=== PATIENT | female | born 1945 | race Caucasian/White ===

== ENCOUNTER 2018-01-26 15:27 | Inpatient (IN) ==
--- NOTE | 2018-01-26 15:36 | Emergency Department Report ---
General Adult HPI - General Chief complaint: Medical Clearance Stated complaint: [facility] clearance Time Seen by Provider: 01/26/18 15:32 Source: patient Mode of arrival: ambulatory Limitations: no limitations - History of Present Illness HPI narrative: 72-year-old female presents to the emergency department with a chief complaint of depression and wanting to get off of her Ativan. She denies homicidal/ suicidal ideation or plan. She denies any pain or discomfort currently. She has no other complaints or associated symptoms. She denies any self injury or self-harm. She was at home when her symptoms began which of been gradually progressive in nature over the past several days. She does not note any exacerbating or remitting factors. - Related Data Home Medications Medication Instructions Recorded Confirmed Acetaminophen [Pain Relief] 500 mg PO Q6H PRN 01/26/18 01/26/18 Albuterol HFA Inhaler [Ventolin 1 puff ORAL INH Q6H PRN 01/26/18 01/26/18 Hfa 90 mcg/actuation] Albuterol HFA Inhaler [Ventolin 2 puff ORAL INH BID 01/26/18 01/26/18 Hfa 90 mcg/actuation] Albuterol Sulfate 2.5 mg AEROSOL Q4H PRN 01/26/18 01/26/18 Albuterol Sulfate [Proair Hfa] 1 puff INH Q4H PRN 01/26/18 01/26/18 Aspirin 81 mg PO DAILY 01/26/18 01/26/18 Benzocaine [Anbesol] 1 applicatio MM PRN PRN 01/26/18 01/26/18 Betamethasone/Propylene Glyc 1 applicatio TP BID 01/26/18 01/26/18 [Betamethasone Dp Aug 0.05% Crm] Biotin 10 mg PO DAILY 01/26/18 01/26/18 Capsaicin/Menthol [Capzasin Quick 1 applicatio TP Q6H PRN 01/26/18 01/26/18 Relief Gel] Cholecalciferol (Vitamin D3) 4,000 unit PO DAILY 01/26/18 01/26/18 [Vitamin D3] Clotrimazole/Betamethasone 1 applicatio TOP BID 01/26/18 01/26/18 [Lotrisone Cream] Cyanocobalamin (Vitamin B-12) 1,000 mcg PO DAILY 01/26/18 01/26/18 [Vitamin B-12] Dapsone [Dapsone] 25 mg PO DAILY 01/26/18 01/26/18 FentaNYL PATCH [Duragesic Patch] 75 mcg TD Q72H 01/26/18 01/26/18 Fluticasone/Vilanterol Inhaler 1 puff INH DAILY 01/26/18 01/26/18 [Breo Ellipta 100-25 mcg Inhaler] Furosemide [Lasix 40 mg Tab] 40 mg PO DAILY 01/26/18 01/26/18 Halobetasol Propionate [Ultravate] 1 applicatio TOP BID 01/26/18 01/26/18 Hydrocortisone 1% Cream 1 applicatio TOP BID 01/26/18 01/26/18 [Cortizone-10 Cream] Ibuprofen 400 mg PO Q8H PRN 01/26/18 01/26/18 LORazepam [Lorazepam] 1 mg PO BID 01/26/18 01/26/18 Levothyroxine Sodium 100 mcg PO DAILY 01/26/18 01/26/18 Lisinopril [Prinivil] 10 mg PO DAILY 01/26/18 01/26/18 Lubiprostone [Amitiza] 24 mcg PO BID 01/26/18 01/26/18 Magnesium Hydroxide [Milk of 30 ml PO DAILY PRN 01/26/18 01/26/18 Magnesia] Meloxicam [Meloxicam] 7.5 mg PO DAILY 01/26/18 01/26/18 Menthol [Biofreeze] 1 applicatio TP Q12H PRN 01/26/18 01/26/18 Metoclopramide [Reglan] 5 mg PO DAILY 01/26/18 01/26/18 Mirtazapine [Remeron] 45 mg PO HS 01/26/18 01/26/18 Multivit-Min/FA/Lycopen/Lutein 1 tab PO DAILY 01/26/18 01/26/18 [Centrum Silver Tablet] Naloxegol Oxalate [Movantik] 25 mg PO DAILY 01/26/18 01/26/18 Neomycn/Bacitrc/Polymyx/Pramox 1 applicatio TP BID PRN 01/26/18 01/26/18 [Neosporin + Pain Relief Oint] Nortriptyline [Pamelor] 25 mg PO HS 01/26/18 01/26/18 Nystatin [Nystop] 1 applicatio TOP PRN PRN 01/26/18 01/26/18 [place]-3/Dha/Epa/Fish Oil [Fish Oil 1,000 mg PO DAILY 01/26/18 01/26/18 1,000 mg Softgel] Ondansetron Odt [Zofran Odt Tablet] 4 mg PO BID 01/26/18 01/26/18 Oxycodone HCl/Acetaminophen 1 tab PO QID 01/26/18 01/26/18 [Endocet 7.5-325 mg Tablet] Peg 3350 238 G Bottle [Miralax] 17 gm PO DAILY 01/26/18 01/26/18 Petrolatum,White [Vaseline] 1 applicatio TP BID 01/26/18 01/26/18 Polyvinyl Alcohol [Artificial 1 drop EACH EYE TID 01/26/18 01/26/18 Tears] Promethazine Plain Liq [Phenergan 6.25 - 12.5 mg PO Q4H PRN 01/26/18 01/26/18 Elixir] Propylene Glycol [Lubricant Eye 1 applicatio EACH EYE HS 01/26/18 01/26/18 Drops] Saline 0.65% Nasal [place] [Deep Sea 2 spray EA NOSTRIL PRN PRN 01/26/18 01/26/18 Nasal Moisturizing [place]] Sennosides [Senna] 8.6 mg PO BID 01/26/18 01/26/18 Trolamine Salicylate/Aloe Vera 1 applicatio TP Q4H PRN 01/26/18 01/26/18 [Aspercreme 10% Cream] Umeclidinium [place] [Incruse 1 puff IH DAILY 01/26/18 01/26/18 Ellipta] Vit C/E/Zn/Coppr/Lutein/Zeaxan 1 cap PO BID 01/26/18 01/26/18 [Preservision Areds 2 Softgel] Vortioxetine [Trintellix] 10 mg PO PM 01/26/18 01/26/18 Allergies Allergy/AdvReac Type Severity Reaction Status Date / Time aspirin Allergy Verified 01/26/18 15:55 azithromycin Allergy Verified 01/26/18 15:55 erythromycin base Allergy Verified 01/26/18 15:55 iron Allergy Verified 01/26/18 15:55 Review of Systems Constitutional: Denies: fever, chills Eyes: Denies: eye pain, vision change ENT: Denies: ear pain, throat pain Cardiovascular: Denies: chest pain, palpitations Respiratory: Denies: cough, dyspnea Gastrointestinal: Denies: abdominal pain, nausea, vomiting, diarrhea Genitourinary: Denies: urgency, dysuria Musculoskeletal: Denies: back pain, arthralgia Integumentary: Denies: erythema, rash Neurological: Denies: headache, numbness, paresthesias Psychiatric: Reports: depression. Denies: anxiety, suicidal thoughts, homicidal thoughts Endocrine: Denies: polydipsia, polyuria Hematological/Lymphatic: Denies: easy bruising, lymphadenopathy Allergic/Immunologic: Denies: facial swelling, urticaria PFSH Patient Stated Medical History Cerebrovascular Accident Yes Other HEENT Yes: DRY EYE, NOSE/NASAL ISSUES Hypertension Yes Other Cardiology Yes: HEART FAILURE, ATHEROSCLEROTIC HEART DISEAS Chronic Obstructive Pulmonary Yes Disease (COPD) Other Respiratory Yes: PNEUMONITIS Other GI Yes: CONSTIPATION Anemia Yes Depression Yes Other Behavioral Health Yes: INSOMNIA Surgical History: Multiple orthopedic surgeries. Family History: Reviewed and noncontributory. - Social History Smoking status: Never smoker Substance use type: does not use Alcohol intake frequency: does not drink Physical Exam - Limitations Limitations: no limitations - General General appearance: alert, in no apparent distress - Normal Exams: Head:: Normocephalic without trauma Eyes:: Pupils are PERRLA w/ EOMI, No scleral icterus, irritation, or foreign bodies noted ENMT:: No facial trauma, nasal exudates, pharyngeal erythema, or exudates are noted Dental: No fractured, loose, or missing teeth noted Neck:: Full range of motion, without adenopathy, JVD, bruits or thyromegaly Chest/Respirations:: Clear all cloud, with good airflow, and symmetry bilaterally Cardiovascular:: Regular rate and rhythm, without murmur or gallop, Pulses 2+ all extremities, capillary refill, <2 seconds all extremities Abdomen:: Bowel sounds positive, soft, non-tender, non-distended, no hepatosplenomegaly, masses or bruits noted Lymphatic:: No lymphadenopathy, or lymphedema noted Musculoskeletal:: No tenderness, or deformity noted, good range of motion, all extremities Integumentary:: No rashes, hives, or bruising noted, hair and nails, without abnormality Neurological:: Patient is alert, and oriented, cranial nerves, motor/sensory/ cerebellar, exams w/o gross deficits, to observation Psychiatric:: Patient exhibits, appropriate attention, emotion and affect Course Vital Signs Temperature 98.5 F 01/26/18 15:30 Pulse Rate 93 01/26/18 15:30 Respiratory Rate 20 01/26/18 15:30 Blood Pressure 173/75 H 01/26/18 15:30 Pulse Oximetry 20 L 01/26/18 15:30 Temperature 98.5 F 01/26/18 15:30 Pulse Rate 76 01/26/18 18:38 Respiratory Rate 20 01/26/18 15:36 Blood Pressure 137/79 01/26/18 18:38 Pulse Oximetry 99 01/26/18 18:38 Medical Decision Making - MDM Narrative Medical decision making narrative: Labs / imaging were discussed in detail with the patient and family and questions are answered. Patient is medically clear for further evaluation and treatment at a psychiatric facility. Patient's urinalysis is most likely contaminated we will obtain urine culture and if positive we'll initiate antibiotic therapy. Patient is accepted by Dr. Horton for further evaluation and treatment to [facility]. No further orders from excepting physician who is in agreement with the current plan of management. Inital pulse ox was not 20% and this was documented incorrectly by RN. - Differential Diagnosis depression, anxiety, metabolic disorder, UTI - Lab Data Result diagrams: 01/26/18 15:49 01/26/18 15:49 Lab Results 01/26/18 01/26/18 01/26/18 Range/Units 15:34 15:49 15:49 WBC 9.6 (4.5-11.0) T/MM3 RBC 3.86 L (4.00-5.20) M/MM3 Hgb 11.7 L (12-16) GM/DL Hct 37.0 (36-46) % MCV 95.9 (80-100) UM3 MCH 30.3 (26-34) UUG MCHC 31.6 (31-37) GM/DL RDW Std Deviation 41.4 (36.9-50.2) FL Plt Count 334 (130-400) T/MM3 MPV 9.2 L (9.4-12.4) UM3 Immature Gran % (Auto) 0.2 (0.0-0.5) % Neut % (Auto) 64.2 (33-66) % Lymph % (Auto) 26.8 (23-45) % Benzie % (Auto) 6.1 (0-9.0) % Eos % (Auto) 2.1 (0-4) % Baso % (Auto) 0.6 (0-2) % Neut # (Auto) 6.2 (1.8-7.7) T/MM3 Lymph # (Auto) 2.6 (1-4.8) T/MM3 Benzie # (Auto) 0.6 (0-0.8) T/MM3 Eos # (Auto) 0.2 (0-0.5) T/MM3 Baso # (Auto) 0.1 (0-0.2) T/MM3 Abs Immat Gran (auto) 0.02 (0.00-0.03) T/MM3 Turbidity < 20 (0-20) Sodium 146 H (134-144) MEQ/L Potassium 3.7 (3.6-5) MEQ/L Chloride 107 (98-107) MEQ/L Carbon Dioxide 26 (22-30) MEQ/L Anion Gap 13 (5-15) meq/L BUN 17.0 (7-17) MG/DL Creatinine 1.1 (0.7-1.2) mg/dL GFR Calculation 49 BUN/Creatinine Ratio 16 (6-26) RATIO Glucose 89 (65-110) MG/DL Calculated Osmolality 282 H (261-280) MOSM/KG Calcium 9.0 (8.4-10.2) MG/DL Total Bilirubin 0.20 (0.20-1.30) MG/DL Icterus Index < 2 (0-7) AST 23 (14-36) U/L ALT 12 (1-35) U/L Alkaline Phosphatase 121 (38-126) U/L Troponin I < 0.012 (0-0.12) ng/ml Total Protein 7.0 (6.3-8.2) g/dL Albumin 3.9 (3.5-5.0) g/dL Globulin 3.1 (2.4-3.6) G/DL Albumin/Globulin Ratio 1.3 (1.1-2.2) RATIO Specimen Hemolysis < 15 (0-25) Ur Collection Type Urine, void-cc/notcc Urine Color Yellow (YELLOW) Urine Clarity Clear Urine pH 6.5 (5.0-8.0) Ur Specific [place] 1.010 L (1.015-1.025) Urine Protein Negative (NEGATIVE) Urine Glucose (UA) Negative (NEGATIVE) Urine Ketones Negative (NEGATIVE) Urine Occult Blood Negative (NEGATIVE) Urine Nitrate Negative (NEGATIVE) Urine Bilirubin Negative (NEGATIVE) Urine Urobilinogen 0.2 (NORMAL) EU/DL Ur Leukocyte Esterase 1+ A (NEGATIVE) Urine RBC 0-1 (0-3) /HPF Urine WBC 3-5 (0-5) /HPF Ur Squamous Epith Cells 5-10 Urine Bacteria 1+ H (NEGATIVE) Ur Culture Indicated? Cult not indicated - Radiology Data CXR - No acute processes. - EKG Data EKG #1 EKG results narrative: Sinus rhythm. 75 bpm. No STEMI. Disposition Clinical Impression: Depression Qualifiers: Depression Type: unspecified Qualified Code(s): F32.9 - Major depressive disorder, single episode, unspecified Disposition: 65 To [facility] Condition: Stable Time of Disposition: 18:00 - Seen By: physician
--- OUTSIDE RECORDS SUMMARY | 2018-01-26 15:41 | External Medical Summary | Summary of Care ---
:1945 Author Name Gino Saunders M.D. Address [address] [place], [place] [id number] Care Team Providers Name Role Phone Gino Saunders M.D. Unavailable Unavailable Prabhu Bill M.D. Unavailable Unavailable Gino Saunders Primary Care Provider Unavailable Unavailable Unavailable Unavailable Functional Status Functional Status Health Issues Name Dates Details Functional status health issues are not documented Status: Cognitive Status Health Issues Name Dates Details Cognitive status health issues are not documented Status: Problems Name Dates Details New Cough Status: Active Deep Pain In The Left Hip Status: Active Continuous Drug Dependence (304.91) Status: Active Diarrhea (787.91, R19.7) Status: Active Dysuria (788.1, R30.0) Status: Active Dizziness (780.4, R42) Status: Active Feeling weak (780.79, R53.1) Status: Active Anemia (285.9, D64.9) Status: Active Amblyopia (368.00, H53.009) Status: Active 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, 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 Tinea pedis (110.4, B35.3) Status: Active Combined senile cataract (366.19, H25.819) Status: Active Fatigue (780.79, R53.83) Status: Active Nonexudative macular degeneration (362.51, H35.31) Status: Active Anemia in chronic kidney disease (CKD) (285.21, N18.9) Status: Active Hypothyroidism (244.9, E03.9) Status: Active Asthma (493.90, J45.909) Status: Active Obesity (278.00, E66.9) Status: Active Hypocalcemia (275.41, E83.51) Status: Active Posterior capsular opacification, obscuring vision (366.53, H26.499) Status : Active Pseudophakia of both eyes (V43.1, Z96.1) Status: Active Pneumonia (486, J18.9) Status: Active Radiculopathy (729.2, M54.10) Status: Active Myelopathy (336.9, G95.9) Status: Active Incipient senile cataract (366.12, H25.099) Status: Active Mental status change (780.97, R41.82) Status: Active Chronic renal insufficiency (585.9, N18.9) Status: Active Hypercholesterolemia (272.0, E78.0) Status: Active Macular hole (362.54, H35.349) Status: Active Nonexudative macular degeneration (362.51, H35.31) Status: Active Pseudophakia (V43.1, Z96.1) Status: Active Myopia (367.1, H52.10) Status: Active Aftercare following explantation of hip joint prosthesis (V54.82, Z47.32) Status: Active Constipation (564.00, K59.00) Status: Active Depression (311, F32.9) Status: Active Neck pain (723.1, M54.2) Status: Active Osteoporosis (733.00, M81.0) Status: Active Osteoarthritis (715.90, M19.90) Status: Active Anxiety (300.00, F41.9) Status: Active GERD (gastroesophageal reflux disease) (530.81, K21.9) Status: Active Vitamin d deficiency (268.9, E55.9) Status: Active CHF (congestive heart failure) (428.0, I50.9) Status: Active Chronic kidney disease, stage III (moderate) (585.3, N18.3) Status: Active Chronic obstructive pulmonary disease (496, J44.9) Status: Active Hip pain (719.45, M25.559) Status: Active Pain in thoracic spine (724.1, M54.6) Status: Active Lower back pain (724.2, M54.5) Status: Active Hypertension (401.9, I10) Status: Active Bursitis, hip (726.5, M70.70) Status: Active Medications Name Dates Details Multiple Vitamins Oral Tablet TAKE 1 TABLET DAILY. Refills: 0 Prabhu Bill M.D. Started 01-Jan-2013 ActiveFentaNYL 75 MCG/HR Transdermal Patch 72 Hour APPLY 1 PATCH EVERY 3 DAYS Refills: 0 Prabhu Bill M.D. Started 01-Jan-2013 ActivePercocet 10-325 MG Oral Tablet TAKE 1 TABLET Every 6 hours PRN pain Refills: 0 Prabhu Blil M.D. Started 01-Jan-2013 ActiveAtivan 0.5 MG Oral Tablet TAKE 1/2 TAB Q 6 HRS PRN Refills: 0 Gino Saunders M.D. Started 01-Jan-2013 ActiveMirtazapine 30 MG Oral Tablet TAKE 1 TABLET AT BEDTIME. Refills: 0 Gino Saunders M.D. Started 03-Jan-2012 ActiveReglan 10 MG Oral Tablet TAKE 1 TABLET TWICE DAILY. Refills: 0 Gino Saunders M.D. Started 01-Jan-2013 ActiveAmitriptyline HCl - 10 MG Oral Tablet TAKE 1 TABLET AT BEDTIME. Refills: 0 Gino Saunders M.D. Started 15-Jan-2016 ActiveCeleXA 40 MG Oral Tablet TAKE 1 TABLET DAILY. Refills: 0 Gino Saunders M.D. Started 15-Jan-2016 ActiveFish Oil 1000 MG Oral Capsule TAKE 1 CAPSULE DAILY. Refills: 0 Gino Saunders M.D. Started 15-Jan-2016 ActiveFurosemide 40 MG Oral Tablet Take 1 1/2 tabs daily Refills: 0 Gino Saunders M.D. Started 15-Jan-2016 ActiveLisinopril 10 MG Oral Tablet TAKE 1 TABLET DAILY. Refills: 0 Gino Saunders M.D. Started 15-Jan-2016 ActiveMeloxicam 7.5 MG Oral Tablet TAKE 1 TABLET DAILY. Refills: 0 Gino Saunders M.D. Started 15-Jan-2016 ActiveSynthroid 100 MCG Oral Tablet TAKE 1 TABLET DAILY. Refills: 0 Gino Saunders M.D. Started 15-Jan-2016 ActiveVitamin D-3 1000 UNIT Oral Capsule take 2 po daily Refills: 0 Gino Saunders M.D. Started 15-Jan-2016 ActiveZofran 4 MG Oral Tablet take 1 po Q am Refills: 0 Gino Saunders M.D. Started 15-Jan-2016 ActiveSenokot 8.6 MG Oral Tablet take 1 po bid Refills: 0 Gino Saunders M.D. Started 15-Jan-2016 Active Allergies and Adverse Reactions Name Dates Details azithromycin Status: Active Erythromycin TABS Status: Active Iron TABS Status: Active Past Medical History Name Dates Details History of Chronic obstructive pulmonary disease (496, J44.9) Status: Resolved History of dizziness (V13.89, Z87.898) Status: Resolved History of hypertension (V12.59, Z86.79) Status: Resolved History of pulmonary embolism (V12.55, Z86.711) Status: Resolved History of Stroke syndrome (434.91, I63.9) Status: Resolved History of Tonic pupillary reaction, left (379.46, H57.052) Status: Resolved History of transient cerebral ischemia (V12.54, Z86.73) Status: Resolved Procedures Procedure Dates Details History of Oophorectomy History of Anterior Gastropexy For Hiatal Hernia History of Partial Gastrectomy History of Gallbladder Surgery History of Appendectomy History of Hysterectomy History of Back Surgery History of Wrist Surgery History of Diagnostic Esophagogastroduodenoscopy Completed:15-Nov-2010 History of Hip Replacement History of Extracaps Cataract Extract With Prosthesis Insert Right Eye History of Extracaps Cataract Extract With Prosthesis Insert Left Eye History of Nerve Block Transforaminal Epidural Lumbar Completed:26-Jul-2012 History of Nerve Block Transforaminal Epidural Lumbar Completed:27-Sep-2012 History of Nerve Block Transforaminal Epidural Lumbar Completed:27-Dec-2012 History of Inj Of Subst Other Than Anes/Contrast/Neurol Completed:2012 Solns Cervical History of Inj Of Subst Other Than Completed:11-Jul-2013 Anesth/Antispasm/Contrast/Neurolytic Lumbar History of Open Fracture Reduction History of Cholecystectomy Procedures not documented Immunization Name Dates Details Pneumo (Pneumovax) Administered on:22-May-2006 Influenza Administered on:15-Jun-2007 Fluzone Intramuscular Injectable Administered on:19-May-2009 Influenza A (H1N1) Monoval Vac Intramuscular Suspension Administered on: Influenza Administered on:26-May-2010 Pneumovax 23 25 MCG/0.5ML Injection Injectable Administered on: Lot #: [id number] Influenza Comments: 06/25/08 @ [place] Family History Mother Name Dates Details Family history of Alcoholism Status: Active Father Name Dates Details Family history of Heart Disease (V17.49) Status: Active Brother Name Dates Details Family history of Heart Disease (V17.49) Status: Active Family history of Heart Disease (V17.49) Status: Active Social History Name Dates Details Smoking StatusFormer smoker Vital Signs Date Test Result Details 18-Jan-2016 14:08 BP Systolic 120 mm[Hg] Status: BP Diastolic 70 mm[Hg] Status: Temperature 97.6 f Status: Heart Rate 84 /min Status: Height 63 in Status: Weight 151 lb Status: O2 SAT 95 % Status: Body Mass Index Calculated 26.75 kg/m2 Status: Body Surface Area Calculated 1.72 m2 Status: Results Date Description Value Details 14-Jan-2016 11:45 BASIC METABOLIC PROFILE 1210 SODIUM 139 (Better) POTASSIUM 4.3 (Better) BUN 13 (Better) CREATININE, SERUM 1.15 (Better) GLUCOSE 124 (Better) Plan of Care Planned Observations Name Dates Details Planned Goals not documented Goal Planned Encounters Appointment; Provider: Sean Ballesteros On 10:15 Appointment; Provider: Gino Saundres On 13:00 Appointment; Provider: Cathleen Acevedo On 20-Jul-2011 09:30 Appointment; Provider: Cathleen Acevedo On 15-Jul-2011 13:00 Appointment; Provider: Mariana River On 17:30 Appointment; Provider: Rimma Miller On 11:00 Appointment; Provider: Mariana River On 08:15 Appointment; Provider: Mariana River On 03-Feb-2011 08:15 Appointment; Provider: Mariana River On 20-Jan-2011 09:45 Appointment; Provider: Nereida Barillas On 08-Feb-2009 09:00 Appointment; Provider: Nereida Barillas On 07-Feb-2009 12:45 Appointment; Provider: Reyes English On 02-Dec-2008 12:15 Appointment; Provider: Nereida Barillas On 24-Oct-2008 18:30 Appointment; Provider: Cathleen Acevedo On 20-Jun-2008 11:45 Instructions Instructions not documented Encounters Appointment; Gino Saunders On 18-Jan-2016 Encounter Diagnosis: Problem not documented 14:00 Appointment; Reyes English On 12-Jan-2015 Encounter Diagnosis: Problem not documented 10:45 Appointment; Reyes English On 13-Oct-2014 Encounter Diagnosis: Problem not documented 10:45 Appointment; Reyes English On 01-Sep-2014 Encounter Diagnosis: Problem not documented 11:15 Appointment; Reyes English On 13-Aug-2014 Encounter Diagnosis: Problem not documented 11:15 Appointment; Petr Car On 15-Apr-2014 Encounter Diagnosis: Problem not documented 15:00
--- OUTSIDE RECORDS SUMMARY | 2018-01-26 15:41 | External Medical Summary | Summary of Care ---
:1945 Author Name Gino Saunders M.D. Address Unavailable Unavailable , Care Team Providers Name Role Phone Nicky Whitman, Gino Unavailable Unavailable Favian Whitman, Sean Parekh Unavailable Unavailable Landy Whitman, Prabhu Stewart Unavailable Unavailable Gino Saunders Unavailable Unavailable Unavailable Unavailable Unavailable Functional Status Functional Status Health Issues Name Dates Details Functional status health issues are not documented Status: Cognitive Status Health Issues Name Dates Details Cognitive status health issues are not documented Status: Problems Name Dates Details Asthma (493.90, J45.909) Status: Active Hypercholesterolemia (272.0, E78.0) Status: Active Macular hole (362.54, H35.349) Status: Active Nonexudative macular degeneration (362.51, H35.31) Status: Active GERD (gastroesophageal reflux disease) (530.81, K21.9) Status: Active Vitamin D deficiency (268.9, E55.9) Status: Active Bursitis, hip (726.5, M70.70) Status: Active Hip pain (719.45, M25.559) Status: Active Osteoporosis (733.00, M81.0) Status: Active Pain in thoracic spine (724.1, M54.6) Status: Active Stomatitis (528.00, K12.1) Status: Active Anxiety (300.00, F41.9) Status: Active Neck pain (723.1, M54.2) Status: Active Osteoarthritis (715.90, M19.90) Status: Active Hypothyroidism (244.9, E03.9) Status: Active Constipation (564.00, K59.00) Status: Active Chronic obstructive pulmonary disease (496, J44.9) Status: Active Depression (311, F32.9) Status: Active Hypertension (401.9, I10) Status: Active Lower back pain (724.2, M54.5) Status: Active Medications Name Dates Details Mirtazapine 30 MG Oral Tablet TAKE 1 TABLET AT BEDTIME. Refills: 0 Ingham M.D., Gino Start 03-Jan-2012 Active LORazepam 0.5 MG Oral Tablet TAKE 1/2 TAB Q 6 HRS PRN Quantity: 90 Refills: 3 Gino Saunders M.D. Start 01-Jan-2013 Active Multiple Vitamins Oral Tablet TAKE 1 TABLET DAILY. Refills: 0 Landy Whitman Prabhu Terry Start 01-Jan-2013 Active Reglan 10 MG Oral Tablet TAKE 1 TABLET TWICE DAILY. Refills: 0 Gino Saunders M.D. Start 01-Jan-2013 Active CeleXA 40 MG Oral Tablet TAKE 1 TABLET DAILY. Refills: 0 Gino Saunders M.D. Start 15-Jan-2016 Active Fish Oil 1000 MG Oral Capsule TAKE 1 CAPSULE DAILY. Refills: 0 Gino Saunders M.D. Start 15-Jan-2016 Active Furosemide 40 MG Oral Tablet Take 1 1/2 tabs daily Refills: 0 Gino Saunders M.D. Start 15-Jan-2016 Active Lisinopril 10 MG Oral Tablet TAKE 1 TABLET DAILY. Refills: 0 Gino Saunders M.D. Start 15-Jan-2016 Active Meloxicam 7.5 MG Oral Tablet TAKE 1 TABLET DAILY. Refills: 0 Gino Saunders M.D. Start 15-Jan-2016 Active Synthroid 100 MCG Oral Tablet TAKE 1 TABLET DAILY. Refills: 0 Gino Saunders M.D. Start 15-Jan-2016 Active Vitamin D-3 1000 UNIT Oral Capsule take 2 po daily Refills: 0 Gino Saunders M.D. Start 15-Jan-2016 Active Senokot 8.6 MG Oral Tablet take 1 po bid Refills: 0 Gino Saunders M.D. Start 15-Jan-2016 Active Joshua's Mouth Rinse 2 tsp swish and spit TID Refills: 0 Sean Ballesteros M.D. Start Active Terbinafine HCl - 250 MG Oral Tablet 1 po for 14 days Quantity: 14 Refills: 0 Sean Balletseros M.D. Start Active Spiriva HandiHaler 18 MCG Inhalation Capsule INHALE CONTENTS OF 1 CAPSULE ONCE DAILY. Quantity: 1 Refills: 6 Gino Saunders M.D. Start 11-Apr-2016 Active 30 Capsule Box Albuterol Sulfate (2.5 MG/3ML) 0.083% Inhalation Nebulization Solution USE 1 UNIT DOSE EVERY 4-6 HOURS NEEDED FOR WHEEZING . Quantity: 1 Refills: 5 Gino Saunders M.D. Start 11-Apr-2016 Active 3 ML Plas Cont (60 Plas Conts) Breo Ellipta 100-25 MCG/INH Inhalation Aerosol Powder Breath Activated USE 1 INHALATION ONCE DAILY. Quantity: 1 Refills: 6 Gino Saunders M.D. Start 11-Apr-2016 Active 60 Aerosol Powder Breath Activated Disp Pack Fluticasone Propionate 50 MCG/ACT Nasal Suspension USE 1 SPRAY IN EACH NOSTRIL TWICE DAILY. Quantity: 1 Refills: 6 Gino Saunders M.D. Start 11-Apr-2016 Active 15.8 ML Bottle Amitriptyline HCl - 10 MG Oral Tablet TAKE 3 TABLET AT BEDTIME. Refills: 0 Gino Saunders M.D. Start 15-Jan-2016 Active FentaNYL 75 MCG/HR Transdermal Patch 72 Hour APPLY 1 PATCH EVERY 3 DAYS Quantity: 10 Refills: 0 Gino Saunders M.D. Start 01-Jan-2013 Active Nystatin Powder USE DIRECTED. Quantity: 3 Refills: 3 Gino Saunders M.D. Start 20-Apr-2016 Active Ondansetron HCl - 4 MG Oral Tablet take 1 po Q am PRN Quantity: 30 Refills: 2 Gino Saunders M.D. Start 15-Jan-2016 Active Polyethylene Glycol 3350 Oral Powder MIX 1 CAPFUL (17GM) IN 8 OUNCES OF WATER, JUICE, OR TEA AND DRINK DAILY. Quantity: 1 Refills: 3 Gino Saunders M.D. Start 26-Apr-2016 Active 238 GM Bottle Allergies and Adverse Reactions Name Dates Details azithromycin (Allergy) Status: Active Erythromycin TABS (Allergy) Status: Active Iron TABS (Allergy) Status: Active Past Medical History Name Dates Details History of Acute heart failure, unspecified heart failure type (428.9, I50.9) Status: Resolved History of Anemia in chronic kidney disease (CKD) (285.21, N18.9) Status: Resolved History of Chronic obstructive pulmonary disease (496, J44.9) Status: Resolved History of Chronic renal insufficiency (585.9, N18.9) Status: Resolved History of dizziness (V13.89, Z87.898) [...] History of Wrist Surgery History of Diagnostic Completed: 15-Nov-2010 Esophagogastroduodenoscopy History of Hip Replacement History of Extracaps Cataract Extract With Prosthesis Insert Right Eye History of Extracaps Cataract Extract With Prosthesis Insert Left Eye History of Nerve Block Transforaminal Completed: 26-Jul-2012 Epidural Lumbar History of Nerve Block Transforaminal Completed: 27-Sep-2012 Epidural Lumbar History of Nerve Block Transforaminal Completed: 27-Dec-2012 Epidural Lumbar History of Inj Of Subst Other Than Completed: 11-Jul-2013 Anes/Contrast/Neurol Solns Cervical History of Inj Of Subst Other Than Completed: 11-Jul-2013 Anesth/Antispasm/Contrast/Neurolytic Lumbar History of Open Fracture Reduction History of Cholecystectomy Drug Screen Pain Management 8400 Ordered: 20-May-2016 Immunization Name Dates Details Pneumo (Pneumovax) on: 22-May-2006 Influenza on: 15-Jun-2007 Fluzone INJ on: 19-May-2009 Influenza A (H1N1) Monoval Vac SUSP on: 31-Jul-2009 Influenza on: 26-May-2010 Pneumovax 23 25 MCG/0.5ML Injection Injectable on: Lot #: [id number] Influenza Comments: 06/25/08 @ [place] Family History Mother Name Dates Details Family history of Alcoholism Status: Active Father Name Dates Details Family history of Heart Disease (V17.49) Status: Active Brother Name Dates Details Family history of Heart Disease (V17.49) Status: Active Family history of Heart Disease (V17.49) Status: Active Social History Name Dates Details - Status: Smoking Status Name Dates Details Former smoker Vital Signs Date Test Result Details 23-May-2016 10:49 BP Systolic 138 mm[Hg] Status: Comments: Location: ; Position: BP Diastolic 76 mm[Hg] Status: Comments: Location: ; Position: Temperature 97.9 f Status: Comments: Method: Heart Rate 80 /min Status: Comments: Location: ; Weight 146 lb Status: Physical Findings 98 Status: Comments: O2 Saturation Body Mass Index Calculated 25.86 kg/m2 Status: Body Surface Area Calculated 1.69 m2 Status: Results Date Description Value Details Results not documented Plan of Care Name Dates Details Planned Observations Planned Goals not documented Planned Encounters Appointment; Provider: Dario Grewal M.D. On 05-Jul-2016 14:00 Appointment; Provider: Hyun Lockhart On 05-Jul-2016 13:00 Appointment; Provider: Gino Saunders M.D. On 22-Jun-2016 11:00 Interventions Provided Medication ChangesFentaNYL 75 MCG/HR Transdermal Patch 72 Hour - RenewLORazepam 0.5 MG Oral Tablet - RenewNystatin Powder - StartOxycodone-Acetaminophen 10-325 MG Oral Tablet - Renew Instructions Name Dates Details Instructions not documented Encounters Appointment; Gino Saunders M.D. On 13-Apr-2016 Encounter Diagnosis: Problem not documented 14:00 Appointment; Sean Ballesteros M.D. On 11-Apr-2016 Encounter Diagnosis: Problem not documented 09:30 Appointment; Gino Saunders M.D. On Encounter Diagnosis: Problem not documented 13:30 Appointment; Sean Ballesteros M.D. On Encounter Diagnosis: Problem not documented 08:30 Appointment; Sean Ballesteros M.D. On Encounter Diagnosis: Problem not documented 10:15 Appointment; Gino Saunders M.D. On Encounter Diagnosis: Problem not documented 15:30 Appointment; Gino Saunders M.D. On 18-Jan-2016 Encounter Diagnosis: Problem not documented 14:00 Appointment; Reyes English M.D. On 12-Jan-2015 Encounter Diagnosis: Problem not documented 10:45 Appointment; Ryees English M.D. On 13-Oct-2014 Encounter Diagnosis: Problem not documented 10:45 Appointment; Reyes English M.D. On 01-Sep-2014 Encounter Diagnosis: Problem not documented 11:15 Appointment; Reyes English M.D. On 13-Aug-2014 Encounter Diagnosis: Problem not documented 11:15
--- OUTSIDE RECORDS SUMMARY | 2018-01-26 15:41 | External Medical Summary | Summary of Care ---
:1945 Author Name Nicky Whitman, Gino Address Unavailable Unavailable , Care Team Providers Name Role Phone Nicky Whitman, Gino Unavailable Unavailable Favian Whitman, Sean Parekh Unavailable Unavailable Landy Whitman, Prabhu Stewart Unavailable Unavailable Carmina Whitman, Dario Unavailable Unavailable Gino Saunders Unavailable Unavailable Unavailable Unavailable Unavailable Functional Status Functional Status Health Issues Name Dates Details Functional status health issues are not documented Status: Cognitive Status Health Issues Name Dates Details Cognitive status health issues are not documented Status: Problems Name Dates Details Nonexudative macular degeneration (362.51, H35.3190) Status: Active GERD (gastroesophageal reflux disease) (530.81, K21.9) Status: Active Vitamin D deficiency (268.9, E55.9) Status: Active Osteoporosis (733.00, M81.0) Status: Active Pain in thoracic spine (724.1, M54.6) Status: Active Stomatitis (528.00, K12.1) Status: Active Osteoarthritis (715.90, M19.90) Status: Active Chronic obstructive pulmonary disease (496, J44.9) Status: Active TIA (transient ischemic attack) (435.9, G45.9) Status: Active Macular hole (362.54, H35.349) Status: Active Neck pain (723.1, M54.2) Status: Active Mouth sores (528.9, K13.79) Status: Active Lichen planus (697.0, L43.9) Status: Active Hypothyroidism (244.9, E03.9) Status: Active Hypercholesterolemia (272.0, E78.00) Status: Active High risk medication use (V58.69, Z79.899) Status: Active 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 Refills: 0 Prabhu Bill M.D. Start 01-Jan-2013 Active Mirtazapine 30 MG Oral Tablet TAKE 1 TABLET AT BEDTIME. Refills: 0 Gino Saunders M.D. Start 03-Jan-2012 Active Reglan 10 MG Oral Tablet TAKE 1 TABLET TWICE DAILY. Refills: 0 Gino Saunders M.D. Start 01-Jan-2013 Active Furosemide 40 MG Oral Tablet Take [...] 0 Gino Saunders M.D. Start 15-Jan-2016 Active [place]'s Mouth Rinse 2 tsp swish and spit TID Refills: 0 Sean Ballesteros M.D. Start Active Terbinafine HCl - 250 MG Oral Tablet 1 po for 14 days Quantity: 14 Refills: 0 Sean Ballesteros M.D. Start Active Spiriva HandiHaler 18 MCG [...] 0 Gino Saunders M.D. Start 15-Jan-2016 Active Nystatin Powder USE DIRECTED. Quantity: 3 Refills: 3 Gino Saunders M.D. Start 20-Apr-2016 Active Ondansetron HCl - 4 MG Oral Tablet take 1 po Q am PRN Quantity: 30 Refills: 2 Gino Saunders M.D. Start 15-Jan-2016 Active Fish Oil 1000 MG Oral Capsule TAKE 1 CAPSULE DAILY. Refills: 0 Gino Saunders M.D. Start 15-Jan-2016 Active Polyethylene Glycol 3350 Oral Powder MIX 1 CAPFUL (17GM) IN 8 OUNCES OF WATER, JUICE, OR TEA AND DRINK DAILY. Quantity: 1 Refills: 11 Gino Saunders M.D. Start 26-Apr-2016 Active 238 GM Bottle Nystatin 808639 UNIT/ML Mouth/Throat Suspension Swish and swallow 10 ml TID X 14 days. Quantity: 1 Refills: 1 Dario Grewal M.D. Start 05-Jul-2016 Active 473 ML Bottle CeleXA 20 MG Oral Tablet TAKE 1 TABLET DAILY. Refills: 0 Gino Saunders M.D. 15-Jan-2016 Active Dapsone 25 MG Oral Tablet TAKE 1 TABLET DAILY. Quantity: 30 Refills: 1 Dario Grewal M.D. Start 05-Jul-2016 Active Oxycodone-Acetaminophen 10-325 MG Oral Tablet Take 2 po every six hrs. Quantity: 240 Refills: 0 Gino Saunders M.D. Start 15-Apr-2016 Active FentaNYL 75 MCG/HR Transdermal Patch 72 Hour APPLY 1 PATCH EVERY 3 DAYS Quantity: 10 Refills: 0 [place] M.Gino Kraft Start 01-Jan-2013 Active LORazepam 0.5 MG Oral Tablet TAKE 1 TABLET EVERY 6 HOURS NEEDED. Quantity: 90 Refills: 2 Nicky M.D.Gino Start 01-Jan-2013 Active Allergies and Adverse Reactions Name Dates Details Aspirin Adult Low Strength CHEW (Allergy) Status: Active azithromycin (Allergy) Status: Active Erythromycin TABS (Allergy) [...] Cholecystectomy Drug Screen Pain Management 8400 Ordered: 21-Jun-2016 Immunization Name Dates Details Pneumo (Pneumovax) on: 22-May-2006 Influenza on: 15-Jun-2007 Fluzone INJ on: 19-May-2009 Influenza A (H1N1) Monoval Vac SUSP on: 31-Jul-2009 Influenza on: 26-May-2010 Pneumovax 23 25 MCG/0.5ML Injection Injectable on: Lot #: [id number] Influenza Comments: 06/25/08 @ [place] Family History Unknown Family Member Name Dates Details Family history of rheumatoid arthritis (V17.7, Z82.61) Comments: Family History Status: Active Family history of thyroid disease (V18.19, Z83.49) Comments: Family History Status: Active Family history of Chronic low back pain (724.2, M54.5) Comments: Family History Status: Active Mother Name Dates Details Family history of Alcoholism Status: Active Father Name Dates Details Family history of Heart Disease (V17.49) Status: Active Brother Name Dates Details Family history of Heart Disease (V17.49) Status: Active Family history of Heart Disease (V17.49) Status: Active Social History Name Dates Details - Status: Smoking Status Name Dates Details Former smoker Vital Signs Date Test Result Details 17-Aug-2016 15:14 BP Systolic 120 mm[Hg] Status: Comments: Location: ; Position: BP Diastolic 66 mm[Hg] Status: Comments: Location: ; Position: Temperature 97.9 f Status: Comments: Method: Heart Rate 94 /min Status: Comments: Location: ; Weight 146 lb Status: Physical Findings 98 Status: Comments: O2 Saturation Body Mass Index Calculated 25.86 kg/m2 Status: Body Surface Area Calculated 1.69 m2 Status: Results Date Description Value Details 27-Jul-2016 14:35 ALT 1185 ALT 17 U/L Range: 14-59 14:35 AST 1180 AST 21 U/L Range: 8-35 15:54 ERYTHROCYTE SED RATE 7800 Comments: Items were attached to this order: ESR ERYTHROCYTE SED RATE 12 mm/60 min. Range: 0-20 11-Aug-2016 15:40 MAMMOGRAM-SCREENING XM SCREENING Range: 0 Plan of Care Name Dates Details Planned Observations Planned Goals not documented Planned Encounters Appointment; Provider: Sean Ballesteros M.D. On 23-Nov-2016 11:00 Appointment; Provider: Dario Grewal M.D. On 24-Aug-2016 15:30 Appointment; Provider: Gino Saunders M.D. On 24-Aug-2016 10:30 Interventions Provided Medication ChangesFentaNYL 75 MCG/HR Transdermal Patch 72 Hour - RenewLORazepam 0.5 MG Oral Tablet - RenewOxycodone-Acetaminophen 10-325 MG Oral Tablet - Renew Instructions Name Dates Details Instructions not documented Encounters Appointment; Dario Grewal M.D. On 01-Aug-2016 Encounter Diagnosis: Problem not documented 13:15 Appointment; Dario Grewal M.D. On 05-Jul-2016 Encounter Diagnosis: Problem not documented 14:00 Appointment; Cindy Chavira P.A. On 05-Jul-2016 Encounter Diagnosis: Problem not documented 13:00 Appointment; Gino Saunders M.D. On 04-Jul-2016 Encounter Diagnosis: Problem not documented 11:30 Appointment; Gino Saunders M.D. On 22-Jun-2016 Encounter Diagnosis: Problem not documented 11:00 Appointment; Gino Saunders M.D. On 23-May-2016 Encounter Diagnosis: Problem not documented 10:30 Appointment; Sean Ballesteros M.D. On 18-May-2016 Encounter Diagnosis: Problem not documented 09:45 Appointment; Gino Saunders M.D. On 20-Apr-2016 Encounter Diagnosis: Problem not documented 10:45 Appointment; Gino Saunders M.D. On 13-Apr-2016 Encounter [...] documented 10:45 Appointment; Reyes English M.D. On 13-Oct-2014 Encounter Diagnosis: Problem not documented 10:45 Appointment; Reyes English M.D. On 01-Sep-2014 Encounter Diagnosis: Problem not documented 11:15
--- OUTSIDE RECORDS SUMMARY | 2018-01-26 15:41 | External Medical Summary | Summary of Care ---
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 Start 15-Jan-2016 Active [place]'s Mouth Rinse 2 tsp swish and spit [...] Start 26-Apr-2016 Active 238 GM Bottle Nystatin 095019 UNIT/ML Mouth/Throat Suspension Swish and swallow 10 ml TID X 14 days. Quantity: 1 Refills: 1 Dario Grewal M.D. Start 05-Jul-2016 Active 473 ML Bottle CeleXA 20 MG Oral Tablet TAKE 1 TABLET DAILY. Refills: 0 Gino Saunders M.D. Start 15-Jan-2016 Active Dapsone 25 MG Oral Tablet TAKE 1 TABLET DAILY. Quantity: 30 Refills: 1 Dario Grewal M.D. Start 05-Jul-2016 Active FentaNYL 75 MCG/HR Transdermal Patch 72 Hour APPLY 1 PATCH EVERY 3 DAYS Quantity: 10 Refills: 0 [place] ijmenez M.D. Start 01-Jan-2013 Active LORazepam 0.5 MG Oral Tablet TAKE 1 TABLET BID Quantity: 62 Refills: 2 [place] jimenez M.D. Start 01-Jan-2013 Active Oxycodone-Acetaminophen 10-325 MG Oral Tablet Take 1 po QID. Quantity: 124 Refills: 0 Gino Saunders M.D. Start 15-Apr-2016 Active Allergies and Adverse Reactions Name Dates [...] Lot #: [id number] Influenza Comments: 06/25/08 @ [place] Family History Unknown Family Member Name Dates [...] Ballesteros M.D. On 23-Nov-2016 11:00 Appointment; Provider: Gino Saunders M.D. On 20-Sep-2016 11:00 Appointment; Provider: Dario Grewal M.D. On 24-Aug-2016 15:30 Appointment; Provider: Gino Saunders M.D. On 24-Aug-2016 10:30 Interventions Provided Medication ChangesOxycodone-Acetaminophen 10-325 MG Oral Tablet - Renew Instructions Name Dates Details Instructions not documented Encounters Appointment; Gino Saunders M.D. On 17-Aug-2016 Encounter Diagnosis: Problem not documented 15:00 Appointment; Dario Grewal M.D. On 01-Aug-2016 Encounter [...]
--- OUTSIDE RECORDS SUMMARY | 2018-01-26 15:42 | External Medical Summary | Summary of Care ---
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, L60.3) Status: Active Bursitis, hip (726.5, M70.70) Status: Active Encounter for nursing home current use of dapsone (V58.69, Z79.899) Status: Active Chronic obstructive pulmonary disease (496, J44.9) Status: Active Hypothyroidism (244.9, E03.9) Status: Active Lichen planus (697.0, L43.9) Status: Active Anemia (285.9, D64.9) Status: Active Depression (311, F32.9) Status: Active Hypercholesterolemia (272.0, E78.00) Status: Active Lower back pain (724.2, M54.5) Status: Active Neck pain (723.1, M54.2) Status: Active Pain, hip (719.45, M25.559) Status: Active Anxiety (300.00, F41.9) Status: Active Asthma (493.90, J45.909) Status: Active Ataxic gait (781.2, R26.0) Status: Active Chronic GERD (530.81, K21.9) Status: Active Constipation (564.00, K59.00) Status: Active Hypertension (401.9, I10) Status: Active Medications Name Dates Details Multiple Vitamins Oral Tablet TAKE 1 TABLET DAILY. Refills: 0 Prabhu Bill M.D. Start 01-Jan-2013 Active Mirtazapine 30 MG Oral Tablet TAKE 1 TABLET AT BEDTIME. Refills: 0 Gino Saunders M.D. Start 03-Jan-2012 Active Furosemide 40 MG Oral Tablet Take 1 1/2 tabs daily Refills: 0 Gino Saunders M.D. 15-Jan-2016 Active Lisinopril 10 MG Oral Tablet TAKE 1 TABLET DAILY. Refills: 0 Gino Saunders M.D. Start 15-Jan-2016 Active Meloxicam 7.5 MG Oral Tablet TAKE 1 TABLET DAILY. Refills: 0 Gino Saunders M.D. 15-Jan-2016 Active Synthroid 100 MCG Oral Tablet [...] Refills: 0 Sean Ballesteros M.D. Start Active Albuterol Sulfate (2.5 MG/3ML) 0.083% Inhalation Nebulization Solution USE 1 UNIT DOSE EVERY 4-6 HOURS NEEDED FOR WHEEZING . Quantity: 1 Refills: 5 Gino Saunders M.D. Start 11-Apr-2016 Active 3 ML Plas Cont (60 Plas Conts) Nystatin Powder USE DIRECTED. Quantity: 3 Refills: 3 Gino Saunders M.D. Start 20-Apr-2016 Active Fish Oil 1000 MG Oral Capsule TAKE 1 CAPSULE DAILY. Refills: 0 Gino Saunders M.D. Start 15-Jan-2016 Active Polyethylene Glycol 3350 Oral Powder MIX 1 CAPFUL (17GM) IN 8 OUNCES OF WATER, JUICE, OR TEA AND DRINK DAILY. Quantity: 1 Refills: 11 Gino Saunders M.D. Start 26-Apr-2016 Active 238 GM Bottle Nystatin 115528 UNIT/ML Mouth/Throat Suspension Swish and swallow 10 ml TID X 14 days. Quantity: 1 Refills: 1 Dario Grewal M.D. Start 05-Jul-2016 Active 473 ML Bottle CeleXA 20 MG Oral Tablet TAKE 1 TABLET DAILY. Refills: 0 Gino Saunders M.D. Start 15-Jan-2016 Active Ondansetron HCl - 4 MG Oral Tablet take 1 po Q am PRN Quantity: 30 Refills: 2 Gino Saunders M.D. Start 15-Jan-2016 Active Aspir-Low 81 MG Oral Tablet Delayed Release TAKE 1 TABLET DAILY. Quantity: 31 Refills: 11 Gino Saunders M.D. Start 26-Aug-2016 Active LORazepam 0.5 MG Oral Tablet What tablet at 8 a.m. and at 2 PM and 7 PM. Quantity: 90 Refills: 2 Gino Saunders M.D. Start 01-Jan-2013 Active Breo Ellipta 100-25 MCG/INH Inhalation Aerosol Powder Breath Activated USE 1 INHALATION ONCE DAILY. Quantity: 1 Refills: 6 Gino Saunders M.D. Start 11-Apr-2016 Active 60 Aerosol Powder Breath Activated Disp Pack Dapsone 25 MG Oral Tablet TAKE 2 TABLETS BY MOUTH EVERY DAY Quantity: 60 Refills: 0 Dario Grewal M.D. Start 21-Oct-2016 Active Spiriva HandiHaler 18 MCG Inhalation Capsule INHALE CONTENTS OF 1 CAPSULE ONCE DAILY. Quantity: 1 Refills: 6 Gino Saunders M.D. Start 11-Apr-2016 Active 30 Capsule Box Reglan 5 MG Oral Tablet TAKE 1 TABLET TWICE DAILY. Refills: 0 Gino Saunders M.D. Start 01-Jan-2013 Active Nortriptyline HCl - 25 MG Oral Capsule TAKE 1 CAPSULE AT BEDTIME. Refills: 0 [place] M.DYolanda Gino Start 26-Oct-2016 Active Vitamin D-3 1000 UNIT Oral Capsule TAKE 4 CAPSULES DAILY. Quantity: 360 Refills: 2 [place] M.D., Gino Start 15-Jan-2016 Active FentaNYL 75 MCG/HR Transdermal Patch 72 Hour APPLY 1 PATCH EVERY 3 DAYS Quantity: 10 Refills: 0 [place] M.D. Gino Start 01-Jan-2013 Active Endocet 7.5-325 MG Oral Tablet 1 tablet every 6 hours Quantity: 120 Refills: 0 [place] M.D., Gion Start 15-Apr-2016 Active Allergies and Adverse Reactions [...] of Wrist Surgery History of Diagnostic Esophagogastroduodenoscopy Completed: 15-Nov-2010 History of Hip Replacement History of Extracaps Cataract Extract With Prosthesis Insert Right Eye History of Extracaps Cataract Extract With Prosthesis Insert Left Eye History of Nerve Block Transforaminal Epidural Lumbar Completed: 26-Jul-2012 History of Nerve Block Transforaminal Epidural Lumbar Completed: 27-Sep-2012 History of Nerve Block Transforaminal Epidural Lumbar Completed: 27-Dec-2012 History of Inj Of Subst Other Than Anes/Contrast/Neurol Completed: 2012 Solns Cervical History of Inj Of Subst Other Than Completed: 11-Jul-2013 Anesth/Antispasm/Contrast/Neurolytic Lumbar History of Open Fracture Reduction History of Cholecystectomy Procedures not documented Immunization Name Dates Details Pneumo (Pneumovax) on: 22-May-2006 Influenza on: 15-Jun-2007 Fluzone INJ on: 19-May-2009 Influenza A (H1N1) Monoval Vac SUSP on: 31-Jul-2009 Influenza on: 26-May-2010 Pneumovax 23 25 MCG/0.5ML Injection Injectable on: Lot #: [id number] Influenza Comments: 06/25/08 @ [place] Family History Unknown Family Member Name Dates [...] smoker Vital Signs Date Test Result Details 15-Nov-2016 11:00 BP Systolic 118 mm[Hg] Status: Comments: Location: ; Position: BP Diastolic 64 mm[Hg] Status: Comments: Location: ; Position: Temperature 98.6 f Status: Heart Rate 97 /min Status: Weight 143 lb Status: Physical Findings 98 Status: Comments: O2 Saturation Body Mass Index Calculated 25.33 kg/m2 Status: Body Surface Area Calculated 1.68 m2 Status: 19-Oct-2016 09:59 BP Systolic 130 mm[Hg] Status: Comments: Location: ; Position: BP Diastolic 78 mm[Hg] Status: Comments: Location: ; Position: Temperature 98.6 f Status: Comments: Method: Heart Rate 80 /min Status: Comments: Location: ; Weight 148 lb Status: Physical Findings 97 Status: Comments: O2 Saturation Body Mass Index Calculated 26.22 kg/m2 Status: Body Surface Area Calculated 1.7 m2 Status: 17-Oct-2016 16:19 BP Systolic 144 mm[Hg] Status: Comments: Location: ; Position: BP Diastolic 72 mm[Hg] Status: Comments: Location: ; Position: Results Date Description Value Details 17-Oct-2016 16:03 CBC w/ Auto Diff 7150 WBC 8.3 K/uL Range: 4.5-11.0 RBC 3.73 mil/uL Range: 3.60-5.00 HGB 12.0 g/dL Range: 12.0-16.0 Comments: Variance from previous testing noted.----- HCT 37.2 % Range: 36.0-48.0 MCV 99.9 fL (Above high threshold) Range: 80.0-99.0 MCH 32.1 pg Range: 27.3-32.5 MCHC 32.2 % Range: 32.0-36.0 RDW 13.6 % Range: 11.6-14.8 PLATELETS 394 K/uL Range: 150-400 MPV 6.7 fL Range: 6.0-11.0 %NEUTRO 53.7 % Range: 37.0-80.0 %LYMPHS 35.7 % Range: 13.0-50.0 %MONO 3.9 % Range: 0.0-12.0 %EOS 4.4 % Range: 0.0-7.0 %BASO 0.4 % Range: 0.0-2.5 %ALE 1.9 % Range: 0.0-5.0 NEUTRO 4.4 K/uL Range: 2.0-6.9 LYMPHS 3.0 K/uL Range: 0.6-3.4 MONOS 0.3 K/uL Range: 0.0-0.9 EOS 0.4 K/uL Range: 0.0-0.7 BASO 0.0 K/uL Range: 0.0-0.2 16:32 Comprehensive Metabolic Panel 1212 SODIUM 137 mmol/L Range: 133-144 POTASSIUM 4.5 mmol/L Range: 3.5-5.1 CHLORIDE 102 mmol/L Range: 98-110 CARBON DIOXIDE 25.3 mmol/L Range: 23.0-33.0 ANION GAP 10 mmol/L Range: 6-16 BUN 15 mg/dL Range: 7-18 CREATININE, SERUM 1.16 mg/dL (Above high Range: 0.55-1.02 threshold) BUN:CREATININE RATIO 13 EST GFR, 56 ml/min (Below low Range: >60 threshold) EST GFR, NON-AFR [place] 46 ml/min (Below low Range: >60 threshold) Comments: EST GFR is reported in ml/min per 1.73 m2 of body surface area. ----- GLUCOSE 90 mg/dL Range: 70-100 ALK PHOSPHATASE 146 U/L (Above high Range: 46-116 threshold) TOTAL BILIRUBIN 0.20 mg/dL Range: 0.20-1.00 AST 18 U/L Range: 8-35 ALT 11 U/L (Below low Range: 14-59 threshold) ALBUMIN 3.4 g/dL Range: 3.4-5.0 TOTAL PROTEIN 7.4 g/dL Range: 6.4-8.2 A/G RATIO 0.9 units (Below low Range: 1.0-1.8 threshold) CALCIUM 8.1 mg/dL (Below low Range: 8.5-10.1 threshold) 16:38 ERYTHROCYTE SED RATE 7800 ERYTHROCYTE SED RATE 13 mm/60 min. Range: 0-20 -Oct-2016 14:46 BASIC METABOLIC PROFILE 1210 SODIUM 136 mmol/L Range: 133-144 POTASSIUM 4.5 mmol/L Range: 3.5-5.1 CHLORIDE 102 mmol/L Range: 98-110 CARBON DIOXIDE 25.6 mmol/L Range: 23.0-33.0 ANION GAP 8 mmol/L Range: 6-16 BUN 14 mg/dL Range: 7-18 CREATININE, SERUM 1.06 mg/dL (Above high Range: 0.55-1.02 threshold) EST GFR, >60 ml/min Range: >60 EST GFR, NON-AFR [place] 51 ml/min (Below low Range: >60 threshold) Comments: EST GFR is reported in ml/min per 1.73 m2 of body surface area. ----- BUN:CREATININE RATIO 13 GLUCOSE 86 mg/dL Range: 70-100 CALCIUM 8.0 mg/dL (Below low Range: 8.5-10.1 threshold) 15:01 THYROID STIM. HORMONE 3602 THYROID STIM. HORMONE 1.308 uIU/mL Range: 0.550-4.780 Comments: No established reference ranges for infants and children &lt ;2 years of age----- 15:19 CBC w/ Auto Diff 7150 WBC 7.0 K/uL Range: 4.5-11.0 RBC 3.69 mil/uL Range: 3.60-5.00 HGB 11.7 g/dL (Below low threshold) Range: 12.0-16.0 HCT 36.7 % Range: 36.0-48.0 MCV 99.3 fL (Above high threshold) Range: 80.0-99.0 MCH 31.6 pg Range: 27.3-32.5 MCHC 31.8 % (Below low threshold) Range: 32.0-36.0 RDW 12.8 % Range: 11.6-14.8 PLATELETS 364 K/uL Range: 150-400 MPV 7.5 fL Range: 6.0-11.0 %NEUTRO 62.0 % Range: 37.0-80.0 %LYMPHS 28.5 % Range: 13.0-50.0 %MONO 4.4 % Range: 0.0-12.0 %EOS 3.1 % Range: 0.0-7.0 %BASO 0.5 % Range: 0.0-2.5 %ALE 1.5 % Range: 0.0-5.0 NEUTRO 4.3 K/uL Range: 2.0-6.9 LYMPHS 2.0 K/uL Range: 0.6-3.4 MONOS 0.3 K/uL Range: 0.0-0.9 EOS 0.2 K/uL Range: 0.0-0.7 BASO 0.0 K/uL Range: 0.0-0.2 Plan of Care Name Dates Details Planned Observations Planned Goals not documented Planned Encounters Appointment; Provider: Dario Grewal M.D. On 10-Jan-2017 14:00 Appointment; Provider: Gino Saunders M.D. On 14-Dec-2016 11:00 Interventions Provided Medication ChangesEndocet 7.5-325 MG Oral Tablet - RenewFentaNYL 75 MCG/HR Transdermal Patch 72 Hour - Renew Instructions Name Dates Details Instructions not documented Encounters Appointment; Gino Saunders M.D. On 19-Oct-2016 Encounter Diagnosis: Problem not documented 10:30 Appointment; Dario Grewal M.D. On 17-Oct-2016 Encounter Diagnosis: Problem not documented 16:30 Appointment; Gino Saunders M.D. On 20-Sep-2016 Encounter Diagnosis: Problem not documented 11:00 Appointment; Dario Grewal M.D. On 24-Aug-2016 Encounter Diagnosis: Problem not documented 15:30 Appointment; Gino Saunders M.D. On 17-Aug-2016 Encounter [...]
--- OUTSIDE RECORDS SUMMARY | 2018-01-26 15:42 | External Medical Summary | Summary of Care ---
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, L60.3) Status: Active Asthma (493.90, J45.909) Status: Active Ataxic gait (781.2, R26.0) Status: Active Bursitis, hip (726.5, M70.70) Status: Active Constipation (564.00, K59.00) Status: Active Pain, hip (719.45, M25.559) Status: Active Lichen planus (697.0, L43.9) Status: Active 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 Start 15-Jan-2016 Active [place]'s Mouth Rinse 2 tsp swish and spit TID Refills: 0 Saen Ballesteros M.D. Start Active Terbinafine HCl - [...] 3 ML Plas Cont (60 Plas Conts) Fluticasone Propionate 50 MCG/ACT Nasal Suspension USE [...] Start 26-Apr-2016 Active 238 GM Bottle Nystatin 112338 UNIT/ML Mouth/Throat Suspension Swish and swallow 10 [...] 11 Gino Saunders M.D. Start 26-Aug-2016 Active Endocet 7.5-325 MG Oral Tablet TAKE 1 TABLET EVERY 6 HOURS NEEDED FOR PAIN. Quantity: 120 Refills: 0 Gino Saunders M.D. Start 15-Apr-2016 Active FentaNYL 75 MCG/HR Transdermal Patch 72 Hour APPLY 1 PATCH EVERY 3 DAYS Quantity: 10 Refills: 0 Gino Saunders M.D. Start 01-Jan-2013 Active LORazepam 0.5 MG Oral Tablet What tablet at 8 a.m. and at 2 PM and 7 PM. Quantity: 90 Refills: 2 Gino Saunders M.D. Start 01-Jan-2013 Active Dapsone 25 MG Oral Tablet TAKE 2 TABLETS BY MOUTH EVERY DAY CALL TO RE-ORDER Quantity: 60 Refills: 0 Carmina Whitman Dario Start 27-Sep-2016 Active Breo Ellipta 100-25 MCG/INH Inhalation Aerosol Powder Breath Activated USE 1 INHALATION ONCE DAILY. Quantity: 1 Refills: 6 Gino Saunders M.D. Start 11-Apr-2016 Active 60 Aerosol Powder Breath Activated Disp Pack Allergies and Adverse Reactions Name Dates Details [...] Lot #: [id number] Influenza Comments: 06/25/08 @ [place] Family History Unknown Family Member Name Dates [...] smoker Vital Signs Date Test Result Details 17-Oct-2016 16:19 BP Systolic 144 mm[Hg] Status: Comments: Location: ; Position: BP Diastolic 72 mm[Hg] Status: Comments: Location: ; Position: 20-Sep-2016 10:23 BP Systolic 118 mm[Hg] Status: Comments: Location: ; Position: BP Diastolic 66 mm[Hg] Status: Comments: Location: ; Position: Temperature 99.3 f Status: Heart Rate 82 /min Status: Physical Findings 16 Status: Comments: Respiration Physical Findings 98 Status: Comments: O2 Saturation 20-Sep-2016 10:15 Weight 148 lb Status: Body Mass Index Calculated 26.22 kg/m2 Status: Body Surface Area Calculated 1.7 m2 Status: Results Date Description Value Details 20-Sep-2016 14:38 Comprehensive Metabolic Panel 1212 SODIUM 140 mmol/L Range: 133-144 POTASSIUM 4.9 mmol/L Range: 3.5-5.1 CHLORIDE 105 mmol/L Range: 98-110 CARBON DIOXIDE 24.2 mmol/L Range: 23.0-33.0 ANION GAP 11 mmol/L Range: 6-16 BUN 13 mg/dL Range: 7-18 CREATININE, SERUM 1.19 mg/dL (Above high Range: 0.55-1.02 threshold) BUN:CREATININE RATIO 11 EST GFR, 54 ml/min (Below low Range: >60 threshold) EST GFR, NON-AFR MACANESE 45 ml/min (Below low Range: >60 threshold) Comments: EST GFR is reported in ml/min per 1.73 m2 of body surface area. ----- GLUCOSE 79 mg/dL Range: 70-100 ALK PHOSPHATASE 141 U/L (Above high Range: 46-116 threshold) TOTAL BILIRUBIN 0.30 mg/dL Range: 0.20-1.00 AST 18 U/L Range: 8-35 ALT 13 U/L (Below low Range: 14-59 threshold) ALBUMIN 3.1 g/dL (Below low Range: 3.4-5.0 threshold) TOTAL PROTEIN 7.2 g/dL Range: 6.4-8.2 A/G RATIO 0.8 units (Below low Range: 1.0-1.8 threshold) CALCIUM 8.1 mg/dL (Below low Range: 8.5-10.1 threshold) 15:06 CBC w/ Auto Diff 7150 WBC 6.6 K/uL Range: 4.5-11.0 RBC 3.22 mil/uL (Below low threshold) Range: 3.60-5.00 HGB 10.2 g/dL (Below low threshold) Range: 12.0-16.0 HCT 31.4 % (Below low threshold) Range: 36.0-48.0 MCV 97.6 fL Range: 80.0-99.0 MCH 31.8 pg Range: 27.3-32.5 MCHC 32.6 % Range: 32.0-36.0 RDW 14.7 % Range: 11.6-14.8 PLATELETS 475 K/uL (Above high threshold) Range: 150-400 MPV 8.4 fL Range: 6.0-11.0 %NEUTRO 54.0 % Range: 37.0-80.0 %LYMPHS 34.7 % Range: 13.0-50.0 %MONO 5.2 % Range: 0.0-12.0 %EOS 4.2 % Range: 0.0-7.0 %BASO 0.6 % Range: 0.0-2.5 %ALE 1.4 % Range: 0.0-5.0 NEUTRO 3.5 K/uL Range: 2.0-6.9 LYMPHS 2.3 K/uL Range: 0.6-3.4 MONOS 0.3 K/uL Range: 0.0-0.9 EOS 0.3 K/uL Range: 0.0-0.7 BASO 0.0 K/uL Range: 0.0-0.2 15:40 ERYTHROCYTE SED RATE 7800 ERYTHROCYTE SED RATE 34 mm/60 min. (Above high threshold) Range: 0-20 17-Oct-2016 16:03 CBC w/ Auto Diff 7150 [...] low Range: >60 threshold) EST GFR, NON-AFR MACANESE 46 ml/min (Below low Range: >60 threshold) [...] SED RATE 13 mm/60 min. Range: 0-20 Plan of Care Name Dates Details Planned Observations Planned Goals not documented Planned Encounters Appointment; Provider: Dario Grewal M.D. On 10-Jan-2017 14:00 Appointment; Provider: Sean Ballesteros M.D. On 23-Nov-2016 11:00 Appointment; Provider: Gino Saunders M.D. On 19-Oct-2016 10:30 Instructions Name Dates Details Instructions not documented Encounters Appointment; Gino Saunders M.D. On 20-Sep-2016 Encounter [...]
--- OUTSIDE RECORDS SUMMARY | 2018-01-26 15:42 | External Medical Summary | Summary of Care ---
[...] Status: Active Osteoarthritis (715.90, M19.90) Status: Active Constipation (564.00, K59.00) Status: Active Chronic obstructive pulmonary disease (496, J44.9) Status: Active Anxiety (300.00, F41.9) Status: Active Ataxic gait (781.2, R26.0) Status: Active Depression (311, F32.9) Status: Active TIA (transient ischemic attack) (435.9, G45.9) Status: Active Hypertension (401.9, I10) Status: Active Lower back pain (724.2, M54.5) Status: Active Macular hole (362.54, H35.349) Status: Active Neck pain (723.1, M54.2) Status: Active Mouth sores (528.9, K13.79) Status: Active Lichen planus (697.0, L43.9) Status: Active Hypothyroidism (244.9, E03.9) Status: Active Hypercholesterolemia (272.0, E78.00) Status: Active Asthma (493.90, J45.909) Status: Active High risk medication use (V58.69, Z79.899) Status: Active 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 Start 15-Jan-2016 Active [place]'s Mouth Rinse 2 tsp swish and spit [...] 0 Gino Saunders M.D. Start 01-Jan-2013 Active Oxycodone-Acetaminophen 10-325 MG Oral Tablet Take 2 po every six hrs. Quantity: 240 Refills: 0 Gino Saunders M.D. Start 15-Apr-2016 Active LORazepam 0.5 MG Oral Tablet TAKE 1 TABLET EVERY 6 HOURS NEEDED. Quantity: 90 Refills: 2 Gino Saunders M.D. Start 01-Jan-2013 Active Polyethylene Glycol 3350 Oral Powder MIX 1 CAPFUL (17GM) IN 8 OUNCES OF WATER, JUICE, OR TEA AND DRINK DAILY. Quantity: 1 Refills: 11 Gino Saunders M.D. Start 26-Apr-2016 Active 238 GM Bottle Nystatin 498416 UNIT/ML Mouth/Throat Suspension Swish and swallow 10 ml TID X 14 days. Quantity: 1 Refills: 1 Carmina Whitman, Dario Start 05-Jul-2016 Active 473 ML Bottle Dapsone 25 MG Oral Tablet TAKE 1 TABLET DAILY. Quantity: 30 Refills: 1 Carmina Whitman, Dario Start 05-Jul-2016 Active CeleXA 20 MG Oral Tablet TAKE 1 TABLET DAILY. Refills: 0 Gino Saunders M.D. Start 15-Jan-2016 Active Allergies and Adverse Reactions Name [...] Drug Screen Pain Management 8400 Ordered: 21-Jun-2016 CBC w/ Auto Diff 7150 Ordered: 22-Jun-2016 BASIC METABOLIC PROFILE 1210 Ordered: 22-Jun-2016 ALT 1185 Ordered: 27-Jul-2016 AST 1180 Ordered: 27-Jul-2016 Immunization Name Dates Details Pneumo (Pneumovax) on: 22-May-2006 Influenza on: 15-Jun-2007 Fluzone INJ on: 19-May-2009 Influenza A (H1N1) Monoval Vac SUSP on: 31-Jul-2009 Influenza on: 26-May-2010 Pneumovax 23 25 MCG/0.5ML Injection Injectable on: Lot #: [id number] Influenza Comments: 06/25/08 @ [place] Family History Unknown Family Member Name Dates [...] smoker Vital Signs Date Test Result Details 05-Jul-2016 14:07 BP Systolic 108 mm[Hg] Status: Comments: Location: ; Position: BP Diastolic 60 mm[Hg] Status: Comments: Location: ; Position: Weight 149 lb Status: Body Mass Index Calculated 26.39 kg/m2 Status: Body Surface Area Calculated 1.71 m2 Status: 04-Jul-2016 11:51 BP Systolic 118 mm[Hg] Status: Comments: Location: ; Position: BP Diastolic 68 mm[Hg] Status: Comments: Location: ; Position: Temperature 98.8 f Status: Heart Rate 81 /min Status: Weight 149 lb Status: Physical Findings 96 Status: Comments: O2 Saturation Body Mass Index Calculated 26.39 kg/m2 Status: Body Surface Area Calculated 1.71 m2 Status: Results Date Description Value Details 05-Jul-2016 15:23 CBC w/ Auto Diff 7150 WBC 7.6 K/uL Range: 4.5-11.0 RBC 4.18 mil/uL Range: 3.60-5.00 HGB 13.0 g/dL Range: 12.0-16.0 HCT 39.2 % Range: 36.0-48.0 MCV 93.8 fL Range: 80.0-99.0 MCH 31.2 pg Range: 27.3-32.5 MCHC 33.3 % Range: 32.0-36.0 RDW 13.5 % Range: 11.6-14.8 PLATELETS 312 K/uL Range: 150-400 MPV 6.5 fL Range: 6.0-11.0 %NEUTRO 55.4 % Range: 37.0-80.0 %LYMPHS 35.6 % Range: 13.0-50.0 %MONO 4.2 % Range: 0.0-12.0 %EOS 2.4 % Range: 0.0-7.0 %BASO 0.5 % Range: 0.0-2.5 %ALE 2.0 % Range: 0.0-5.0 NEUTRO 4.2 K/uL Range: 2.0-6.9 LYMPHS 2.7 K/uL Range: 0.6-3.4 MONOS 0.3 K/uL Range: 0.0-0.9 EOS 0.2 K/uL Range: 0.0-0.7 BASO 0.0 K/uL Range: 0.0-0.2 15:52 ERYTHROCYTE SED RATE 7800 ERYTHROCYTE SED RATE 16 mm/60 min. Range: 0-20 15:54 Comprehensive Metabolic Panel 1212 SODIUM 140 mmol/L Range: 133-144 POTASSIUM 4.5 mmol/L Range: 3.5-5.1 CHLORIDE 109 mmol/L Range: 98-110 CARBON DIOXIDE 26.2 mmol/L Range: 23.0-33.0 ANION GAP 5 mmol/L (Below low Range: 6-16 threshold) BUN 14 mg/dL Range: 7-18 CREATININE, SERUM 1.17 mg/dL (Above high Range: 0.55-1.02 threshold) BUN:CREATININE RATIO 12 EST GFR, 55 ml/min (Below low Range: >60 threshold) EST GFR, NON-AFR [place] 46 ml/min (Below low Range: >60 threshold) Comments: EST GFR is reported in ml/min per 1.73 m2 of body surface area. ----- GLUCOSE 85 mg/dL Range: 70-100 ALK PHOSPHATASE 140 U/L (Above high Range: 46-116 threshold) TOTAL BILIRUBIN 0.20 mg/dL Range: 0.20-1.00 AST 17 U/L Range: 8-35 ALT 14 U/L Range: 14-59 ALBUMIN 3.3 g/dL (Below low Range: 3.4-5.0 threshold) TOTAL PROTEIN 7.0 g/dL Range: 6.4-8.2 A/G RATIO 0.9 units (Below low Range: 1.0-1.8 threshold) CALCIUM 8.5 mg/dL Range: 8.5-10.1 07-Jul-2016 09:06 G-6-PD, Quant, Blood and RBC Comments: Testing performed at : [DA] [facility], [address] [place] [address], [phone], , Business Dean: YING Maldonado MDTesting performed at: [ BN] [facility], [facility] [id number] [place] [address], [phone], , Business Dean: Nito Hsieh MD RBC 4.13 x10E6/uL Range: 3.77-5.28 G-6-PD, QUANT 300 U/10E12 RBC Range: 146-376 Comments: When decreased, G-6-PD, Quant. values are associated withacute hemolytic anemia when deficient individuals areexposed to oxidative stress, such as with certainmedications (e.g., primaquine), infection, or ingestion offava beans. Caution: In patients with acute hemolysis(e.g. , abnormally low RBC values), testing for G-6-PD maybe falsely normal because older erythrocytes with a higherenzyme deficiency h ave been hemolyzed. Young erythrocytesand reticulocytes have normal or near-normal enzymeactivity. Normal values of G-6-PD may be measured forseveral weeks following a hemolytic event.----- Plan of Care Name Dates Details Planned Observations Planned Goals not documented Planned Encounters Appointment; Provider: Sean Ballesteros M.D. On 23-Nov-2016 11:00 Appointment; Provider: Gino Saunders M.D. On 24-Aug-2016 10:30 Appointment; Provider: Dario Grewal M.D. On 01-Aug-2016 13:15 Interventions Provided Labs/Procedures/ImagingBASIC METABOLIC PROFILE 1210; To be Done: 27Jul2016 11: 23AMCBC w/ Auto Diff 7150; To be Done: 27Jul2016 11:23AM Instructions Name Dates Details Instructions not documented Encounters Appointment; Dario Grewal M.D. On 05-Jul-2016 Encounter [...]
--- OUTSIDE RECORDS SUMMARY | 2018-01-26 15:42 | External Medical Summary | Summary of Care ---
[...] Dates Details Asthma (493.90, J45.909) Status: Active Nonexudative macular degeneration (362.51, H35.3190) Status: Active [...] Status: Active Anxiety (300.00, F41.9) Status: Active Hypercholesterolemia (272.0, E78.00) Status: Active Ataxic gait (781.2, R26.0) Status: Active Depression (311, F32.9) Status: Active TIA (transient ischemic attack) (435.9, G45.9) Status: Active Hypertension (401.9, I10) Status: Active Hypothyroidism (244.9, E03.9) Status: Active Lower back pain (724.2, M54.5) Status: Active Macular hole (362.54, H35.349) Status: Active Neck pain (723.1, M54.2) Status: Active Lichen planus (697.0, L43.9) Status: Active Mouth sores (528.9, K13.79) Status: Active Medications Name Dates Details Multiple [...] 0 Gino Saunders M.D. Start 15-Jan-2016 Active [place] Mouth Rinse 2 tsp swish and spit [...] 2 Gino Saunders M.D. Start 15-Jan-2016 Active Citalopram Hydrobromide 40 MG Oral Tablet TAKE 1 TABLET DAILY. Quantity: 90 Refills: 3 Gino Saunders M.D. Start 15-Jan-2016 Active Fish [...] Start 26-Apr-2016 Active 238 GM Bottle Nystatin 291455 UNIT/ML Mouth/Throat Suspension Swish and swallow 10 ml TID X 14 days. Quantity: 1 Refills: 1 Carmina Whitman, Dario Start 05-Jul-2016 Active 473 ML Bottle Dapsone 25 MG Oral Tablet TAKE 1 TABLET DAILY. Quantity: 30 Refills: 1 Carmina Whitman, Dario Start 05-Jul-2016 Active Allergies and Adverse Reactions Name Dates [...] Drug Screen Pain Management 8400 Ordered: 20-May-2016 Drug Screen Pain Management 8400 Ordered: 21-Jun-2016 BASIC METABOLIC PROFILE 1210 Ordered: 22-Jun-2016 CBC w/ Auto Diff 7150 Ordered: 22-Jun-2016 Comprehensive Metabolic Panel 1212 Ordered: 05-Jul-2016 ERYTHROCYTE SED RATE 7800 Ordered: 05-Jul-2016 G-6-PD, Quant, Blood and RBC [id number] Ordered: 05-Jul-2016 Immunization Name Dates Details Pneumo (Pneumovax) on: 22-May-2006 Influenza on: 15-Jun-2007 Fluzone INJ on: 19-May-2009 Influenza A (H1N1) Monoval Vac SUSP on: 31-Jul-2009 Influenza on: 26-May-2010 Pneumovax 23 25 MCG/0.5ML Injection Injectable on: Lot #: [id number] Influenza Comments: 06/25/08 @ [place] Family History Unknown Family Member Name Dates [...] Location: ; Position: Temperature 98.8 f Status: Comments: Method: Heart Rate 81 /min Status: Comments: Location: ; Weight 149 lb Status: Physical Findings 96 Status: Comments: O2 Saturation Body Mass Index Calculated 26.39 kg/m2 Status: Body Surface Area Calculated 1.71 m2 Status: 22-Jun-2016 11:03 BP Systolic 106 mm[Hg] Status: Comments: Location: ; Position: BP Diastolic 58 mm[Hg] Status: Comments: Location: ; Position: Temperature 98.8 f Status: Heart Rate 63 /min Status: Weight 149 lb Status: Physical Findings 98 Status: Comments: [...] Grewal M.D. On 01-Aug-2016 13:15 Interventions Provided Medication ChangesDapsone 25 MG Oral Tablet - StartNystatin 358499 UNIT/ML Mouth /Throat Suspension - StartLabs/Procedures/ImagingComprehensive Metabolic Panel 1212; To be Done: 05 Jul 2016ERYTHROCYTE SED RATE 7800; To be Done: 05 Jul 2016G -6-PD, Quant, Blood and RBC [id number]; To be Done: 05 Jul 2016CBC w/ Auto Diff 7150 ; Done: Jul 05 2016 3:14PM Instructions Name Dates Details Instructions not documented Encounters Appointment; Cindy Chavira P.A. On 05-Jul-2016 Encounter [...]
--- OUTSIDE RECORDS SUMMARY | 2018-01-26 15:43 | External Medical Summary | Summary of Care ---
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 Start 15-Jan-2016 Active [place] Mouth Rinse 2 tsp swish and spit [...] Start 26-Apr-2016 Active 238 GM Bottle Nystatin 051194 UNIT/ML Mouth/Throat Suspension Swish and swallow 10 [...] of Open Fracture Reduction History of Cholecystectomy Comprehensive Metabolic Panel 1212 Ordered: 03-Oct-2016 ERYTHROCYTE SED RATE 7800 Ordered: 03-Oct-2016 Immunization Name Dates Details Pneumo (Pneumovax) on: 22-May-2006 Influenza on: 15-Jun-2007 Fluzone INJ on: 19-May-2009 Influenza A (H1N1) Monoval Vac SUSP on: 31-Jul-2009 Influenza on: 26-May-2010 Pneumovax 23 25 MCG/0.5ML Injection Injectable on: Lot #: [id number] Influenza Comments: 06/25/08 @ [place] Family History Unknown Family Member Name Dates [...] smoker Vital Signs Date Test Result Details 20-Sep-2016 10:23 BP Systolic 118 mm[Hg] Status: Comments: Location: ; Position: BP Diastolic 66 mm[Hg] Status: Comments: Location: ; Position: Temperature 99.3 f Status: Comments: Method: Heart Rate 82 /min Status: Comments: Location: ; Physical Findings 16 Status: Comments: Respiration Physical [...] low Range: >60 threshold) EST GFR, NON-AFR SAMOAN 45 ml/min (Below low Range: >60 threshold) [...] of Care Name Dates Details Planned Observations Comprehensive Metabolic Panel 1212 On 06-Oct-2016 Intent ERYTHROCYTE SED RATE 7800 On 06-Oct-2016 Intent Planned Goals not documented Planned Encounters Appointment; Provider: Sean Ballesteros M.D. On 23-Nov-2016 11:00 Appointment; Provider: Gino Saunders M.D. On 19-Oct-2016 10:30 Interventions Provided Labs/Procedures/ImagingCBC w/ Auto Diff 7150; Done: Oct 17 2016 3:59PM Instructions Name Dates Details Instructions not documented [...]
--- OUTSIDE RECORDS SUMMARY | 2018-01-26 15:43 | External Medical Summary | Summary of Care ---
[...] Status: Active Osteoporosis (733.00, M81.0) Status: Active Stomatitis (528.00, K12.1) Status: Active Osteoarthritis (715.90, M19.90) Status: Active TIA (transient ischemic attack) (435.9, G45.9) Status: Active Macular hole (362.54, H35.349) Status: Active Mouth sores (528.9, K13.79) Status: Active High risk medication use (V58.69, Z79.899) Status: Active Onychoschizia (703.8, L60.3) Status: Active Encounter for [facility] current use of dapsone (V58.69, Z79.899) Status: Active Hypothyroidism (244.9, E03.9) Status: Active Lichen planus (697.0, L43.9) Status: Active Anemia (285.9, D64.9) Status: Active Hypercholesterolemia (272.0, E78.00) Status: Active Anxiety (300.00, F41.9) Status: Active Constipation (564.00, K59.00) Status: Active Ataxic gait (781.2, R26.0) Status: Active Bursitis, hip (726.5, M70.70) Status: Active Chronic GERD (530.81, K21.9) Status: Active Chronic obstructive pulmonary disease (496, J44.9) Status: Active Lower back pain (724.2, M54.5) Status: Active Neck pain (723.1, M54.2) Status: Active Asthma (493.90, J45.909) Status: Active Depression (311, F32.9) Status: Active Hypertension (401.9, I10) Status: Active Pain in thoracic spine (724.1, M54.6) Status: Active Pain, hip (719.45, M25.559) Status: Active Medications Name Dates Details Mirtazapine 30 MG Oral Tablet TAKE 1 TABLET AT BEDTIME. Refills: 0 Gino Saunders M.D. Start 03-Jan-2012 Active LORazepam 0.5 MG Oral Tablet What tablet at 8 a.m. and at 2 PM and 7 PM. Quantity: 90 Refills: 2 Gino Saunders M.D. Start 01-Jan-2013 Active Multiple Vitamins Oral Tablet TAKE 1 TABLET DAILY. Refills: 0 Prabhu Bill M.D. Start 01-Jan-2013 Active Furosemide 40 MG [...] Start 26-Apr-2016 Active 238 GM Bottle Nystatin 709854 UNIT/ML Mouth/Throat Suspension Swish and swallow 10 ml TID X 14 days. Quantity: 1 Refills: 1 Draio Grewal M.D. Start 05-Jul-2016 Active 473 ML Bottle CeleXA 20 MG Oral Tablet TAKE 1 TABLET DAILY. Refills: 0 Gino Saunders M.D. Start 15-Jan-2016 Active Aspir-Low 81 MG Oral Tablet Delayed Release TAKE 1 TABLET DAILY. Quantity: 31 Refills: 11 Gino Saunders M.D. Start 26-Aug-2016 Active Breo Ellipta 100-25 MCG/INH Inhalation Aerosol [...] TAKE 1 CAPSULE AT BEDTIME. Refills: 0 Gino Saunders M.D. Start 26-Oct-2016 Active Vitamin D-3 1000 UNIT Oral Capsule TAKE 4 CAPSULES DAILY. Quantity: 360 Refills: 2 Stokes M.Gino Kraft Start 15-Jan-2016 Active Escitalopram Oxalate 20 MG Oral Tablet TAKE 1 AND 1/2 TABLETS DAILY. Quantity: 4 Refills: 0 Stokes M.Gino Kraft Start 14-Dec-2016 Active Ondansetron HCl - 4 MG Oral Tablet take 1 po Q am PRN Quantity: 30 Refills: 2 Stokes M.DGino Guerrero Start 15-Jan-2016 Active FentaNYL 75 MCG/HR Transdermal Patch 72 Hour APPLY 1 PATCH EVERY 3 DAYS Quantity: 10 Refills: 0 Stokes M.Gino Kraft Start 01-Jan-2013 Active Endocet 7.5-325 MG Oral Tablet 1 tablet every 6 hours Quantity: 120 Refills: 0 Nicky MParviz, Gino Start 15-Apr-2016 Active Allergies and Adverse Reactions [...] Lot #: [id number] Influenza Comments: 06/25/08 @ [place] Family History Unknown Family Member Name Dates [...] smoker Vital Signs Date Test Result Details 11:11 BP Systolic 128 mm[Hg] Status: Comments: Location: ; Position: BP Diastolic 78 mm[Hg] Status: Comments: Location: ; Position: Temperature 97.5 f Status: Comments: Method: Heart Rate 84 /min Status: Comments: Location: ; Weight 146 lb Status: Physical Findings 94 Status: Comments: O2 Saturation Body Mass Index Calculated 25.86 kg/m2 Status: Body Surface Area Calculated 1.69 m2 Status: Results Date Description Value Details Results not documented Plan of Care Name Dates Details Planned Observations Planned Goals not documented Planned Encounters Appointment; Provider: Gino Saunders M.D. On 11:00 Interventions Provided Medication ChangesEndocet 7.5-325 MG Oral Tablet - RenewFentaNYL 75 MCG/HR Transdermal Patch 72 Hour - Renew Instructions Name Dates Details Instructions not documented Encounters Appointment; Gino Saunders M.D. On 13-Jan-2017 Encounter Diagnosis: Problem not documented 11:00 Appointment; Dario Grewal M.D. On 10-Jan-2017 Encounter Diagnosis: Problem not documented 14:00 Appointment; Gino Saunders M.D. On 14-Dec-2016 Encounter Diagnosis: Problem not documented 11:00 Appointment; Gino Saunders M.D. On 15-Nov-2016 Encounter Diagnosis: Problem not documented 11:00 Appointment; Gino Saunders M.D. On 19-Oct-2016 Encounter [...] Encounter Diagnosis: Problem not documented 11:00 Appointment; iGno Saunders M.D. On 23-May-2016 Encounter Diagnosis: Problem [...]
--- OUTSIDE RECORDS SUMMARY | 2018-01-26 15:43 | External Medical Summary | Summary of Care ---
:1945 Author Name Gino Saunders M.D. Address [address], [place] [id number] Care Team Providers Name Role Phone Gino Saunders M.D. Unavailable Unavailable Prabhu Bill M.D. Unavailable Unavailable Gino Saunders Primary Care Provider Unavailable Unavailable Unavailable Unavailable Functional Status Functional Status Health Issues Name Dates Details Functional status health issues are not documented Status: Cognitive Status Health Issues Name Dates Details Cognitive status health issues are not documented Status: Problems Name Dates Details Anemia in chronic kidney disease (CKD) (285.21, N18.9) Status: Active Hypothyroidism (244.9, E03.9) Status: Active Asthma (493.90, J45.909) Status: Active Chronic renal insufficiency (585.9, N18.9) Status: Active Hypercholesterolemia (272.0, E78.0) Status: Active Macular hole (362.54, H35.349) Status: Active Nonexudative macular degeneration (362.51, H35.31) Status: Active Depression (311, F32.9) Status: Active Neck pain (723.1, M54.2) Status: Active Osteoporosis (733.00, M81.0) Status: Active Osteoarthritis (715.90, M19.90) Status: Active Anxiety (300.00, F41.9) Status: Active GERD (gastroesophageal reflux disease) (530.81, K21.9) Status: Active Vitamin d deficiency (268.9, E55.9) Status: Active CHF (congestive heart failure) (428.0, I50.9) Status: Active Chronic obstructive pulmonary disease (496, [...] 6 hours PRN pain Refills: 0 Prabhu Bill M.D. Started 01-Jan-2013 ActiveAtivan 0.5 MG Oral [...] Lot #: [id number] Influenza Comments: 06/25/08 @ [place] Family History Mother Name Dates Details Family history of Alcoholism Status: Active Father Name Dates Details Family history of Heart Disease (V17.49) Status: Active Brother Name Dates Details Family history of Heart Disease (V17.49) Status: Active Family history of Heart Disease (V17.49) Status: Active Social History Name Dates Details Smoking StatusFormer smoker Vital Signs Date Test Result Details 15:27 BP Systolic 112 mm[Hg] Status: BP Diastolic 68 mm[Hg] Status: Temperature 97.8 f Status: Heart Rate 83 /min Status: Weight 149 lb Status: O2 SAT 94 % Status: Body Mass Index Calculated 26.39 kg/m2 Status: Body Surface Area Calculated 1.71 m2 Status: Results Date Description Value Details 25-Jan-2016 13:22 BASIC METABOLIC PROFILE 1210 BUN 16 (Better) CREATININE, SERUM 0.99 (Better) Plan of Care Planned Observations Name Dates Details Planned Goals not documented Goal Planned Encounters Appointment; Provider: Sean Ballesteros On 10:15 Appointment; Provider: Cathleen Acevedo On 20-Jul-2011 09:30 [...] not documented Encounters Appointment; Gino Saunders On Encounter Diagnosis: Problem not documented 15:30 Appointment; Gino Saunders On 18-Jan-2016 Encounter Diagnosis: [...]
--- OUTSIDE RECORDS SUMMARY | 2018-01-26 15:43 | External Medical Summary | Summary of Care ---
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 (V58.69, Z79.899) Status: Active Chronic obstructive pulmonary disease (496, J44.9) Status: Active Hypothyroidism (244.9, E03.9) Status: Active Lichen planus (697.0, L43.9) Status: Active Anemia (285.9, D64.9) Status: Active Hypercholesterolemia (272.0, E78.00) Status: Active Lower back pain (724.2, M54.5) Status: Active Pain, hip (719.45, M25.559) Status: Active Anxiety (300.00, F41.9) Status: Active Asthma (493.90, J45.909) Status: Active Ataxic gait (781.2, R26.0) Status: Active Chronic GERD (530.81, K21.9) Status: Active Constipation (564.00, K59.00) Status: Active Hypertension (401.9, I10) Status: Active Neck pain (723.1, M54.2) Status: Active Pain in thoracic spine (724.1, M54.6) Status: Active Depression (311, F32.9) Status: Active Medications Name Dates Details Multiple [...] Refills: 0 Gino Saunders M.D. 15-Jan-2016 Active Senokot 8.6 MG Oral Tablet [...] Start 26-Apr-2016 Active 238 GM Bottle Nystatin 752902 UNIT/ML Mouth/Throat Suspension Swish and swallow 10 [...] TAKE 1 CAPSULE AT BEDTIME. Refills: 0 Widen M.D., Gino Start 26-Oct-2016 Active Vitamin D-3 1000 UNIT Oral Capsule TAKE 4 CAPSULES DAILY. Quantity: 360 Refills: 2 Widen M.D., Gino Start 15-Jan-2016 Active Escitalopram Oxalate 20 MG Oral Tablet TAKE 1 AND 1/2 TABLETS DAILY. Quantity: 4 Refills: 0 Widen M.D., Gino Start 14-Dec-2016 Active FentaNYL 75 MCG/HR Transdermal Patch 72 Hour APPLY 1 PATCH EVERY 3 DAYS Quantity: 10 Refills: 0 Nicky M.D., Gnio Start 01-Jan-2013 Active Endocet 7.5-325 MG Oral Tablet 1 tablet every 6 hours Quantity: 120 Refills: 0 Widen M.D., Gino Start 15-Apr-2016 Active Allergies and Adverse [...] Lot #: [id number] Influenza Comments: 06/25/08 @ [place] Family History Unknown Family Member Name Dates [...] smoker Vital Signs Date Test Result Details 14-Dec-2016 11:18 BP Systolic 130 mm[Hg] Status: Comments: Location: ; Position: BP Diastolic 70 mm[Hg] Status: Comments: Location: ; Position: Temperature 97.7 f Status: Comments: Method: Heart Rate 81 /min Status: Comments: Location: ; Weight 143 lb Status: Physical Findings 97 Status: Comments: O2 Saturation Body Mass Index Calculated 25.33 kg/m2 Status: Body Surface Area Calculated 1.68 m2 Status: 15-Nov-2016 11:00 BP Systolic 118 mm[Hg] Status: Comments: Location: RUE; Position: Sitting BP Diastolic 64 mm[Hg] Status: Comments: Location: RUE; Position: Sitting Temperature 98.6 f Status: Comments: Method: Tympanic Heart Rate 97 /min Status: Comments: Location: ; Weight 143 lb Status: Physical Findings 98 Status: Comments: O2 Saturation Body Mass Index Calculated 25.33 kg/m2 Status: Body Surface Area Calculated 1.68 m2 Status: Results Date Description Value Details Results not documented Plan of Care Name Dates Details Planned Observations Planned Goals not documented Planned Encounters Appointment; Provider: Gino Saunders M.D. On 13-Jan-2017 11:00 Appointment; Provider: Dario Grewal M.D. On 10-Jan-2017 14:00 Interventions Provided Medication ChangesEndocet 7.5-325 MG Oral Tablet - RenewEscitalopram Oxalate 20 MG Oral Tablet - StartFentaNYL 75 MCG/HR Transdermal Patch 72 Hour - Renew Instructions Name Dates Details Instructions not documented Encounters Appointment; Gino Saunders M.D. On 15-Nov-2016 Encounter [...]
--- OUTSIDE RECORDS SUMMARY | 2018-01-26 15:43 | External Medical Summary | Summary of Care ---
:1945 Author Name Nicky Whitman, Gino Address Unavailable Unavailable , Care Team Providers Name Role Phone Nicky Whitman, Darvin Unavailable Unavailable Nicky Whitman, Gino Unavailable Unavailable Favian Whitman, Sean Parekh Unavailable Unavailable Landy Whitman, Prabhu Stewart Unavailable Unavailable Gino Saunders Primary Care Provider [...] Nonexudative macular degeneration (362.51, H35.31) Status: Active Osteoarthritis (715.90, M19.90) Status: Active Anxiety (300.00, F41.9) Status: Active GERD (gastroesophageal reflux disease) (530.81, K21.9) Status: Active Vitamin d deficiency (268.9, E55.9) Status: Active CHF (congestive heart failure) (428.0, I50.9) Status: Active Bursitis, hip (726.5, M70.70) Status: Active Chronic obstructive pulmonary disease (496, J44.9) Status: Active Hip pain (719.45, M25.559) Status: Active Stomatitis (528.00, K12.1) Status: Active Depression (311, F32.9) Status: Active Hypertension (401.9, I10) Status: Active Lower back pain (724.2, M54.5) Status: Active Neck pain (723.1, M54.2) Status: Active Osteoporosis (733.00, M81.0) Status: Active Pain in thoracic spine (724.1, M54.6) Status: Active Medications Name Dates Details Multiple [...] Refills: 0 Gino Saunders M.D. Started 15-Jan-2016 ActiveOxycodone-Acetaminophen 10-325 MG Oral Tablet TAKE 1 TABLET Every 6 hours PRN pain Quantity: 120 Refills: 0 Darvin Saunders M.D. Started 01-Jan-2013 Active[place]'s Mouth Rinse 2 tsp swish and spit TID Refills: 0 Sean Ballesteros M.D. Started ActiveTerbinafine HCl - 250 MG Oral Tablet 1 po for 14 days Quantity: 14 Refills: 0 Sean Ballesteros M.D. Started ActiveFentaNYL 75 MCG/HR Transdermal Patch 72 Hour APPLY 1 PATCH EVERY 3 DAYS Quantity: 10 Refills: 0 Gino Saunders M.D. Started 01-Jan-2013 Active Allergies and Adverse Reactions Name [...] Influenza Comments: 06/25/08 @ [place] Family History Mother Name Dates Details Family history of Alcoholism Status: Active Father Name Dates Details Family history of Heart Disease (V17.49) Status: Active Brother Name Dates Details Family history of Heart Disease (V17.49) Status: Active Family history of Heart Disease (V17.49) Status: Active Social History Name Dates Details Smoking StatusFormer smoker Vital Signs Date Test Result Details 13:33 BP Systolic 112 mm[Hg] Status: BP Diastolic 60 mm[Hg] Status: Temperature 97.6 f Status: Heart Rate 84 /min Status: Weight 142 lb Status: O2 SAT 96 % Status: Body Mass Index Calculated 25.15 kg/m2 Status: Body Surface Area Calculated 1.67 m2 Status: 10:42 Heart Rate 80 /min Status: Weight 141 lb Status: Body Mass Index Calculated 24.98 kg/m2 Status: Body Surface Area Calculated 1.67 m2 Status: 10:38 Heart Rate 80 /min Status: Weight 141 lb Status: Body Mass Index Calculated 24.98 kg/m2 Status: Body Surface Area Calculated 1.67 m2 Status: Results Date Description Value Details 13:27 BASIC METABOLIC PROFILE 1210 SODIUM 142 (Better) POTASSIUM 4.5 (Better) BUN 15 (Better) CREATININE, SERUM 1.05 (Better) GLUCOSE 38 (Better) 13:29 THYROID STIM. HORMONE 3602 THYROID STIM. HORMONE 2.32 (Better) Plan of Care Planned Observations Name Dates Details Planned Goals not documented Goal Planned Encounters Appointment; Provider: Darvin Saunders On 20-Apr-2016 10:45 Appointment; Provider: Sean Ballesteros On 11-Apr-2016 09:30 Appointment; Provider: Cathleen Acevedo On 20-Jul-2011 09:30 [...] Saunders On Encounter Diagnosis: Problem not documented 13:30 Appointment; Sean Ballesteros On Encounter Diagnosis: Problem not documented 08:30 Appointment; Sean Ballesteros On Encounter Diagnosis: Problem not documented 10:15 Appointment; Gino Saunders On Encounter Diagnosis: Problem [...]
--- OUTSIDE RECORDS SUMMARY | 2018-01-26 15:44 | External Medical Summary | Summary of Care ---
[...] planus (697.0, L43.9) Status: Active Encounter for residential current use of dapsone (V58.69, Z79.899) Status: [...] Start 26-Apr-2016 Active 238 GM Bottle Nystatin 127978 UNIT/ML Mouth/Throat Suspension Swish and swallow 10 [...] 2 Gino Saunders M.D. Start 15-Jan-2016 Active Dapsone 25 MG Oral Tablet Take 2 tablets daily Quantity: 60 Refills: 0 Alejandro Grewal M.D.eed Start 26-Aug-2016 Active Aspir-Low 81 MG Oral Tablet Delayed Release TAKE 1 TABLET DAILY. Quantity: 31 Refills: 11 Nicky Whitman Gino Start 26-Aug-2016 Active Endocet 7.5-325 MG Oral Tablet TAKE 1 TABLET EVERY 6 HOURS NEEDED FOR PAIN. Quantity: 120 Refills: 0 Nicky Whitman Gino Start 15-Apr-2016 Active FentaNYL 75 MCG/HR Transdermal Patch 72 Hour APPLY 1 PATCH EVERY 3 DAYS Quantity: 10 Refills: 0 Nicky Whitman Gino Start 01-Jan-2013 Active LORazepam 0.5 MG Oral Tablet What tablet at 8 a.m. and at 2 PM and 7 PM. Quantity: 90 Refills: 2 Nicky Whitman, Gino Start 01-Jan-2013 Active Allergies and Adverse Reactions [...] of Cholecystectomy Comprehensive Metabolic Panel 1212 Ordered: 20-Sep-2016 ERYTHROCYTE SED RATE 7800 Ordered: 20-Sep-2016 CBC w/ Auto Diff 7150 Ordered: 20-Sep-2016 Immunization Name Dates Details Pneumo (Pneumovax) on: 22-May-2006 Influenza on: 15-Jun-2007 Fluzone INJ on: 19-May-2009 Influenza A (H1N1) Monoval Vac SUSP on: 31-Jul-2009 Influenza on: 26-May-2010 Pneumovax 23 25 MCG/0.5ML Injection Injectable on: Lot #: [id number] Influenza Comments: 06/25/08 @ [place] Family History Unknown Family Member Name Dates [...] Body Surface Area Calculated 1.7 m2 Status: 24-Aug-2016 14:54 BP Systolic 108 mm[Hg] Status: BP Diastolic 60 mm[Hg] Status: Weight 148 lb Status: Body Mass Index Calculated 26.22 kg/m2 Status: Body Surface Area Calculated 1.7 m2 Status: Results Date Description Value Details Results not documented Plan of Care Name Dates Details Planned Observations Planned Goals not documented Planned Encounters Appointment; Provider: Sean Ballesteros M.D. On 23-Nov-2016 11:00 Appointment; Provider: Gino Saunders M.D. On 20-Oct-2016 14:00 Appointment; Provider: Dario Grewal M.D. On 17-Oct-2016 16:30 Interventions Provided Medication ChangesEndocet 7.5-325 MG Oral Tablet - Renew with ChangesFentaNYL 75 MCG/HR Transdermal Patch 72 Hour - RenewLORazepam 0.5 MG Oral Tablet - Renew with Changes Instructions Name Dates Details Instructions not documented Encounters Appointment; Dario Grewal M.D. On 24-Aug-2016 Encounter [...]
--- OUTSIDE RECORDS SUMMARY | 2018-01-26 15:44 | External Medical Summary | Summary of Care ---
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, L60.3) Status: Active Encounter for custodial current use of dapsone (V58.69, Z79.899) Status: Active Hypothyroidism (244.9, E03.9) Status: Active Lichen planus (697.0, L43.9) Status: Active Anemia (285.9, D64.9) Status: Active Hypercholesterolemia (272.0, E78.00) Status: Active Pain, hip (719.45, M25.559) Status: Active Anxiety (300.00, F41.9) Status: Active Asthma (493.90, J45.909) Status: Active Constipation (564.00, K59.00) Status: Active Hypertension (401.9, I10) Status: Active Ataxic gait (781.2, R26.0) Status: [...] Start 26-Apr-2016 Active 238 GM Bottle Nystatin 309595 UNIT/ML Mouth/Throat Suspension Swish and swallow 10 [...] 4 CAPSULES DAILY. Quantity: 360 Refills: 2 Superior M.Gino Kraft Start 15-Jan-2016 Active Escitalopram Oxalate 20 MG Oral Tablet TAKE 1 AND 1/2 TABLETS DAILY. Quantity: 4 Refills: 0 Gino Saunders M.D. Start 14-Dec-2016 Active Ondansetron HCl - 4 MG Oral Tablet take 1 po Q am PRN Quantity: 30 Refills: 2 Superior MGino Jj Start 15-Jan-2016 Active Endocet 7.5-325 MG Oral Tablet 1 tablet every 6 hours Quantity: 120 Refills: 0 Nicky MParviz, Gino Start 15-Apr-2016 Active FentaNYL 75 MCG/HR Transdermal Patch 72 Hour APPLY 1 PATCH EVERY 3 DAYS Quantity: 10 Refills: 0 Nicky Whitman, Gino Start 01-Jan-2013 Active Allergies [...] smoker Vital Signs Date Test Result Details 13-Jan-2017 11:08 BP Systolic 126 mm[Hg] Status: Comments: Location: RUE; Position: Sitting BP Diastolic 76 mm[Hg] Status: Comments: Location: RUE; Position: Sitting Temperature 97.7 f Status: Comments: Method: Tympanic Heart Rate 92 /min Status: Comments: Location: ; Weight 145 lb Status: Physical Findings 95 Status: Comments: O2 Saturation Body Mass Index Calculated 25.69 kg/m2 Status: Body Surface Area Calculated 1.69 [...] documented Encounters Appointment; Dario Grewal M.D. On 10-Jan-2017 Encounter [...]
--- OUTSIDE RECORDS SUMMARY | 2018-01-26 15:44 | External Medical Summary | Summary of Care ---
:1945 Author Name Favian Whitman, Sean Parekh Address Unavailable Unavailable , Care Team Providers Name Role Phone Nicky Whitman, Gino Sorenson M.D. Unavailable Unavailable Favian Whitman, Sean Parekh Unavailable [...] Active Hip pain (719.45, M25.559) Status: Active Depression (311, F32.9) Status: Active Hypertension (401.9, I10) Status: Active Lower back pain (724.2, M54.5) Status: Active Neck pain (723.1, M54.2) Status: Active Osteoporosis (733.00, M81.0) Status: Active Pain in thoracic spine (724.1, M54.6) Status: Active Stomatitis (528.00, K12.1) Status: Active Medications Name Dates Details Multiple [...] Refills: 0 Darvin Saunders M.D. Started 01-Jan-2013 Active[place]ongford's Mouth Rinse 2 tsp swish and spit [...] Lot #: [id number] Influenza Comments: 06/25/08 @ [place] Family History Mother Name Dates Details Family [...] not documented Goal Planned Encounters Appointment; Provider: Gino Saunders On 20-Apr-2016 10:45 Appointment; Provider: Sean [...] Barillas On 24-Oct-2008 18:30 Appointment; Provider: Cathleen Aceevdo On 20-Jun-2008 11:45 Instructions Instructions not documented [...]
--- OUTSIDE RECORDS SUMMARY | 2018-01-26 15:44 | External Medical Summary | Summary of Care ---
:1945 Author Name Sean Ballesteros M.D. Address [address] [place], [place] [id number] Care Team Providers Name Role Phone Nicky Whitman, Gino Sorenson M.D. Unavailable Unavailable Sean Ballesteros M.D. Unavailable Unavailable Landy hWitman, Prabhu Stewart Unavailable Unavailable Gino Saunders Primary [...] (congestive heart failure) (428.0, I50.9) Status: Active Pain in thoracic spine (724.1, M54.6) Status: Active Bursitis, hip (726.5, M70.70) Status: Active Chronic obstructive pulmonary disease (496, J44.9) Status: Active Hip pain (719.45, M25.559) Status: Active Hypertension (401.9, I10) Status: Active Lower back pain (724.2, M54.5) Status: Active Stomatitis (528.00, K12.1) Status: Active [...] Refills: 0 Gino Saunders M.D. Started 15-Jan-2016 ActiveFentaNYL 75 MCG/HR Transdermal Patch 72 Hour APPLY 1 PATCH EVERY 3 DAYS Refills: 0 Prabhu Bill M.D. Started 01-Jan-2013 ActiveOxycodone-Acetaminophen 10-325 MG Oral Tablet TAKE 1 TABLET Every 6 hours PRN pain Quantity: 120 Refills: 0 Darvin Saunders M.D. Started 01-Jan-2013 ActiveTerbinafine HCl - 250 MG Oral Tablet 1 po for 14 days Quantity: 14 Refills: 0 Sean Ballesteros M.D. Started ActiveStanford's Mouth Rinse 2 tsp swish and spit TID Refills: 0 Sean Ballesteros M.D. Started Active Allergies and Adverse Reactions Name Dates [...] Lot #: [id number] Influenza Comments: 06/25/08 @ [place] Family History Mother Name Dates Details Family history of Alcoholism Status: Active Father Name Dates Details Family history of Heart Disease (V17.49) Status: Active Brother Name Dates Details Family history of Heart Disease (V17.49) Status: Active Family history of Heart Disease (V17.49) Status: Active Social History Name Dates Details Smoking StatusFormer smoker Vital Signs Date Test Result Details 10:42 Heart Rate 80 /min Status: Weight 141 lb Status: Body Mass Index Calculated 24.98 kg/m2 Status: Body Surface Area Calculated 1.67 m2 Status: 10:38 Heart Rate 80 /min Status: Weight 141 lb Status: Body Mass Index Calculated 24.98 kg/m2 Status: Body Surface Area Calculated 1.67 m2 Status: 15:27 BP Systolic 112 mm[Hg] Status: BP [...] Planned Encounters Appointment; Provider: Gino Saunders On 13:30 Appointment; Provider: Sean Ballesteros On 08:30 Appointment; Provider: Cathleen Acevedo On 20-Jul-2011 09:30 [...] 11:45 Instructions Instructions not documented Encounters Appointment; Sean Ballesteros On Encounter Diagnosis: Problem [...]
--- OUTSIDE RECORDS SUMMARY | 2018-01-26 15:44 | External Medical Summary | Summary of Care ---
[...] hip (726.5, M70.70) Status: Active Encounter for manager terminal current use of dapsone (V58.69, Z79.899) Status: [...] Start 26-Apr-2016 Active 238 GM Bottle Nystatin 970163 UNIT/ML Mouth/Throat Suspension Swish and swallow 10 [...] 4 CAPSULES DAILY. Quantity: 360 Refills: 2 Lincoln M.Swapnil Gino Start 15-Jan-2016 Active Escitalopram Oxalate 20 MG Oral Tablet TAKE 1 AND 1/2 TABLETS DAILY. Quantity: 4 Refills: 0 Gino Saunders M.D. Start 14-Dec-2016 Active FentaNYL 75 MCG/HR Transdermal Patch 72 Hour APPLY 1 PATCH EVERY 3 DAYS Quantity: 10 Refills: 0 Gino Saunders M.D. Start 01-Jan-2013 Active Endocet 7.5-325 MG Oral Tablet 1 tablet every 6 hours Quantity: 120 Refills: 0 Gino Saunders M.D. Start 15-Apr-2016 Active Ondansetron HCl - 4 MG Oral Tablet take 1 po Q am PRN Quantity: 30 Refills: 2 Nicky Whitman, Gino Start 15-Jan-2016 Active Allergies and Adverse Reactions [...] Lot #: [id number] Influenza Comments: 06/25/08 @ [place] Family History Unknown Family Member Name Dates [...] BP Systolic 130 mm[Hg] Status: Comments: Location: RUE; Position: Sitting BP Diastolic 70 mm[Hg] Status: Comments: Location: RUE; Position: Sitting Temperature 97.7 f Status: Comments: Method: Tympanic Heart Rate 81 /min Status: Comments: Location: [...] M.D. On 10-Jan-2017 14:00 Interventions Provided Medication ChangesOndansetron HCl - 4 MG Oral Tablet - Renew Instructions Name Dates Details Instructions not documented Encounters Appointment; Gino Saunders M.D. On 14-Dec-2016 Encounter [...] Encounter Diagnosis: Problem not documented 15:30 Appointment; iGno Saunders M.D. On 17-Aug-2016 Encounter Diagnosis: Problem [...]
--- OUTSIDE RECORDS SUMMARY | 2018-01-26 15:44 | External Medical Summary ---
:1945 Author Name GENERATED, SYSTEM Care Team Providers Name Role Phone MD GRIFFITH BRIAN Primary Care Provider [phone] Reason For Visit Chief Complaint 08/07/17 DYSPHAGIA Social History Functional Status Vital Signs Results DX Radiology from 08/18/2017 11:30 AMSwallowing Function w/VideoHistory: Dysphagia. Nausea Technique: 2.2 minutes of fluoroscopy time and a single spot film were obtained Priors: None. Findings: The patient was able to form and transfer a bolus without difficulty. There is normal laryngeal elevation, pharyngeal peristalsis and epiglottic tilt. No significant residuals identified in the vallecular or piriform sinuses.No aspiration or penetration is identified. Impression: Unremarkable swallow motion Electronically signed by: Michael Emerson MD Dictated: 08/18/2017 11:50 (Reference Range: not available) Problems Encounter Diagnosis No relevant problems exist. Additional Problems Acute Exacerbation of Chronic Obstructive Airways Disease Comment:Problem resolved by [facility] Work[facility] upon Discharge, Status:Resolved.Altered Mental Status Comment:Problem resolved by [facility] Work[facility] upon Discharge, Status: Resolved.Closed Fracture of Neck of Femur Comment:Problem resolved by [facility] Work[facility] upon Discharge, Status:Resolved.Hypokalemia Comment:Problem resolved by [facility] Work[facility] upon Discharge, Status:Resolved.Muscle Weakness Comment: Problem resolved by [facility] Work[facility] upon Discharge, Status:Resolved. Encounters Encounter Diagnosis No relevant problems exist. Plan of Care Procedures Completed right hip hemiarthroplasty, Right, by MD LINDA DON, on 07/27/2014 3: 52 PMCompleted Procedure Code: 81.52 Procedure Name: not valued, on 07/27/2014 12:00 AMCompleted Procedure Code: 79.35 Procedure Name: not valued, on 2013 12:00 AMCompleted , on 05/26/2012 12:00 AMCompleted , on 05/26/2012 12:00 AMCompleted , on 05/25/2012 12:00 AMCompleted , on 12/22/2011 12:00 AMCompleted , on 04/11/2010 12:00 AMCompleted , on 12/02/2008 12:00 AMCompleted , on 12/02/2008 12 :00 AM Immunizations No immunizations administered or ordered. Hospital Course Hospital Discharge Instructions Allergies, Adverse Reactions, Alerts This section is sales account representative of the current allergy information, at the time of the CCD generation. In the case of regeneration of the CCD, the allergy information may not reflect the state of known allergies at the time of the CCD' s subject visit. Iron causes Mild Nausea.Erythrocin causes Nausea/Vomiting.No Latex Allergy.No IV Contrast Allergy.No Known Food Allergies. Medication Medication reconciliation has not been performed.
--- OUTSIDE RECORDS SUMMARY | 2018-01-26 15:45 | External Medical Summary | Summary of Care ---
[...] CAPSULE ONCE DAILY. Quantity: 1 Refills: 6 Furnas MBlanca., Gino Start 11-Apr-2016 Active 30 Capsule Box Albuterol [...] Start 26-Apr-2016 Active 238 GM Bottle Nystatin 088416 UNIT/ML Mouth/Throat Suspension Swish and swallow 10 [...] EVERY 3 DAYS Quantity: 10 Refills: 0 Furnas Nayan.Gino Kraft Start 01-Jan-2013 Active LORazepam 0.5 MG Oral Tablet TAKE 1 TABLET BID Quantity: 62 Refills: 2 Nicky MGino Jj Start 01-Jan-2013 Active Oxycodone-Acetaminophen 10-325 MG Oral Tablet Take 1 po QID. Quantity: 124 Refills: 0 Furnas MGino Jj Start 15-Apr-2016 Active Allergies and Adverse Reactions [...] Lot #: [id number] Influenza Comments: 06/25/08 @ [place] Family History Unknown Family Member Name Dates [...] smoker Vital Signs Date Test Result Details 24-Aug-2016 14:54 BP Systolic 108 mm[Hg] Status: Comments: Location: ; Position: BP Diastolic 60 mm[Hg] Status: Comments: Location: ; Position: Weight 148 lb Status: Body Mass Index Calculated 26.22 kg/m2 Status: Body Surface Area Calculated 1.7 m2 Status: 17-Aug-2016 15:14 BP Systolic 120 mm[Hg] Status: Comments: Location: ; Position: BP Diastolic 66 mm[Hg] Status: Comments: Location: ; Position: Temperature 97.9 f Status: Heart Rate 94 /min Status: Weight 146 lb Status: Physical Findings 98 [...] Provider: Gino Saunders M.D. On 20-Sep-2016 11:00 Instructions Name Dates Details Instructions not documented Encounters Appointment; Gino Saunders M.D. On 17-Aug-2016 Encounter Diagnosis: Problem not documented 15:00 Appointment; Dario Grewal M.D. On 01-Aug-2016 Encounter Diagnosis: Problem not documented 13:15 Appointment; Dario Grewal M.D. On 05-Jul-2016 Encounter Diagnosis: Problem not documented 14:00 Appointment; Cindy Chavira P.A. On 05-Jul-2016 Encounter Diagnosis: Problem not documented 13:00 Appointment; Gino Suanders M.D. On 04-Jul-2016 Encounter Diagnosis: Problem not [...]
--- OUTSIDE RECORDS SUMMARY | 2018-01-26 15:45 | External Medical Summary | Summary of Care ---
:1945 Author Name Gino Saunders M.D. Address [address], [place] [id number] Care Team Providers Name Role Phone Gino [...] Sean Ballesteros On 10:15 Appointment; Provider: Gino Saunders On 13:00 Appointment; Provider: Cathleen Acevedo On [...]
--- OUTSIDE RECORDS SUMMARY | 2018-01-26 15:45 | External Medical Summary | Summary of Care ---
[...] not documented Status: Problems Name Dates Details Hypothyroidism (244.9, E03.9) Status: Active Asthma (493.90, J45.909) Status: Active Hypercholesterolemia (272.0, E78.0) Status: Active Macular hole (362.54, H35.349) Status: Active Nonexudative macular degeneration (362.51, H35.31) Status: Active Osteoarthritis (715.90, M19.90) Status: Active Anxiety (300.00, F41.9) Status: Active GERD (gastroesophageal reflux disease) (530.81, K21.9) Status: Active Vitamin D deficiency (268.9, E55.9) Status: Active CHF (congestive [...] TAKE 1 TABLET DAILY. Refills: 0 Landy Whitman, Prabhu Terry Start 01-Jan-2013 Active Ativan 0.5 MG Oral Tablet TAKE 1/2 TAB Q 6 HRS PRN Refills: 0 Nicky Whitman, Gino Start 01-Jan-2013 Active Mirtazapine 30 MG Oral Tablet TAKE 1 TABLET AT BEDTIME. Refills: 0 Nicky Whitman, Gino Start 03-Jan-2012 Active Reglan 10 MG Oral Tablet TAKE 1 TABLET TWICE DAILY. Refills: 0 Nicky Whitman, Gino Start 01-Jan-2013 Active Amitriptyline HCl - 10 MG Oral Tablet TAKE 1 TABLET AT BEDTIME. Refills: 0 Nicky Whitman, Gino Start 15-Jan-2016 Active CeleXA 40 MG Oral Tablet TAKE 1 TABLET DAILY. Refills: 0 Nicky Whitman, Gino Start 15-Jan-2016 Active Fish Oil 1000 MG Oral Capsule TAKE 1 CAPSULE DAILY. Refills: 0 Nicky Whitman, Gino Start 15-Jan-2016 Active Furosemide 40 MG Oral Tablet Take 1 1/2 tabs daily Refills: 0 Nicky Whitman, Gino Start 15-Jan-2016 Active Lisinopril 10 MG Oral Tablet TAKE 1 TABLET DAILY. Refills: 0 Nicky Whitman, Gino Start 15-Jan-2016 Active Meloxicam 7.5 MG Oral Tablet TAKE 1 TABLET DAILY. Refills: 0 Gino Saunders M.D. Start 15-Jan-2016 Active Synthroid 100 MCG Oral Tablet TAKE 1 TABLET DAILY. Refills: 0 Gino Saunders M.D. Start 15-Jan-2016 Active Vitamin D-3 1000 UNIT Oral Capsule take 2 po daily Refills: 0 Nicky Whitman, Gino Start 15-Jan-2016 Active Zofran 4 MG Oral Tablet take 1 po Q am Refills: 0 Nicky Whitman, Gino Start 15-Jan-2016 Active Senokot 8.6 MG Oral Tablet take 1 po bid Refills: 0 Nicky Whitman, Gino Start 15-Jan-2016 Active Oxycodone-Acetaminophen 10-325 MG Oral Tablet TAKE 1 TABLET Every 6 hours PRN pain Quantity: 120 Refills: 0 Darvin Saunders M.D. Start 01-Jan-2013 Active [place]'s Mouth Rinse 2 tsp swish and spit TID Refills: 0 Favian Whitman Sean Izabella Start Active Terbinafine HCl - 250 MG Oral Tablet 1 po for 14 days Quantity: 14 Refills: 0 Sean Ballesteros M.D. Start Active FentaNYL 75 MCG/HR Transdermal Patch 72 Hour APPLY 1 PATCH EVERY 3 DAYS Quantity: 10 Refills: 0 Gino Saunders M.D. Start 01-Jan-2013 Active Spiriva HandiHaler 18 MCG Inhalation Capsule [...] M.D. Start 11-Apr-2016 Active 15.8 ML Bottle Allergies and Adverse Reactions Name Dates Details azithromycin (Allergy) Status: Active Erythromycin TABS (Allergy) Status: Active Iron TABS (Allergy) Status: Active Past Medical History Name Dates Details History of Anemia in chronic kidney disease [...] Lot #: [id number] Influenza Comments: 06/25/08 @ [place] Family History Mother Name Dates Details Family [...] Details 13:33 BP Systolic 112 mm[Hg] Status: Comments: Location: ; Position: BP Diastolic 60 mm[Hg] Status: Comments: Location: ; Position: Temperature 97.6 f Status: Comments: Method: Heart Rate 84 /min Status: Comments: Location: ; Weight 142 lb Status: Physical Findings 96 Status: Comments: O2 Saturation Body Mass Index Calculated 25.15 kg/m2 Status: Body Surface Area Calculated 1.67 m2 Status: Results Date Description Value Details Results not documented Plan of Care Name Dates Details Planned Observations Planned Goals not documented Planned Encounters Appointment; Provider: Sean Ballesteros M.D. On 18-May-2016 09:45 Appointment; Provider: Gino Saunders M.D. On 20-Apr-2016 10:45 Instructions Name Dates Details Instructions not documented Encounters Appointment; Sean Ballesteros M.D. On 11-Apr-2016 Encounter [...] Diagnosis: Problem not documented 11:15 Appointment; Reyes nEglish M.D. On 13-Aug-2014 Encounter Diagnosis: Problem not documented 11:15 Appointment; Petr Car D.O. On 15-Apr-2014 Encounter Diagnosis: Problem not documented 15:00
--- OUTSIDE RECORDS SUMMARY | 2018-01-26 15:45 | External Medical Summary | Summary of Care ---
[...] Status: Active Constipation (564.00, K59.00) Status: Active Lower back pain (724.2, M54.5) Status: Active Pain, hip (719.45, M25.559) Status: Active Lichen planus (697.0, L43.9) Status: Active Encounter for half-way current use of dapsone (V58.69, Z79.899) Status: Active Hypertension (401.9, I10) Status: Active Depression (311, F32.9) Status: Active Chronic obstructive pulmonary disease (496, J44.9) Status: Active Medications Name Dates Details Multiple [...] 0 Gino Saunders M.D. Start 15-Jan-2016 Active Steger's Mouth Rinse 2 tsp swish and spit [...] Start 26-Apr-2016 Active 238 GM Bottle Nystatin 072906 UNIT/ML Mouth/Throat Suspension Swish and swallow 10 [...] 1 TABLET BID Quantity: 62 Refills: 2 Gino Saunders M.D. Start 01-Jan-2013 Active Oxycodone-Acetaminophen 10-325 MG Oral Tablet Take 1 po QID. Quantity: 124 Refills: 0 Gnio Saunders M.D. Start 15-Apr-2016 Active Ondansetron HCl - 4 MG Oral Tablet take 1 po Q am PRN Quantity: 30 Refills: 2 Nicky Whitman Gino Start 15-Jan-2016 Active Dapsone 25 MG Oral Tablet Take 2 tablets daily Quantity: 60 Refills: 0 Dario Grewal M.D. Start 26-Aug-2016 Active Aspir-Low 81 MG Oral Tablet Delayed Release TAKE 1 TABLET DAILY. Quantity: 31 Refills: 11 Nicky Whitman Gino Start 26-Aug-2016 Active Allergies and Adverse Reactions Name Dates [...] 11:00 Appointment; Provider: Dario Grewal M.D. On 17-Oct-2016 16:30 Interventions Provided Labs/Procedures/ImagingCBC w/ Auto Diff 7150; To be Done: 20 Sep 2016Comprehensive Metabolic Panel 1212; To be Done: 20 Sep 2016ERYTHROCYTE SED RATE 7800; To be Done: 20 Sep 2016 Instructions Name Dates Details Instructions not documented [...] Diagnosis: Problem not documented 10:15 Appointment; Gino Suanders M.D. On Encounter Diagnosis: Problem not documented 15:30 Appointment; Gino Saunders M.D. On 18-Jan-2016 Encounter Diagnosis: Problem not documented 14:00 Appointment; Reyes English M.D. On 12-Jan-2015 Encounter Diagnosis: Problem not documented 10:45 Appointment; Reyes English M.D. On 13-Oct-2014 Encounter Diagnosis: Problem not documented 10:45
--- OUTSIDE RECORDS SUMMARY | 2018-01-26 15:45 | External Medical Summary | Summary of Care ---
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 Start 15-Jan-2016 Active Pavo's Mouth Rinse 2 tsp swish and spit TID Refills: 0 Sean Ballesteros M.D. Start Active Terbinafine HCl - 250 MG Oral Tablet 1 po for 14 days Quantity: 14 Refills: 0 Sean Ballesteros M.D. Start Active Albuterol Sulfate (2.5 MG/3ML) 0.083% Inhalation Nebulization Solution USE 1 UNIT DOSE EVERY 4-6 HOURS NEEDED FOR WHEEZING . Quantity: 1 Refills: 5 Nicky M.D., Gino Start 11-Apr-2016 Active 3 ML Plas Cont [...] Start 26-Apr-2016 Active 238 GM Bottle Nystatin 218242 UNIT/ML Mouth/Throat Suspension Swish and swallow 10 [...] 4 CAPSULES DAILY. Quantity: 360 Refills: 2 Gino Saunders M.D. Start 15-Jan-2016 Active Escitalopram Oxalate 20 MG Oral Tablet TAKE 1 AND 1/2 TABLETS DAILY. Quantity: 4 Refills: 0 Gino Saunders M.D. Start 14-Dec-2016 Active Ondansetron HCl - 4 MG Oral Tablet take 1 po Q am PRN Quantity: 30 Refills: 2 LexingtonGino jimenez M.D. Start 15-Jan-2016 Active FentaNYL 75 MCG/HR Transdermal Patch 72 Hour APPLY 1 PATCH EVERY 3 DAYS Quantity: 10 Refills: 0 Gino Saunders M.D. Start 01-Jan-2013 Active Endocet 7.5-325 MG Oral Tablet 1 tablet every 6 hours Quantity: 120 Refills: 0 Gino Saunders M.D. Start 15-Apr-2016 Active LORazepam 0.5 MG Oral Tablet What tablet at 8 a.m. and at 2 PM and 7 PM. Quantity: 90 Refills: 0 [place] MDarvin Jj Start 01-Jan-2013 Active Allergies and Adverse Reactions [...] Influenza Comments: 06/25/08 @ [place] Family History Unknown Family Member Name Dates [...] Saunders M.D. On 11:00 Interventions Provided Medication ChangesLORazepam 0.5 MG Oral Tablet - Renew Instructions Name Dates Details Instructions not documented Encounters Appointment; Gino Saunders M.D. On Encounter Diagnosis: Problem not documented 11:00 Appointment; Gino Saunders M.D. On 13-Jan-2017 Encounter [...]
--- OUTSIDE RECORDS SUMMARY | 2018-01-26 15:46 | External Medical Summary | Summary of Care ---
:1945 Author Name Favian Whitman, Sean Parekh Address Unavailable Unavailable , Care Team Providers Name Role Phone Nicky Whitman, Darvin Cardoza Unavailable Nicky Whitman, Gino Unavailable Unavailable Favian [...] 0 Prabhu Bill M.D. Start 01-Jan-2013 Active Ativan 0.5 MG Oral Tablet TAKE 1/2 TAB Q 6 HRS PRN Refills: 0 Gino Saunders M.D. Start 01-Jan-2013 Active Mirtazapine 30 MG Oral Tablet TAKE 1 TABLET AT BEDTIME. Refills: 0 Gino Saunders M.D. Start 03-Jan-2012 Active Reglan 10 MG Oral Tablet TAKE 1 TABLET TWICE DAILY. Refills: 0 Gino Saunders M.D. Start 01-Jan-2013 Active Amitriptyline HCl - 10 MG Oral Tablet TAKE 1 TABLET AT BEDTIME. Refills: 0 Gino Saunders M.D. Start 15-Jan-2016 Active CeleXA 40 MG Oral [...] 0 Gino Saunders M.D. Start 15-Jan-2016 Active Zofran 4 MG Oral Tablet take 1 po Q am Refills: 0 Nicky Whitman, Gino Start 15-Jan-2016 Active Senokot 8.6 MG Oral Tablet take 1 po bid Refills: 0 Gino Saunders M.D. Start 15-Jan-2016 Active Oxycodone-Acetaminophen 10-325 MG Oral Tablet TAKE 1 TABLET Every 6 hours PRN pain Quantity: 120 Refills: 0 Darvin Saunders M.D. Start 01-Jan-2013 Active [place]'s Mouth Rinse 2 tsp swish and spit TID Refills: 0 Sean Ballesteros M.D. Start Active Terbinafine HCl - 250 MG Oral Tablet 1 po for 14 days Quantity: 14 Refills: 0 Sean Ballesteros M.D. Start Active FentaNYL 75 MCG/HR Transdermal Patch 72 Hour APPLY 1 PATCH EVERY 3 DAYS Quantity: 10 Refills: 0 Gino Saunders M.D. Start 01-Jan-2013 Active Allergies and Adverse Reactions [...] Lot #: [id number] Influenza Comments: 06/25/08 @ [place] Family History Mother Name Dates Details Family [...]
--- OUTSIDE RECORDS SUMMARY | 2018-01-26 15:46 | External Medical Summary | Summary of Care ---
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 Refills: 0 Gino Saunders M.D. 03-Jan-2012 Active Furosemide 40 MG Oral Tablet Take 1 1/2 tabs daily Refills: 0 Gino Saunders M.D. Start 15-Jan-2016 Active Lisinopril 10 MG Oral Tablet TAKE 1 TABLET DAILY. Refills: 0 Gino Saunders M.D. 15-Jan-2016 Active Meloxicam 7.5 MG Oral Tablet TAKE 1 TABLET DAILY. Refills: 0 Gino Saunders M.D. 15-Jan-2016 Active Synthroid 100 MCG Oral Tablet TAKE 1 TABLET DAILY. Refills: 0 Gino Saunders M.D. 15-Jan-2016 Active Senokot 8.6 MG Oral Tablet take 1 po bid Refills: 0 Gino Saunders M.D. Start 15-Jan-2016 Active [place]'s Mouth Rinse 2 tsp swish and spit [...] Start 26-Apr-2016 Active 238 GM Bottle Nystatin 157213 UNIT/ML Mouth/Throat Suspension Swish and swallow 10 [...] 4 CAPSULES DAILY. Quantity: 360 Refills: 2 [place] M.Gino Kraft Start 15-Jan-2016 Active Escitalopram Oxalate 20 MG Oral Tablet TAKE 1 AND 1/2 TABLETS DAILY. Quantity: 4 Refills: 0 [place] M.Gino Kraft Start 14-Dec-2016 Active Ondansetron HCl - 4 MG Oral Tablet take 1 po Q am PRN Quantity: 30 Refills: 2 [place] M.DGino Guerrero Start 15-Jan-2016 Active FentaNYL 75 MCG/HR Transdermal Patch 72 Hour APPLY 1 PATCH EVERY 3 DAYS Quantity: 10 Refills: 0 [place] M.Gino Kraft Start 01-Jan-2013 Active Endocet 7.5-325 [...] Lot #: [id number] Influenza Comments: 06/25/08 @ [place] Family History Unknown Family Member Name Dates [...] ChangesEndocet 7.5-325 MG Oral Tablet - Renew Instructions Name Dates Details Instructions not documented Encounters Appointment; Gino Saunders M.D. On Encounter Diagnosis: Problem not documented 11:00 Appointment; Gino Suanders M.D. On 13-Jan-2017 Encounter Diagnosis: Problem not [...]
--- OUTSIDE RECORDS SUMMARY | 2018-01-26 15:46 | External Medical Summary | Summary of Care ---
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 Start 15-Jan-2016 Active [place] Mouth Rinse 2 tsp swish and spit [...] Start 26-Apr-2016 Active 238 GM Bottle Nystatin 758654 UNIT/ML Mouth/Throat Suspension Swish and swallow 10 [...] 0 Gino Saunders M.D. Start 14-Dec-2016 Active Endocet 7.5-325 MG Oral Tablet 1 tablet every 6 hours Quantity: 120 Refills: 0 Gino Saunders M.D. Start 15-Apr-2016 Active LORazepam 0.5 MG Oral Tablet What tablet at 8 a.m. and at 2 PM and 7 PM. Quantity: 90 Refills: 0 Darvin Saunders M.D. Start 01-Jan-2013 Active Ondansetron 4 MG Oral Tablet Disintegrating GIVE 1 TABLET PO Q AM FOR NAUSEA Quantity: 30 Refills: 6 Gino Saunders M.D. Start Active Ondansetron HCl - 4 MG Oral Tablet take 1 po Q am PRN Quantity: 30 Refills: 2 Gino Saunders M.D. Start 15-Jan-2016 Active FentaNYL [...] Lot #: [id number] Influenza Comments: 06/25/08 @ [place] Family History Unknown Family Member Name Dates [...] smoker Vital Signs Date Test Result Details No Known Vitals to report Results Date Description Value Details Results not documented Plan of Care Name Dates Details Planned Observations Planned Goals not documented Planned Encounters Appointment; Provider: Gino Saunders M.D. On 11:00 Interventions Provided Medication ChangesFentaNYL 75 MCG/HR Transdermal Patch 72 Hour - RenewOndansetron HCl - 4 MG Oral Tablet - [...]
--- OUTSIDE RECORDS SUMMARY | 2018-01-26 15:46 | External Medical Summary | Summary of Care ---
:1945 Author Name Nicky Whitman, Darvin Address [address], [place] [id number] Care Team Providers Name Role Phone Darvin Saunders M.D. Unavailable Gino Davis M.D. Unavailable Unavailable Landy Whitman, Prabhu Stewart Unavailable [...] M54.5) Status: Active Medications Name Dates Details Multiple [...] Refills: 0 Darvin Saunders M.D. Started 01-Jan-2013 Active Allergies and [...] Details Results not documented Plan of Care Planned Observations Name Dates Details Planned Goals not documented Goal Planned Encounters Appointment; Provider: Gino Saunders On 13:30 Appointment; Provider: Sean Ballesteros On 10:15 Appointment; [...]
--- OUTSIDE RECORDS SUMMARY | 2018-01-26 15:46 | External Medical Summary | Summary of Care ---
:1945 Author Name Gino Saunders M.D. Address [address], [place] [id number] Care Team Providers Name Role Phone Gino [...] Active Continuous Drug Dependence (304.91) Status: Active Pain in thoracic spine (724.1, M54.6) Status: Active Diarrhea (787.91, R19.7) Status: Active [...] kidney disease (CKD) (285.21, N18.9) Status: Active Lower back pain (724.2, M54.5) Status: Active Hypothyroidism (244.9, E03.9) Status: Active Asthma (493.90, J45.909) Status: Active Hypertension (401.9, I10) Status: Active Obesity (278.00, E66.9) Status: Active Hypocalcemia (275.41, E83.51) Status: Active Chronic obstructive pulmonary disease (496, J44.9) Status: Active Posterior capsular opacification, obscuring vision (366.53, H26.499) Status : Active Pseudophakia of both eyes (V43.1, Z96.1) Status: Active Pneumonia (486, J18.9) Status: Active Radiculopathy (729.2, M54.10) Status: Active Myelopathy (336.9, G95.9) Status: Active Incipient senile cataract (366.12, H25.099) Status: Active Chronic kidney disease, stage III (moderate) (585.3, N18.3) Status: Active Mental status change (780.97, R41.82) Status: Active Chronic renal insufficiency (585.9, N18.9) Status: Active Hypercholesterolemia (272.0, E78.0) Status: Active Macular hole (362.54, H35.349) Status: Active Nonexudative macular degeneration (362.51, H35.31) Status: Active Pseudophakia (V43.1, Z96.1) Status: Active Myopia (367.1, H52.10) Status: Active 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 Refills: 0 Prahbu Bill M.D. Started 01-Jan-2013 ActiveFentaNYL 75 MCG/HR [...] Influenza Comments: 06/25/08 @ [place] Family History Mother Name Dates Details Family [...] not documented Goal Planned Encounters Appointment; Provider: Cathleen Acevedo On 20-Jul-2011 09:30 [...]
--- OUTSIDE RECORDS SUMMARY | 2018-01-26 15:46 | External Medical Summary | Continuity of Care Document ---
:1945 Author Organization [facility] Care Team Providers Name Role Phone GLADIS, HOLLY Spicer MD Unavailable Unavailable Insurance Providers Payer Name Policy Number Subscriber Name Relationship Veterans Choice [id number] Kandi Castillo 18 Self / Same As Patient Medicare A And B [id number] Isabela Castillone A 18 Self / Same As Patient [facility] [id number] Kandi Castillo A 18 Self / Same As Patient Advance Directives Directive Response Recorded Date/Time Advanced Directives No 01/04/17 11:23pm Type Durable Power of Water Filterer 01/04/17 11:23pm Type Durable Power of Water Filterer 01/04/17 11:23pm Problems Active Problems Medical Problem Onset Date Status Adult respiratory distress syndrome 11/01/2013 Acute Aspiration pneumonia ~02/13/2014 Acute Atrial fibrillation 11/03/2013 Acute Chronic right hip pain Unknown Acute Dehydration Unknown Acute Laceration Unknown Acute Laceration of forehead Unknown Acute Osteoporosis ~10/16/2015 Acute Pneumonia 10/07/2013 Acute Pulmonary embolism 10/18/2013 Acute Respiratory failure 10/18/2013 Acute Right wrist sprain Unknown Acute Sciatica of right side Unknown Acute Medications Current Home Medications Medication Dose Units Route Directions Days/Qty Instructions Start Date Albuterol Sulfate 1 Vial RESPIRATORY Every 4HRS 10/25/ 2.5 Mg/3 Ml (INHALATION) as needed 14 for Copd Pravastatin 0.5 Tab ORAL Bedtime 10/25/ Sodium 80 Mg 14 Tiotropium 1 Puff RESPIRATORY Daily 10/25/ [place] 18 Mcg (INHALATION) 14 Ferrous Sulfate 325 Mg ORAL Twice A Day 11/07/ 325 Mg 14 Furosemide 40 Mg 1.5 Mg ORAL Daily Fentanyl 1 Each 50 Mcg TRANSDERMAL Q72hr for 02/25/ Chronic Pain 14 Prednisone 50 Mg 50 Mg ORAL Daily Moxifloxacin Hcl 400 Mg ORAL Daily In Pm 07/27/ 400 Mg 14 Levothyroxine 112 Mcg ORAL Daily 07/27/ Sodium 112 Mcg 14 Lisinopril 20 Mg 20 Mg ORAL Daily [Theragran-M 1 Cap ORAL Daily In Am 07/27/ [place]] 14 Cholecalciferol 2,000 Unit ORAL Daily 07/27/ (Vitamin D3) 14 2,000 Unit Sennosides 8.6 Mg 8.6 Mg ORAL Twice A Day Amitriptyline Hcl 10 Mg ORAL Bedtime for 07/27/ Mg Insomnia 14 Mirtazapine 15 Mg 15 Mg ORAL Bedtime Polyethylene 1 Gm ORAL Daily 07/27/ Glycol 119 Gm 14 Metoclopramide 5 Mg ORAL Three Times 07/27/ Hcl 5 Mg A Day Before 14 Meals Phosp 15-30 Ml ORAL As Needed 07/27/ Acid/Dextrose/Fru for Nausea 14 ctose 236 Ml Alprazolam 0.25 0.25 Mg ORAL As Needed 07/27/ Mg for Anxiety 14 Acetaminophen/Hyd 1-2 Tab ORAL As Needed as 07/27/ rocodone Bitart 1 needed for 14 Ea Pain Guaifenesin/Dextr 1-2 Tsp ORAL As Needed 07/27/ omethorphan 5 Ml 14 Fluticasone/Salme 2 Puff RESPIRATORY Twice A Day 07/27/ terol 8 Gm (INHALATION) 14 Nystatin 30 Gm Unknown TOPICAL Twice A Day 07/27/ Dose 14 Polyvinyl Unknown OPTHALMIC Twice A Day 07/27/ Alcohol/Povidone Dose as needed 14 15 Ml for Dry Eyes Citalopram 40 Mg ORAL Daily 10/16/ Hydrobromide 16 (Celexa) 40 Mg Oxycodone/Acetami 1 Tab ORAL As Directed 12/17/ nophen 1 Tab as needed 16 for Pain Cephalexin 500 Mg ORAL Three Times 15 01/04/ Monohydrate 500 A Day 17 Mg Past Home Medications Medication Directions Ordered Status Multivitamin With Minerals 1 Each Daily 06/12/13 Discontinued Tablet, 1 Tab Oral Loratadine 10 Mg Tablet, 10 Mg Oral Daily 06/12/13 Discontinued Lisinopril/Hydrochlorothiazide 1 Daily 06/12/13 Discontinued Each Tablet, 1 Tab Oral Levothyroxine Sodium (Synthroid) Daily 06/12/13 Discontinued 100 Mcg Tablet, 112 Mcg Oral Ranitidine Hcl 150 Mg Tablet, 150 Twice A Day 06/12/13 Discontinued Mg Oral Gabapentin 600 Mg Tablet, 1200 Mg Twice A Day 06/12/13 Discontinued Oral Metoclopramide Hcl 10 Mg Tablet, 10 Three Times A Day 06/12/13 Discontinued Mg Oral Sucralfate 1 Gm Tablet, 1 Gm Oral Four Times Daily 06/12/13 Discontinued Mirtazapine 45 Mg Tablet, 45 Mg Bedtime 06/12/13 Discontinued Oral Simvastatin 40 Mg Tablet, 40 Mg Daily 06/12/13 Discontinued Oral Quetiapine Fumarate 200 Mg Tablet, Bedtime 06/12/13 Discontinued 200 Mg Oral Lorazepam 0.5 Mg Tablet, 0.5 Mg As Needed 06/12/13 Discontinued Oral Divalproex Sodium (Divalproex 10/07/13 Discontinued Sodium Er) 500 Mg Tab, 1000 Mg Oral Divalproex Sodium 500 Mg Tablet.dr, Every 12 Hours 10/25/13 Discontinued 500 Mg Oral Acetaminophen 325 Mg Tablet, 650 Mg Every 6 Hours as needed 10/25/13 Discontinued Oral Calcium Carbonate 500 Mg Tablet, Twice A Day With Meals 10/25/13 Discontinued 1000 Mg Oral Ergocalciferol 50,000 Unit Capsule, Monday@10/25/13 Discontinued [id number] Unit Oral Lactulose 10 Gm/15 Ml Solution, 20 Daily 10/25/13 Discontinued Gm Oral Nystatin 30 Gm Cream.gm., 1 Applic Twice A Day 10/25/13 Discontinued Topical Polyethylene Glycol 17 Gm Pack, 17 Daily 10/25/13 Discontinued Gm Oral Warfarin Sodium 2.5 Mg Tablet, 2.5 Daily@1700 10/25/13 Discontinued Mg Oral Cholecalciferol (Vitamin D3) 2,000 Daily 10/25/13 Discontinued Unit Tablet, 2000 Unit Oral Ergocalciferol 50,000 Unit Capsule, Monday@10/25/13 Discontinued [id number] Unit Oral Ascorbic Acid 500 Mg Tablet, 500 Mg Twice A Day 11/07/13 Discontinued Oral Diltiazem Hcl 240 Mg Cap.er.24h, Daily 11/07/13 Discontinued 240 Mg Oral Fluoxetine Hcl 20 Mg Cap, 20 Mg Daily 11/07/13 Discontinued Oral Fluticasone/Salmeterol 8 Gm Twice A Day 11/07/13 Discontinued Hfa.aer.ad, 2 Puff Respiratory (Inhalation) Guaifenesin 600 Mg Tab, 1200 Mg Twice A Day 11/07/13 Discontinued Oral Djuhkbyhhjip-Gmjf-Ybjwrvhl,Iso 4.5 Every 6 Hours 11/07/13 Discontinued Gm/100 Ml Froz.piggy, 4.5 Gm Intravenous Potassium Chloride 10 Meq Daily 11/07/13 Discontinued Capsule.er, 10 Meq Oral Sucralfate 1 Gm Tablet, 1 Gm Oral Twice A Day 11/07/13 Discontinued Tramadol Hcl 50 Mg Tablet, 50 Mg Q6hr Prn as needed for Pain 11/07/13 Discontinued Oral Tramadol Hcl 50 Mg Tablet, 50 Mg Twice A Day 11/07/13 Discontinued Oral Fentanyl 1 Each Patch.td72, 50 Mcg Q72hr 02/13/14 Discontinued Transdermal Spironolactone (Aldactone) 25 Mg Daily 02/13/14 Discontinued Tablet, 25 Mg Oral Alprazolam (Xanax) 0.25 Mg Tablet, Q6hr Prn for Anxiety 02/13/14 Discontinued 0.25 Mg Oral Citalopram Hydrobromide 20 Mg Daily 02/13/14 Discontinued Tablet, 20 Mg Oral Mirtazapine (Remeron) 15 Mg Tablet, Bedtime 02/13/14 Discontinued 15 Mg Oral Ranitidine Hcl 150 Mg Tablet, 150 Twice A Day 02/13/14 Discontinued Mg Oral Amitriptyline Hcl 10 Mg Tablet, 10 Bedtime 02/13/14 Discontinued Mg Oral Calcium Carbonate 200 Mg Tab.chew, Twice A Day 02/13/14 Discontinued 1000 Mg Oral Multivitamin 1 Each Tablet, 1 Each Daily 02/13/14 Discontinued Oral Fluticasone/Salmeterol 8 Gm Twice A Day 07/27/14 Discontinued Hfa.aer.ad, 2 Puff Respiratory (Inhalation) Social History Social History Problem Response Recorded Date/Time Onset Date Status Exposure to occupational hazards No 02/17/2014 2:23pm Query Response Start Date Stop Date Smoking Status Former smoker Hospital Discharge Instructions Current inpatient/outpatient. Discharge instructions are currently unavailable. Plan of Care Prescriptions Functional Status No functional status results. Allergies, Adverse Reactions, Alerts Allergen Type Severity Reaction Status Last Updated Iron Allergy Unknown Active 01/05/17 Erythromycin base Allergy Unknown Nausea Active 04/15/16 Azithromycin Allergy Unknown Active 01/05/17 Immunizations Name Given Type Status Date Pneumonia Vaccine Received if Current 07/26/13 Historical Historical Date Influenza Vaccine Received if Current 07/14/15 Historical Historical Tdap 01/04/17 Administered Completed Vital Signs Acute Vital Signs Vital Response Date/Time Temperature (Fahrenheit) 97.8 01/05/2017 2:36am Pulse 34 bpm 01/05/2017 2:36am Respirations 18 01/05/2017 2:36am Results No known relevant diagnostic tests, laboratory data and/or discharge summary. Procedures No known history of procedures. Encounters Encounter Location Arrival/Admit Date Discharge/Depart Date Attending Provider Registered [place] 01/05/17 12:01[facility] MD Departed [place] 01/04/17 11:04pm 01/05/17 12:01am [facility] GRUPO Hernandez MD Registered [place] [facility] MD
--- OUTSIDE RECORDS SUMMARY | 2018-01-26 15:47 | External Medical Summary | Summary of Care ---
[...] 0 Gino Saunders M.D. Start 15-Jan-2016 Active [place]'s Mouth Rinse 2 tsp swish and spit TID Refills: 0 Sean Ballesteros M.D. Start Active Terbinafine HCl - 250 MG Oral Tablet 1 po for 14 days Quantity: 14 Refills: 0 Sean Ballesteros M.D. Start Active Spiriva HandiHaler 18 MCG Inhalation Capsule INHALE CONTENTS OF 1 CAPSULE ONCE DAILY. Quantity: 1 Refills: 6 Nickybarbara Whitman, Gino Start 11-Apr-2016 Active 30 Capsule Box [...] Start 26-Apr-2016 Active 238 GM Bottle Nystatin 203683 UNIT/ML Mouth/Throat Suspension Swish and swallow 10 [...] Lot #: [id number] Influenza Comments: 06/25/08 @ [place] Family History Unknown Family Member Name Dates [...] low Range: >60 threshold) EST GFR, NON-AFR MONEGASQUE 46 ml/min (Below low Range: >60 threshold) [...] RBC Comments: Testing performed at : [DA] [facility], [address] [place] [address], [phone], , Internal Audit Manager: YING Maldonado MDTesting performed at: [ BN] [facility] [id number] [place] [address], [phone], , Internal Audit Manager: Nito Hsieh MD RBC 4.13 x10E6/uL Range: [...] Grewal M.D. On 01-Aug-2016 13:15 Interventions Provided Labs/Procedures/ImagingALT 1185; To be Done: 27 Jul 2016AST 1180; To be Done: 27 Jul 2016 Instructions Name Dates Details Instructions not [...]
--- OUTSIDE RECORDS SUMMARY | 2018-01-26 15:47 | External Medical Summary | Summary of Care ---
:1945 Author Name Nicky Whitman, Gino Address Unavailable Unavailable , Care Team Providers Name Role Phone Nciky Whitman, Darvin Unavailable Unavailable Nicky Whitman, Gino [...] Status: Active Hypertension (401.9, I10) Status: Active Osteoporosis (733.00, M81.0) Status: Active Pain in thoracic spine (724.1, M54.6) Status: Active Stomatitis (528.00, K12.1) Status: Active Anxiety (300.00, F41.9) Status: Active Lower back pain (724.2, M54.5) Status: Active Neck pain (723.1, M54.2) Status: Active Osteoarthritis (715.90, M19.90) Status: Active Medications Name Dates Details Multiple [...] 0 Darvin Saunders M.D. Start 01-Jan-2013 Active [place]'s Mouth Rinse 2 tsp swish and spit TID Refills: 0 Laura Ballesteros M.D.de Izabella Start Active Terbinafine HCl - 250 [...] M.D. Start 11-Apr-2016 Active 15.8 ML Bottle Oxycodone-Acetaminophen 10-325 MG Oral Tablet Take 1 TID. May have 1 po PRN during night, but must be 6 hrs apart. Refills: 0 Gino Saunders M.D. Start 13-Apr-2016 Active Allergies and Adverse Reactions Name Dates [...] Influenza Comments: 06/25/08 @ [place] Family History Mother Name Dates Details Family [...] smoker Vital Signs Date Test Result Details 13-Apr-2016 13:20 BP Systolic 140 mm[Hg] Status: Comments: Location: ; Position: BP Diastolic 72 mm[Hg] Status: Comments: Location: ; Position: Temperature 98 f Status: Comments: Method: Heart Rate 85 /min Status: Comments: Location: ; Weight 141 lb Status: Physical Findings 98 Status: Comments: O2 Saturation Body Mass Index Calculated 24.98 kg/m2 Status: Body Surface Area Calculated 1.67 m2 Status: 13:33 BP Systolic 112 mm[Hg] Status: Comments: [...] Ballesteros M.D. On 18-May-2016 09:45 Appointment; Provider: Dario Grewal M.D. On 27-Apr-2016 12:00 Appointment; Provider: Gino Saunders M.D. On 20-Apr-2016 [...]
--- OUTSIDE RECORDS SUMMARY | 2018-01-26 15:47 | External Medical Summary | Summary of Care ---
[...] 3 Gino Saunders M.D. Start 01-Jan-2013 Active Nystatin [...] M.D. Start 26-Apr-2016 Active 238 GM Bottle Oxycodone-Acetaminophen 10-325 MG Oral Tablet TAKE 1 TO 2 TABLETS EVERY 6 HOURS NEEDED FOR PAIN. Quantity: 200 Refills: 0 Gino Saunders M.D. Start 15-Apr-2016 [...] Cholecystectomy Drug Screen Pain Management 8400 Ordered: 19-Apr-2016 Drug Screen Pain Management 8400 Ordered: 20-May-2016 Immunization Name Dates Details Pneumo (Pneumovax) on: 22-May-2006 Influenza on: 15-Jun-2007 Fluzone INJ on: 19-May-2009 Influenza A (H1N1) [place] Vac SUSP on: 31-Jul-2009 Influenza on: 26-May-2010 Pneumovax 23 25 MCG/0.5ML Injection Injectable on: Lot #: [id number] Influenza Comments: 06/25/08 @ [place] Family History Mother Name Dates Details Family [...] Encounters Appointment; Provider: Gino Saunders M.D. On 22-Jun-2016 11:00 Appointment; Provider: Sean Ballesteros M.D. On 22-Jun-2016 09:45 Interventions Provided Medication ChangesOxycodone-Acetaminophen 10-325 MG Oral Tablet - Renew Instructions Name Dates Details Instructions not documented Encounters Appointment; Sean Ballesteros M.D. On 18-May-2016 Encounter [...]
--- OUTSIDE RECORDS SUMMARY | 2018-01-26 15:47 | External Medical Summary | Summary of Care ---
:1945 Author Name Gino Saunders M.D. Address Unavailable Unavailable , Care Team Providers Name Role Phone Nicky Whitman, Gino Unavailable Unavailable Favian Whitman, Sean Parekh Unavailable Unavailable Landy Whitman, Prabhu Stewart Unavailable Unavailable Draper, Gino Unavailable Unavailable Unavailable Unavailable Unavailable Functional Status Functional Status Health Issues Name Dates Details Functional status health issues are not documented Status: Cognitive Status Health Issues Name Dates Details Cognitive status health issues are not documented Status: Problems Name Dates Details Asthma (493.90, J45.909) Status: Active Macular hole (362.54, H35.349) Status: Active Nonexudative macular degeneration (362.51, H35.3190) Status: Active GERD (gastroesophageal reflux disease) (530.81, K21.9) Status: Active Vitamin D deficiency (268.9, E55.9) Status: Active Bursitis, hip (726.5, M70.70) Status: Active Hip pain (719.45, M25.559) Status: Active Osteoporosis (733.00, M81.0) Status: Active Pain in thoracic spine (724.1, M54.6) Status: Active Stomatitis (528.00, K12.1) Status: Active Neck pain (723.1, M54.2) Status: Active Osteoarthritis (715.90, M19.90) Status: Active Constipation (564.00, K59.00) Status: Active Chronic obstructive pulmonary disease (496, J44.9) Status: Active Anxiety (300.00, F41.9) Status: Active Hypercholesterolemia (272.0, E78.00) Status: Active Hypertension (401.9, I10) Status: Active Hypothyroidism (244.9, E03.9) Status: Active Lower back pain (724.2, M54.5) Status: Active Ataxic gait (781.2, R26.0) Status: Active Depression (311, F32.9) Status: Active Medications Name Dates Details Multiple Vitamins Oral Tablet TAKE 1 TABLET DAILY. Refills: 0 Landy Whitman Prabhu Stewart Start 01-Jan-2013 Active Mirtazapine 30 MG Oral [...] INHALATION ONCE DAILY. Quantity: 1 Refills: 6 Draper M.D., Gino Start 11-Apr-2016 Active 60 Aerosol Powder Breath Activated Disp Pack Fluticasone Propionate 50 MCG/ACT Nasal Suspension USE 1 SPRAY IN EACH NOSTRIL TWICE DAILY. Quantity: 1 Refills: 6 Gino Saunders M.D. Start 11-Apr-2016 Active 15.8 ML Bottle Amitriptyline HCl - 10 MG Oral Tablet TAKE 3 TABLET AT BEDTIME. Refills: 0 Gino Saunders M.D. Start 15-Jan-2016 Active LORazepam 0.5 MG Oral Tablet TAKE [...] M.D. Start 26-Apr-2016 Active 238 GM Bottle Citalopram Hydrobromide 40 MG Oral Tablet TAKE [...] smoker Vital Signs Date Test Result Details 22-Jun-2016 11:03 BP Systolic 106 mm[Hg] Status: Comments: Location: ; Position: BP Diastolic 58 mm[Hg] Status: Comments: Location: ; Position: Temperature 98.8 f Status: Comments: Method: Heart Rate 63 /min Status: Comments: Location: ; Weight 149 lb Status: Physical Findings 98 Status: Comments: O2 Saturation Body Mass Index Calculated 26.39 kg/m2 Status: Body Surface Area Calculated 1.71 m2 Status: Results Date Description Value Details Results not documented Plan of Care Name Dates Details Planned Observations Planned Goals not documented Planned Encounters Appointment; Provider: Gino Saunders M.D. On 24-Aug-2016 10:30 Appointment; Provider: Dario Grewal M.D. On 05-Jul-2016 14:00 Appointment; Provider: Hyun Lockhart On 05-Jul-2016 13:00 Interventions Provided Medication ChangesFentaNYL 75 MCG/HR Transdermal Patch 72 Hour - RenewOxycodone- Acetaminophen 10-325 MG Oral Tablet - Renew Instructions Name Dates Details Instructions not documented Encounters Appointment; Gino Saunders M.D. On 23-May-2016 Encounter [...]
--- OUTSIDE RECORDS SUMMARY | 2018-01-26 15:47 | External Medical Summary | Continuity of Care Document ---
:1945 Author Organization [facility] Care Team Providers Name Role Phone GLADIS, HOLLY Spicer MD Unavailable Unavailable Insurance Providers Payer Name Policy Number Subscriber Name Relationship Medicare A And B [id number] Kandi Castillo 18 Self / Same As Patient Medicare Other [id number] Kandi Castillo A 18 Self / Same As Patient [facility] Amerigrp [id number] Kandi Castillo A 18 Self / Same As Patient Advance Directives Directive Response Recorded Date/Time Advanced Directives No 04/15/16 10:47pm Type Durable Power of Suggestion Clerk 04/15/16 10:47pm Type Durable Power of Suggestion Clerk 04/15/16 10:47pm Chief Complaint and Reason for Visit Chief Complaint Pain Reason for Visit Sciatica of right side Problems Active Problems Medical Problem Onset Date Status Adult respiratory distress syndrome 11/01/2013 Acute Aspiration pneumonia ~02/13/2014 Acute Atrial fibrillation 11/03/2013 Acute Chronic right hip pain Unknown Acute Dehydration Unknown Acute Osteoporosis ~10/16/2015 Acute Pneumonia 10/07/2013 [...] 14 Tiotropium 1 Puff RESPIRATORY Daily 10/25/ [place] 18 Mcg (INHALATION) 14 Ferrous Sulfate 325 Mg ORAL Twice A Day 11/07/ 325 Mg 14 Furosemide 40 Mg 1.5 Mg ORAL Daily Fentanyl 1 Each 50 Mcg TRANSDERMAL Q72hr for 10 02/25/ Chronic Pain 14 Prednisone 50 Mg [...] 1 Tab as needed 16 for Pain Past Home Medications Medication Directions Ordered Status [...] Oral Ergocalciferol 50,000 Unit Capsule, Monday@10/25/13 Discontinued 35128 Unit Oral Lactulose 10 Gm/15 Ml Solution, [...] Oral Ergocalciferol 50,000 Unit Capsule, Monday@10/25/13 Discontinued 21070 Unit Oral Ascorbic Acid 500 Mg Tablet, 500 Mg Twice A Day 11/07/13 Discontinued Oral Diltiazem Hcl 240 Mg Cap.er.24h, Daily 11/07/13 Discontinued 240 Mg Oral Fluoxetine Hcl 20 Mg Cap, 20 Mg Daily 11/07/13 Discontinued Oral Fluticasone/Salmeterol 8 Gm Twice A Day 11/07/13 Discontinued Hfa.aer.ad, 2 Puff Respiratory (Inhalation) Guaifenesin 600 Mg Tab, 1200 Mg Twice A Day 11/07/13 Discontinued Oral Xxxncnefndry-Kpsx-Quwxpbjo,Iso 4.5 Every 6 Hours 11/07/13 Discontinued Gm/100 [...] Smoking Status Former smoker Hospital Discharge Instructions No hospital discharge instructions. Plan of Care Discharge Date 04/16/16 5:30am Disposition 01 HOME OR SELF-CARE Condition at Discharge Stable Instructions/Education Provided Sciatica (ED) Prescriptions See Medication Section Referrals HOLLY GRIFFITH MD - Additional Instructions/Education ED ALYCE if any worse. Follow up with your doctor this coming week. Some of your test results may not be complete prior to your leaving the Emergency Department. The Emergency Department is not authorized to give test results over the phone. Please contact the doctor's office listed in this packet of information for your final results. Follow up with your primary care physician or return to the Emergency Department for worsening or worrisome symptoms. * Emergency Department phone number: [phone], x [phone]* MEDICAL RECORD If you need copies of your X-rays, call [phone] x [phone]. If you need copies of your medical record, including lab results, a signed authorization for release of records will be required. A telephone call for release of Health Information is not allowed. BILLING Billing can sometimes be confusing and frustrating. To help avoid confusion in the future, please take a moment to acquaint yourself with the billing parties for services. [facility] Emergency Room Services [facility] Physician Services [facility] X-rays [place] [facility] Patients will receive bills for services from the appropriate provider. If you have any questions about your [facility] bill, our staff will be happy to assist you. Please call [phone], and ask for the billing department. THANK YOU for choosing [facility] as your emergency care provider! Care Plan and Goals ~~Discharge Care Plan~~ Problem: Back pain Goal: Decreased level of pain. Return to usual activities. Instructions: Take medication(s) as directed; follow up with your primary care physician as directed; follow patient home care instructions. Apply ice or heat to site for comfort. Functional Status No functional status results. Allergies, Adverse Reactions, Alerts Allergen Type Severity Reaction Status Last Updated Erythromycin base Allergy Unknown Nausea Active 04/15/16 Immunizations Name Given Type Status Date Pneumonia Vaccine Received if Current 07/26/13 Historical Historical Date Influenza Vaccine Received if Current 07/14/15 Historical Historical Vital Signs Acute Vital Signs Vital Response Date/Time Temperature (Fahrenheit) 97.8 04/16/2016 5:53am Pulse 75 bpm 04/16/2016 5:53am Respirations 18 04/16/2016 5:53am Height 5 ft 3 in Weight 135 lb Body Mass Index 23.0 kg/m^2 Results No known relevant diagnostic tests, laboratory data and/or discharge summary. Procedures No known history of procedures. Encounters Encounter Location Arrival/Admit Date Discharge/Depart Date Attending Provider Departed [facility] 04/15/16 10:41pm 04/16/16 5:30am [facility] GRUPO Hernandez MD Registered [facility] 04/09/16 3:48pm [facility] Kayla LANCASTER Recent Diagnosis
--- OUTSIDE RECORDS SUMMARY | 2018-01-26 15:48 | External Medical Summary | Summary of Care ---
:1945 Author Name Gino Saunders M.D. Address Unavailable Unavailable , Care Team Providers Name Role Phone Gino Saunders M.D. Unavailable Unavailable Favian Whitman, Sean Parekh Unavailable Unavailable Landy Whitman, Prabhu Stewart Unavailable Unavailable Nicky, Gino Unavailable Unavailable Unavailable [...] Status: Active Depression (311, F32.9) Status: Active Osteoporosis (733.00, M81.0) Status: Active [...] Tablet TAKE 1 TABLET DAILY. Refills: 0 Bharat Bill M.D.en Terry Start 01-Jan-2013 Active Mirtazapine 30 MG Oral [...] TAKE 1 TABLET DAILY. Refills: 0 Gino Saunedrs M.D. Start 15-Jan-2016 Active Synthroid 100 MCG Oral Tablet TAKE 1 TABLET DAILY. Refills: 0 Gino Saunders M.D. Start 15-Jan-2016 Active Vitamin D-3 1000 UNIT Oral Capsule take 2 po daily Refills: 0 Gino Saundres M.D. Start 15-Jan-2016 Active Zofran 4 MG Oral Tablet take 1 po Q am Refills: 0 Gino Saunders M.D. Start 15-Jan-2016 Active Senokot 8.6 MG Oral Tablet take 1 po bid Refills: 0 Gino Saunders M.D. Start 15-Jan-2016 Active [place]'s Mouth Rinse 2 tsp swish and spit [...] FOR WHEEZING . Quantity: 1 Refills: 5 [place] M.DGino Guerrero Start 11-Apr-2016 Active 3 ML Plas Cont (60 Plas Conts) Breo Ellipta 100-25 MCG/INH Inhalation Aerosol Powder Breath Activated USE 1 INHALATION ONCE DAILY. Quantity: 1 Refills: 6 Nicky M.DGino Guerrero Start 11-Apr-2016 Active 60 Aerosol Powder Breath Activated Disp Pack Fluticasone Propionate 50 MCG/ACT Nasal Suspension USE 1 SPRAY IN EACH NOSTRIL TWICE DAILY. Quantity: 1 Refills: 6 [place] M.D., Gino Start 11-Apr-2016 Active 15.8 ML Bottle Amitriptyline HCl - 10 MG Oral Tablet TAKE 3 TABLET AT BEDTIME. Refills: 0 Nicky Spicer.Gino Kraft Start 15-Jan-2016 Active Oxycodone-Acetaminophen 10-325 MG Oral Tablet TAKE 1 TO 2 TABLETS EVERY 6 HOURS NEEDED FOR PAIN. Quantity: 200 Refills: 0 Gino Saunders M.D. Start 15-Apr-2016 Active FentaNYL 75 MCG/HR Transdermal Patch 72 Hour APPLY 1 PATCH EVERY 3 DAYS Quantity: 10 Refills: 0 Nicky M.Swapnil, Gino Start 01-Jan-2013 Active LORazepam 0.5 MG Oral Tablet TAKE 1/2 TAB Q 6 HRS PRN Quantity: 90 Refills: 3 Nicky M.Swapnil, Gino Start 01-Jan-2013 Active Nystatin Powder USE DIRECTED. Quantity: 3 Refills: 3 [place] M.DGino Guerrero Start 20-Apr-2016 Active Allergies and Adverse Reactions Name Dates [...] Drug Screen Pain Management 8400 Ordered: 19-Apr-2016 Immunization Name Dates Details Pneumo (Pneumovax) on: [...] smoker Vital Signs Date Test Result Details 20-Apr-2016 11:03 BP Systolic 110 mm[Hg] Status: Comments: Location: ; Position: BP Diastolic 64 mm[Hg] Status: Comments: Location: ; Position: Temperature 98.6 f Status: Comments: Method: Heart Rate 81 /min Status: Comments: Location: ; Physical Findings 98 Status: Comments: O2 Saturation 13-Apr-2016 13:20 BP Systolic 140 mm[Hg] Status: [...] Provider: Dario Grewal M.D. On 27-Apr-2016 12:00 Interventions Provided Medication ChangesFentaNYL 75 MCG/HR Transdermal [...]
--- OUTSIDE RECORDS SUMMARY | 2018-01-26 15:48 | External Medical Summary | Continuity of Care Document ---
:1945 Author Organization [facility] Care Team Providers Name Role Phone GLADIS, HOLLY Spicer MD Unavailable Unavailable Insurance Providers Payer Name Policy Number Subscriber Name Relationship Medicare A And B [id number] Kandi Castillo 18 Self / Same As Patient Medicare Other [id number] Kandi Castillo A 18 Self / Same As Patient [facility] [employer] [id number] Kandi Castillo A 18 Self / Same As Patient Advance Directives Directive Response Recorded Date/Time Advanced Directives No 04/15/16 10:47pm Type Durable Power of Recruitment Coordinator 04/15/16 10:47pm Type Durable Power of Recruitment Coordinator 04/15/16 10:47pm Chief Complaint and Reason for [...] 14 Tiotropium 1 Puff RESPIRATORY Daily 10/25/ [place] 18 Mcg (INHALATION) 14 Ferrous Sulfate 325 [...] Oral Ergocalciferol 50,000 Unit Capsule, Monday@10/25/13 Discontinued 94799 Unit Oral Lactulose 10 Gm/15 Ml Solution, [...] Oral Ergocalciferol 50,000 Unit Capsule, Monday@10/25/13 Discontinued 10094 Unit Oral Ascorbic Acid 500 Mg Tablet, 500 Mg Twice A Day 11/07/13 Discontinued Oral Diltiazem Hcl 240 Mg Cap.er.24h, Daily 11/07/13 Discontinued 240 Mg Oral Fluoxetine Hcl 20 Mg Cap, 20 Mg Daily 11/07/13 Discontinued Oral Fluticasone/Salmeterol 8 Gm Twice A Day 11/07/13 Discontinued Hfa.aer.ad, 2 Puff Respiratory (Inhalation) Guaifenesin 600 Mg Tab, 1200 Mg Twice A Day 11/07/13 Discontinued Oral Wdsxlkmphwtm-Xcfl-Mtqovkej,Iso 4.5 Every 6 Hours 11/07/13 Discontinued Gm/100 [...] worrisome symptoms. * Emergency Department phone number: [phone], x [phone]* MEDICAL RECORD If you need copies of your X-rays, call [phone] x [phone]. If you need copies of [...] the billing parties for services. [facility] Emergency Room Services [facility] Physician Services [facility] X-rays [place] [facility] Patients will receive bills for services from the appropriate provider. If you have any questions about your [facility] bill, our staff will be happy to assist you. Please call [phone], and ask for the billing department. THANK YOU for choosing [facility] as your emergency care provider! Care Plan [...]
--- OUTSIDE RECORDS SUMMARY | 2018-01-26 15:48 | External Medical Summary | Summary of Care ---
[...] Bharat Bill M.D.en Terry Start 01-Jan-2013 Active Ativan 0.5 MG [...] for 14 days Quantity: 14 Refills: 0 Favian Whitman Sean Parekh Start Active FentaNYL 75 MCG/HR Transdermal Patch [...] 0 Gino Saunders M.D. Start 13-Apr-2016 Active Amitriptyline HCl - 10 MG Oral [...] Influenza Comments: 06/25/08 @ [place] Family History Mother Name Dates Details Family [...]
--- OUTSIDE RECORDS SUMMARY | 2018-01-26 15:48 | External Medical Summary | Summary of Care ---
:1945 Author Name Cindy Suazo Address [address] Unavailable [place], [place] [id number] Care Team Providers Name Role Phone Cindy Suazo Unavailable Nani Saunders M.D., Gino Unavailable Nani Ballesteros M.D., Sean Parekh Unavailable Unavailable Landy Whitman, Prabhu [...] L60.3) Status: Active Medications Name Dates Details Mirtazapine 30 MG Oral Tablet TAKE 1 TABLET AT BEDTIME. Refills: 0 Gino Saunders M.D. Start 03-Jan-2012 Active LORazepam 0.5 MG Oral Tablet TAKE 1 TABLET EVERY 6 HOURS NEEDED. Quantity: 90 Refills: 2 Nicky Whitman, Gino Start 01-Jan-2013 Active Multiple Vitamins Oral Tablet TAKE 1 TABLET DAILY. Refills: 0 Prabhu Bill M.D. Start 01-Jan-2013 Active Reglan 10 MG Oral Tablet TAKE 1 TABLET TWICE DAILY. Refills: 0 Gino Saunders M.D. Start 01-Jan-2013 Active FentaNYL 75 MCG/HR Transdermal Patch 72 Hour APPLY 1 PATCH EVERY 3 DAYS Quantity: 10 Refills: 0 Gino Saunders M.D. Start 01-Jan-2013 Active Amitriptyline HCl - 10 MG Oral Tablet TAKE 3 TABLET AT BEDTIME. Refills: 0 Gino Saunders M.D. Start 15-Jan-2016 Active Citalopram [...] 0 Nicky Whitman, Gino Start 15-Jan-2016 Active Ondansetron HCl - 4 MG Oral Tablet take 1 po Q am PRN Quantity: 30 Refills: 2 Nicky Whitman, Gino Start 15-Jan-2016 Active Senokot 8.6 MG Oral Tablet take 1 po bid Refills: 0 Gino Saunders M.D. Start 15-Jan-2016 Active Terbinafine HCl - 250 MG Oral Tablet 1 po for 14 days Quantity: 14 Refills: 0 Sean Ballesteros M.D. Start Active [place]'s Mouth Rinse 2 tsp swish and spit TID Refills: 0 Sean Ballesteros M.D. Start Active Breo Ellipta 100-25 MCG/INH Inhalation Aerosol Powder Breath Activated USE 1 INHALATION ONCE DAILY. Quantity: 1 Refills: 6 Gino Saunders M.D. Start 11-Apr-2016 Active 60 Aerosol Powder Breath Activated Disp Pack Spiriva HandiHaler 18 MCG Inhalation Capsule INHALE CONTENTS OF 1 CAPSULE ONCE DAILY. Quantity: 1 Refills: 6 Gino Saunders M.D. Start 11-Apr-2016 Active 30 Capsule Box Fluticasone Propionate 50 MCG/ACT Nasal Suspension USE 1 SPRAY IN EACH NOSTRIL TWICE DAILY. Quantity: 1 Refills: 6 Gino Saunders M.D. Start 11-Apr-2016 Active 15.8 ML Bottle Albuterol Sulfate (2.5 MG/3ML) 0.083% Inhalation Nebulization Solution USE 1 UNIT DOSE EVERY 4-6 HOURS NEEDED FOR WHEEZING . Quantity: 1 Refills: 5 Gino Saunders M.D. Start 11-Apr-2016 Active 3 ML Plas Cont (60 Plas Conts) Oxycodone-Acetaminophen 10-325 MG Oral Tablet Take 2 po every six hrs. Quantity: 240 Refills: 0 Gino Saunders M.D. Start 15-Apr-2016 Active Nystatin Powder USE DIRECTED. Quantity: 3 Refills: 3 Nicky Whitman, Gino Start 20-Apr-2016 Active Polyethylene Glycol 3350 Oral Powder MIX 1 CAPFUL (17GM) IN 8 OUNCES OF WATER, JUICE, OR TEA AND DRINK DAILY. Quantity: 1 Refills: 11 Nicky Whitman Gino Start 26-Apr-2016 Active 238 GM Bottle Nystatin 226662 UNIT/ML Mouth/Throat Suspension Swish and swallow 10 [...] CBC w/ Auto Diff 7150 Ordered: 22-Jun-2016 Immunization Name Dates Details Pneumo (Pneumovax) on: [...] low Range: >60 threshold) EST GFR, NON-AFR [place] 46 ml/min (Below low Range: >60 threshold) [...] RBC Comments: Testing performed at : [DA] [facility], [address] [address], [place], [address], , Respiratory Care Specialist: YING Maldonado MDTesting performed at: [ BN] [facility], [facility] [address] [place] [address], [address], , Respiratory Care Specialist: Nito Hsieh MD RBC 4.13 x10E6/uL Range: [...] Provider: Dario Grewal M.D. On 01-Aug-2016 13:15 Instructions Name Dates Details Instructions not documented Encounters Appointment; Gino Saunders M.D. On 04-Jul-2016 Encounter [...] Encounter Diagnosis: Problem not documented 14:00 Appointment; Reyse English M.D. On 12-Jan-2015 Encounter Diagnosis: Problem not documented 10:45 Appointment; Reyes English M.D. On 13-Oct-2014 Encounter Diagnosis: Problem not documented 10:45 Appointment; Reyes English M.D. On 01-Sep-2014 Encounter Diagnosis: Problem not documented 11:15 Appointment; Reyes English M.D. On 13-Aug-2014 Encounter Diagnosis: Problem not documented 11:15
--- OUTSIDE RECORDS SUMMARY | 2018-01-26 15:48 | External Medical Summary | Summary of Care ---
[...] 0 Gino Saunders M.D. Start 15-Jan-2016 Active [place]'s Mouth Rinse 2 tsp swish and spit [...] AT BEDTIME. Refills: 0 Gino Saunders M.D. 15-Jan-2016 Active Oxycodone-Acetaminophen 10-325 MG Oral Tablet TAKE 1 TO 2 TABLETS EVERY 6 HOURS NEEDED FOR PAIN. Refills: 0 Gino Saunders M.D. 15-Apr-2016 Active Allergies and Adverse Reactions Name [...] Lot #: [id number] Influenza Comments: 06/25/08 @ [place] Family History Mother Name Dates Details Family [...]
--- OUTSIDE RECORDS SUMMARY | 2018-01-26 15:49 | External Medical Summary | Summary of Care ---
:1945 Author Name Favian Whitman, Sean Parekh Address Unavailable Unavailable , Care Team Providers Name Role Phone Gino Saunders M.D. Unavailable Unavailable Sean Ballesteros M.D. Unavailable Unavailable Landy Whitman, Prabhu Stewart [...] Lower back pain (724.2, M54.5) Status: Active Constipation (564.00, K59.00) Status: Active Medications Name Dates Details Multiple [...] Influenza Comments: 06/25/08 @ [place] Family History Mother Name Dates Details Family [...] Physical Findings 98 Status: Comments: O2 Saturation Results Date Description Value Details Results not documented Plan of Care Name Dates Details Planned Observations Planned Goals not documented Planned Encounters Appointment; Provider: Gino Saunders M.D. On 23-May-2016 10:30 Instructions Name Dates Details Instructions not documented Encounters Appointment; Gino Saunders M.D. On 20-Apr-2016 Encounter [...] Encounter Diagnosis: Problem not documented 10:15 Appointment; iGno Saunders M.D. On Encounter Diagnosis: Problem not [...]
--- OUTSIDE RECORDS SUMMARY | 2018-01-26 15:49 | External Medical Summary | Summary of Care ---
[...] 14 Refills: 0 Sean Ballesteros M.D. Started Active [...] Lot #: [id number] Influenza Comments: 06/25/08 @ [place] Family History Mother Name Dates Details Family [...] Planned Encounters Appointment; Provider: Sean Ballesteros On 11-Apr-2016 09:30 [...]
--- OUTSIDE RECORDS SUMMARY | 2018-01-26 15:49 | External Medical Summary | Summary of Care ---
:1945 Author Name Gino Saunders M.D. Address [address] [place], [place] [id number] Care Team Providers Name Role Phone Gino [...] hours PRN pain Quantity: 120 Refills: 0 Gino Saunders M.D. Started 01-Jan-2013 ActiveFentaNYL 75 MCG/HR Transdermal Patch 72 Hour APPLY 1 PATCH EVERY 3 DAYS Refills: 0 Prabhu Bill M.D. Started 01-Jan-2013 Active Allergies and Adverse [...] Lot #: [id number] Influenza Comments: 06/25/08 @ [place] Family History Mother Name Dates Details Family [...]
--- OUTSIDE RECORDS SUMMARY | 2018-01-26 15:49 | External Medical Summary | Continuity of Care Document ---
:1945 Author Organization Care Team Providers Name Role Phone GLADIS, HOLLY Spicer MD Unavailable Unavailable Insurance Providers Payer Name Policy Number Subscriber Name Relationship Medicare A And B [id number] Kandi Castillo 18 Self / Same As Patient Medicare Other [id number] Kandi Castillo A 18 Self / Same As Patient [facility] Amer[employer]p [id number] Kandi Castillo 18 Self / Same As Patient Advance Directives Directive Response Recorded Date/Time Advanced Directives Yes 12/17/15 11:38pm Type Durable Power of Junior Brand Manager 07/27/14 9:35am Type Durable Power of Junior Brand Manager 10/16/15 9:57am Chief Complaint and Reason for Visit Chief Complaint Injury Reason for Visit [id number] Problems Active Problems Medical Problem Onset Date Status Adult respiratory distress syndrome 11/01/2013 Acute Aspiration pneumonia ~02/13/2014 Acute Atrial fibrillation 11/03/2013 Acute Dehydration Unknown Acute Osteoporosis ~10/16/2015 Acute Pneumonia 10/07/2013 Acute Pulmonary embolism 10/18/2013 Acute Respiratory failure 10/18/2013 Acute Right wrist sprain Unknown Acute Medications Current Home Medications Medication Dose Units Route Directions Days/Qty Instructions Start Date Albuterol Sulfate 1 Vial RESPIRATORY Every 4HRS 10/25/ 2.5 Mg/3 Ml (INHALATION) as needed 14 for Copd Pravastatin 0.5 Tab ORAL Bedtime 10/25/ Sodium 80 Mg 14 Tiotropium 1 Puff RESPIRATORY Daily 10/25/ [place] 18 Mcg (INHALATION) 14 Ferrous Sulfate 325 [...] Hcl 10 Mg ORAL Bedtime for 07/27/ 10 Mg Insomnia 14 Mirtazapine 15 Mg 15 [...] Daily 10/16/ Hydrobromide 16 (Celexa) 40 Mg Oxycodone 1 Tab ORAL As Directed 12/17/ Hcl/Acetaminophen as needed 16 1 Tab for Pain Past Home Medications Medication Directions [...] Oral Ergocalciferol 50,000 Unit Capsule, Monday@10/25/13 Discontinued 70766 Unit Oral Lactulose 10 Gm/15 Ml Solution, [...] Oral Ergocalciferol 50,000 Unit Capsule, Monday@10/25/13 Discontinued 39036 Unit Oral Ascorbic Acid 500 Mg Tablet, 500 Mg Twice A Day 11/07/13 Discontinued Oral Diltiazem Hcl 240 Mg Cap.er.24h, Daily 11/07/13 Discontinued 240 Mg Oral Fluoxetine Hcl 20 Mg Cap, 20 Mg Daily 11/07/13 Discontinued Oral Fluticasone/Salmeterol 8 Gm Twice A Day 11/07/13 Discontinued Hfa.aer.ad, 2 Puff Respiratory (Inhalation) Guaifenesin 600 Mg Tab, 1200 Mg Twice A Day 11/07/13 Discontinued Oral Pkfmzscxonca-Uewc-Npycodbc,Iso 4.5 Every 6 Hours 11/07/13 Discontinued Gm/100 [...] discharge instructions. Plan of Care Discharge Date 12/18/15 1:20am Disposition 01 HOME OR SELF-CARE Condition at Discharge Stable Prescriptions See Medication Section Referrals HOLLY GRIFFITH MD - Additional Instructions/Education ED ALYCE if any worse. Ice, elevate wrist. See your doctor in 3-5 days if not greatly improved. Some of your test results may not [...] worrisome symptoms. * Emergency Department phone number: [phone], x [phone]* MEDICAL RECORD If you need copies of your X-rays, call [phone] x [phone]. If you need copies of [...] services. [facility] Emergency Room Services Physician Services X-rays [facility] Patients will receive bills for services from the appropriate provider. If you have any questions about your bill, our staff will be happy to assist you. Please call [phone], and ask for the billing department. THANK YOU for choosing as your emergency care provider! Care Plan and Goals ~~Discharge Care Plan~~ Problem: Contusion, pain to affected area, fall. Goal: Decreased contusion and pain to affected area. Instructions: Apply ice to area for 15-20 minutes every 3-4 hours. Elevate extremity above the level of the heart, if applicable. Splint area with pillow or blanket to any chest/abdomen injuries. Use incentive spirometry as directed. Take at least 10 deep breaths per hour. Take medication(s) as directed. Follow up with regular physician or specialist as directed. Exercise as tolerated or directed by physician. Functional Status No functional status results. Allergies, Adverse Reactions, Alerts Allergen Type Severity Reaction Status Last Updated Erythromycin base Allergy Unknown Nausea Active 12/17/15 Immunizations Name Given Type Status Date Pneumonia Vaccine Received if Current 07/26/13 Historical Historical Date Influenza Vaccine Received if Current 07/14/14 Historical Historical Vital Signs Acute Vital Signs Vital Response Date/Time Temperature (Fahrenheit) 98.5 12/18/2015 1:23am Pulse 64 bpm 12/18/2015 1:23am Respirations 16 12/18/2015 1:23am Height 5 ft 3 in Weight 140 lb Body Mass Index 24.0 kg/m^2 Results No known relevant diagnostic tests, laboratory data and/or discharge summary. Procedures No known history of procedures. Encounters Encounter Location Arrival/Admit Date Discharge/Depart Date Attending Provider Departed [facility] 12/17/15 11:37pm 12/18/15 1:20am [facility] GRUPO Hernandez MD Recent Diagnosis
--- OUTSIDE RECORDS SUMMARY | 2018-01-26 15:49 | External Medical Summary | Summary of Care ---
[...] Status: Active Constipation (564.00, K59.00) Status: Active Encounter for nursing home current use of dapsone (V58.69, Z79.899) Status: Active Chronic obstructive pulmonary disease (496, J44.9) Status: Active Hypothyroidism (244.9, E03.9) Status: Active Lichen planus (697.0, L43.9) Status: Active Anemia (285.9, D64.9) Status: Active Anxiety (300.00, F41.9) Status: Active Depression (311, F32.9) Status: Active [...] 0 Gino Saunders M.D. Start 15-Jan-2016 Active [place]'s Mouth Rinse 2 tsp swish and spit [...] Start 26-Apr-2016 Active 238 GM Bottle Nystatin 431223 UNIT/ML Mouth/Throat Suspension Swish and swallow 10 [...] 7 PM. Quantity: 90 Refills: 2 Nicky Whitman Gino Start 01-Jan-2013 Active Dapsone 25 MG Oral Tablet TAKE 2 TABLETS BY MOUTH EVERY DAY CALL TO RE-ORDER Quantity: 60 Refills: 0 Carmina Whitman Dario Start 27-Sep-2016 Active Breo Ellipta 100-25 MCG/INH Inhalation Aerosol Powder Breath Activated USE 1 INHALATION ONCE DAILY. Quantity: 1 Refills: 6 Nicky Whitman Gino Start 11-Apr-2016 Active 60 Aerosol Powder Breath Activated Disp Pack Endocet 7.5-325 MG Oral Tablet 1 tablet every 6 hours Quantity: 120 Refills: 0 Nicky Whitman Gino [...] of Open Fracture Reduction History of Cholecystectomy BASIC METABOLIC PROFILE 1210 Ordered: 19-Oct-2016 CBC w/ Auto Diff 7150 Ordered: 19-Oct-2016 THYROID STIM. HORMONE 3602 Ordered: 19-Oct-2016 Immunization Name Dates Details Pneumo (Pneumovax) on: 22-May-2006 Influenza on: 15-Jun-2007 Fluzone INJ on: 19-May-2009 Influenza A (H1N1) Monoval Vac SUSP on: 31-Jul-2009 Influenza on: 26-May-2010 Pneumovax 23 25 MCG/0.5ML Injection Injectable on: Lot #: [id number] Influenza Comments: 06/25/08 @ [place] Family History Unknown Family Member Name Dates [...] smoker Vital Signs Date Test Result Details 19-Oct-2016 09:59 BP Systolic 130 mm[Hg] Status: [...] low Range: >60 threshold) EST GFR, NON-AFR IVORIAN 45 ml/min (Below low Range: >60 threshold) [...] mm/60 min. (Above high threshold) Range: 0-20 -Oct-2016 16:03 CBC w/ Auto Diff 7150 WBC [...] low Range: >60 threshold) EST GFR, NON-AFR IVORIAN 46 ml/min (Below low Range: >60 threshold) [...] 11:00 Appointment; Provider: Gino Saunders M.D. On 15-Nov-2016 11:00 Interventions Provided Medication ChangesEndocet 7.5-325 MG Oral Tablet - Renew with ChangesFentaNYL 75 MCG/HR Transdermal Patch 72 Hour - RenewLabs/Procedures/ImagingBASIC METABOLIC PROFILE 1210; To be Done: 19 Oct 2016CBC w/ Auto Diff 7150; To be Done : 19 Oct 2016THYROID STIM. HORMONE 3602; To be Done: 19 Oct 2016 Instructions Name Dates Details Instructions not documented Encounters Appointment; Dario Grewal M.D. On 17-Oct-2016 Encounter [...]
--- OUTSIDE RECORDS SUMMARY | 2018-01-26 15:50 | External Medical Summary | Summary of Care ---
[...] 0 Gino Saunders M.D. Start 15-Jan-2016 Active [place]'s Mouth Rinse 2 tsp swish and spit [...] smoker Vital Signs Date Test Result Details 04-Jul-2016 11:51 BP Systolic 118 mm[Hg] Status: [...] [place] On 05-Jul-2016 13:00 Interventions Provided Medication ChangesPolyethylene Glycol 3350 Oral Powder - Renew Instructions Name Dates Details Instructions not documented Encounters Appointment; Gino Saunders M.D. On 22-Jun-2016 Encounter Diagnosis: Problem not documented 11:00 Appointment; Gino Saunders M.D. On 23-May-2016 Encounter Diagnosis: Problem not documented 10:30 Appointment; Sean Ballesteros M.D. On 18-May-2016 Encounter Diagnosis: Problem not documented 09:45 Appointment; Gino Saunders M.D. On 20-Apr-2016 Encounter Diagnosis: Problem not documented 10:45 Appointment; Gion Saunders M.D. On 13-Apr-2016 Encounter Diagnosis: Problem [...]
--- OUTSIDE RECORDS SUMMARY | 2018-01-26 15:50 | External Medical Summary | Summary of Care ---
[...] 0 Gino Saunders M.D. Start 15-Jan-2016 Active [place]'s Mouth Rinse 2 tsp swish and spit [...] Lot #: [id number] Influenza Comments: 06/25/08 @ [place] Family History Mother Name Dates Details Family [...] Encounter Diagnosis: Problem not documented 10:45 Appointment; Reeys English M.D. On 13-Oct-2014 Encounter Diagnosis: Problem not documented 10:45 Appointment; Reyes English M.D. On 01-Sep-2014 Encounter Diagnosis: Problem not documented 11:15 Appointment; Reyes English M.D. On 13-Aug-2014 Encounter Diagnosis: Problem not documented 11:15
--- OUTSIDE RECORDS SUMMARY | 2018-01-26 15:50 | External Medical Summary | Summary of Care ---
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 Quantity: 1 Refills: 5 [place] M.D., Gino Start 11-Apr-2016 Active 3 ML Plas Cont (60 Plas Conts) Nystatin Powder USE DIRECTED. Quantity: 3 Refills: 3 Gion Saunders M.D. Start 20-Apr-2016 Active Fish Oil 1000 MG Oral Capsule TAKE 1 CAPSULE DAILY. Refills: 0 Gino Saunders M.D. Start 15-Jan-2016 Active Polyethylene Glycol 3350 Oral Powder MIX 1 CAPFUL (17GM) IN 8 OUNCES OF WATER, JUICE, OR TEA AND DRINK DAILY. Quantity: 1 Refills: 11 Gino Saunders M.D. Start 26-Apr-2016 Active 238 GM Bottle Nystatin 042906 UNIT/ML Mouth/Throat Suspension Swish and swallow 10 [...] 0 Gino Saunders M.D. Start 14-Dec-2016 Active LORazepam 0.5 MG Oral Tablet What [...] Cholecystectomy Drug Screen Pain Management 8400 Ordered: Immunization Name Dates Details Pneumo (Pneumovax) on: 22-May-2006 Influenza on: 15-Jun-2007 Fluzone INJ on: 19-May-2009 Influenza A (H1N1) Monoval Vac SUSP on: 31-Jul-2009 Influenza on: 26-May-2010 Pneumovax 23 25 MCG/0.5ML Injection Injectable on: Lot #: [id number] Influenza Comments: 06/25/08 @ [place] Family History Unknown Family Member Name Dates [...] smoker Vital Signs Date Test Result Details 11:09 BP Systolic 128 mm[Hg] Status: Comments: Location: ; Position: BP Diastolic 70 mm[Hg] Status: Comments: Location: ; Position: Temperature 97.7 f Status: Comments: Method: Heart Rate 87 /min Status: Comments: Location: ; Weight 146 lb Status: Physical Findings 97 Status: Comments: O2 Saturation Body Mass Index Calculated 25.86 kg/m2 Status: Body Surface Area Calculated 1.69 m2 Status: Results Date Description Value Details Results not documented Plan of Care Name Dates Details Planned Observations Planned Goals not documented Planned Encounters Appointment; Provider: Gino Saunders M.D. On 21-Apr-2017 11:00 Interventions Provided Medication ChangesEndocet 7.5-325 MG Oral Tablet - RenewFentaNYL 75 MCG/HR Transdermal Patch 72 Hour - RenewLabs/Procedures/ImagingDrug Screen Pain Management 8400; To be Done: 21 Mar 2017 Instructions Name Dates Details Instructions not documented [...]
--- OUTSIDE RECORDS SUMMARY | 2018-01-26 15:50 | External Medical Summary | Summary of Care ---
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 Quantity: 360 Refills: 2 [place] M.Swapnil, Gino Start 15-Jan-2016 Active Escitalopram Oxalate 20 MG Oral Tablet TAKE 1 AND 1/2 TABLETS DAILY. Quantity: 4 Refills: 0 Gino Saunders M.D. Start 14-Dec-2016 Active Endocet 7.5-325 MG Oral Tablet 1 tablet every 6 hours Quantity: 120 Refills: 0 Gino Saunders M.D. Start 15-Apr-2016 Active Ondansetron HCl - 4 MG Oral Tablet take 1 po Q am PRN Quantity: 30 Refills: 2 [place] M.DYolanda, Gino Start 15-Jan-2016 Active FentaNYL 75 MCG/HR [...]
--- NOTE | 2018-01-26 16:00 | XRay Report ---
Indication: med. clearance. PROCEDURE: XR chest 1V: Encounter: Initial Comparison: None Findings: Emphysema. No focal pneumonia. No pleural effusion or pneumothorax. Cardiac silhouette is upper limits of normal. Mediastinal contours and pulmonary vascularity are within normal limits. Cervical spine hardware. Impression: No acute cardiopulmonary disease. Emphysema. .
[2018-01-26] MEDS ORDERED: HALOPERIDOL 5 MG/ML INJECTION IM PRN (18:36)
[2018-01-26] MEDS ORDERED: LORazepam 0.5 MG TABLET PO PRN (18:36)
[2018-01-26] MEDS ORDERED: HALOPERIDOL 0.5 MG TABLET PO PRN (18:36)
[2018-01-26] MEDS ORDERED: POLYMYXIN B TP PRN (18:41)
[2018-01-26] MEDS ORDERED: NEOMYCIN TP PRN (18:41)
[2018-01-26] MEDS ORDERED: PRAMOXINE TP PRN (18:41)
[2018-01-26] MEDS ORDERED: BENZOCAINE 20% ORAL GEL (Max Strength) MM PRN (18:41)
[2018-01-26] MEDS ORDERED: IBUPROFEN 400 MG TABLET PO PRN (18:41)
[2018-01-26] MEDS ORDERED: ALBUTEROL 2.5mg/3ml (0.083%) NEB AEROSOL PRN (18:41)
[2018-01-26] MEDS ORDERED: SALINE 0.65% NASAL SPRAY 44 ML BOTTLE EA NOSTRIL PRN (18:41)
[2018-01-26] MEDS ORDERED: BACITRACIN TP PRN (18:41)
[2018-01-26] MEDS: REFRESH CELLUVISC 1% Eye Drops 0.4ml EACH EYE SCH (20:23)
[2018-01-26] MEDS: CLOTRIMAZOLE/BETAMETHASONE CREAM 15gm TOP SCH (20:23)
[2018-01-26] MEDS: HYDROCORTISONE 1% CREAM 28.35gm TOP SCH (20:24)
[2018-01-26] MEDS: LORazepam 1 MG TABLET PO SCH (20:24)
[2018-01-26] MEDS: ONDANSETRON ODT 4 MG TABLET PO SCH (20:25)
[2018-01-26] MEDS: MIRTAZAPINE 45 MG TABLET PO SCH (20:25)
[2018-01-26] MEDS: OXYCODONE/APAP 7.5 MG/325 MG TABLET PO SCH (20:25)
[2018-01-26] MEDS: LUBIPROSTONE 24 MCG CAPSULE PO SCH (20:25)
[2018-01-26] MEDS: SENNOSIDES 8.6 MG TABLET PO SCH (20:26)
[2018-01-26] MEDS: REFRESH CLASSIC Eye Drops 0.4ml EACH EYE SCH (20:26)
[2018-01-26] MEDS: ALBUTEROL 2.5mg/3ml (0.083%) NEB AEROSOL SCH (20:36)
[2018-01-26] MEDS: CAMPHOR TOP PRN (22:52)
[2018-01-26] MEDS: MENTHOL TOP PRN (22:52)
[2018-01-26 23:17] VITALS: BMI 26.5
[2018-01-27] MEDS: BETAMETHASONE DIP 0.05% TOP SCH ×3 (07:45→20:22)
[2018-01-27] MEDS ORDERED: FLUTICASONE/VILANTEROL 100/25mcg INHALER ORAL INH SCH (09:00)
[2018-01-27] MEDS: LEVOTHYROXINE 100 MCG TABLET PO SCH (09:21)
[2018-01-27] MEDS: FUROSEMIDE 40 MG TABLET PO SCH (09:21)
[2018-01-27] MEDS: LISINOPRIL 10 MG TABLET PO SCH (09:21)
[2018-01-27] MEDS: ONDANSETRON ODT 4 MG TABLET PO SCH ×2 (09:22→20:18)
[2018-01-27] MEDS: OXYCODONE/APAP 7.5 MG/325 MG TABLET PO SCH ×4 (09:22→20:18)
[2018-01-27] MEDS: LORazepam 1 MG TABLET PO SCH ×3 (09:22→20:16)
[2018-01-27] MEDS: SENNOSIDES 8.6 MG TABLET PO SCH ×2 (09:22→20:19)
[2018-01-27] MEDS: ASPIRIN 81 MG CHEWABLE TABLET PO SCH (09:23)
[2018-01-27] MEDS: REFRESH CLASSIC Eye Drops 0.4ml EACH EYE SCH ×3 (09:25→20:19)
[2018-01-27] MEDS: POLYETHYL GLYCOL 3350 17gm PACKET PO SCH (09:25)
[2018-01-27] MEDS: MELOXICAM 7.5 MG TABLET PO SCH (09:26)
[2018-01-27] MEDS: MULTI-VITAMIN + MINERAL TABLET PO SCH (09:26)
[2018-01-27] MEDS: CYANOCOBALAMIN (B-12) 500mcg TABLET PO SCH (09:27)
[2018-01-27] MEDS: NALOXEGOL 12.5 MG TABLET PO SCH (09:28)
[2018-01-27] MEDS: DAPSONE 100 MG TABLET PO SCH (09:29)
[2018-01-27] MEDS: OMEGA-3 ACID ESTERS 1 GM CAPSULE PO SCH (09:29)
[2018-01-27] MEDS: BUDESONIDE INH.SOLN 0.25mg/2ml NEB AEROSOL SCH ×2 (09:30→19:40)
[2018-01-27] MEDS: LUBIPROSTONE 24 MCG CAPSULE PO SCH ×2 (09:30→20:17)
[2018-01-27] MEDS: ARFORMOTEROL NEB 15mcg/2ml AEROSOL SCH ×2 (09:30→19:55)
--- NOTE | 2018-01-27 10:42 | History & Physical Report ---
History of Present Illness Date: 01/27/18 Chief complaint: severe anxiety, depression HPI: Orvalene "Aleksandra Morris is a pleasant 72-year-old female patient of Dr. Darvin Saunders who currently resides at [facility]. She reports that for over 3 years, she has been on ativan for her anxiety. Recently she has had increased anxiety which required her to have her ativan dose increased. She admits to occasional panic attacks. She is concerned that she is taking too much ativan and is wanting to "come off" the ativan. She presented to [facility] ED on 01/26/18 and was accepted to the [facility] for further psychiatric evaluation and treatment. Evaluation in the ED was relatively unremarkable with the exception of chronic, mild anemia (hgb 11.7) and mild hypernatremia (Na 146). UA revealed 3-5 WBC with 5-10 epithelial cells and 1+ bacteria with culture pending. She is seen this morning while sitting in the day room, watching TV. She reports that she feels anxious currently but denies any other complaints or concerns. No recent illness, fevers, chills, chest pain, shortness of breath, abdominal pain, nausea, vomiting or dysuria. Her appetite remains stable but no bowel movement in 1-2 days. She reports that her anxiety has gradually worsened and denies any known exacerbating or remitting factors. She has a history of COPD and uses 2L oxygen chronically at night. Review of Systems All systems PM: 10-point ROS was reviewed, no additional remarkable complaints except - Constitutional Constitutional: Absent: anorexia, chills, fatigue, fever(s), headache(s), malaise, weakness - EENMT Eyes: Present: dry eye (chronic). Absent: change in vision, photophobia Ears: Absent: ear pain Balance: Absent: falling to one side Nose: Absent: nosebleeds Mouth/Throat: Absent: sore throat, changes in swallowing - Cardiovascular Cardiovascular: Present: dyspnea on exertion (chronic). Absent: chest pain, palpitations, syncope, orthopnea, edema Rhythm: Present: regular rhythm Vascular: Absent: pallor of an extermity, pedal edema, unilateral swelling - Respiratory Respiratory: Present: dyspnea on exertion. Absent: cough, dyspnea, hemoptysis, wheezing, pain on inspiration, chest congestion - Gastrointestinal Gastrointestinal: Present: constipation. Absent: abdominal pain, melena, nausea , vomiting - Genitourinary Genitourinary: Absent: dysuria, flank pain, hematuria Menstruation: post menopausal - Musculoskeletal Musculoskeletal: Present: abnormal gait (uses walker), back pain (chronic). Absent: deformity - Integumentary/Breasts Integumentary: Absent: rash - Neurological Neurological: Absent: confusion, dizziness, headache(s), weakness - Psychiatric Psychiatric: Present: abnormal sleep pattern, anxiety, depression, panic attacks - Endocrine Endocrine: Absent: flushing, palpitations - Hematologic/Lymphatic Hematologic/Lymphatic: Absent: easy bruising - Allergic/Immunologic Allergic/Immunologic: Present: seasonal rhinorrhea Past Medical History Medical History Updates: History of CVA. Dry eyes. Allergic rhinitis. CHF. CAD. COPD. Chronic night oxygen at 2L. Constipation. Anemia. Depression. Anxiety with panic attacks. History of alcohol dependence. Hypothyroidism. B12 deficiency. Insomnia. Hypertension. Macular degeneration. Chronic pain. Chronic back pain. Surgical History: Multiple orthopedic surgeries. Family History Updates: Mother - , age 48, fire. Father - , age 43, [place], CAD, hypertension. Family History: As Above - Social History Smoking status: Former smoker (quit 1998) Packs per day: 2 Packs-years: 30 Substance use type: does not use Alcohol intake: former (quit 1989) Housing: assisted living facility Household members: none Current occupational status: retired Current residence: Assisted Living ([facility]) Social history: PCP - Dr. Darvin Saunders. Medications Home Medications Medication Instructions Recorded Confirmed Type Acetaminophen [Pain Relief] 500 mg PO Q6H PRN 01/26/18 01/26/18 History Albuterol HFA Inhaler [Ventolin 1 puff ORAL INH Q6H PRN 01/26/18 01/26/18 History Hfa 90 mcg/actuation] Albuterol HFA Inhaler [Ventolin 2 puff ORAL INH BID 01/26/18 01/26/18 History Hfa 90 mcg/actuation] Albuterol Sulfate 2.5 mg AEROSOL Q4H PRN 01/26/18 01/26/18 History Albuterol Sulfate [Proair Hfa] 1 puff INH Q4H PRN 01/26/18 01/26/18 History Aspirin 81 mg PO DAILY 01/26/18 01/26/18 History Benzocaine [Anbesol] 1 applicatio MM PRN PRN 01/26/18 01/26/18 History Betamethasone/Propylene Glyc 1 applicatio TP BID 01/26/18 01/26/18 History [Betamethasone Dp Aug 0.05% Crm] Biotin 10 mg PO DAILY 01/26/18 01/26/18 History Capsaicin/Menthol [Capzasin Quick 1 applicatio TP Q6H PRN 01/26/18 01/26/18 History Relief Gel] Cholecalciferol (Vitamin D3) 4,000 unit PO DAILY 01/26/18 01/26/18 History [Vitamin D3] Clotrimazole/Betamethasone 1 applicatio TOP BID 01/26/18 01/26/18 History [Lotrisone Cream] Cyanocobalamin (Vitamin B-12) 1,000 mcg PO DAILY 01/26/18 01/26/18 History [Vitamin B-12] Dapsone [Dapsone] 25 mg PO DAILY 01/26/18 01/26/18 History FentaNYL PATCH [Duragesic Patch] 75 mcg TD Q72H 01/26/18 01/26/18 History Fluticasone/Vilanterol Inhaler 1 puff INH DAILY 01/26/18 01/26/18 History [Breo Ellipta 100-25 mcg Inhaler] Furosemide [Lasix 40 mg Tab] 40 mg PO DAILY 01/26/18 01/26/18 History Halobetasol Propionate [Ultravate] 1 applicatio TOP BID 01/26/18 01/26/18 History Hydrocortisone 1% Cream 1 applicatio TOP BID 01/26/18 01/26/18 History [Cortizone-10 Cream] Ibuprofen 400 mg PO Q8H PRN 01/26/18 01/26/18 History LORazepam [Lorazepam] 1 mg PO BID 01/26/18 01/26/18 History Levothyroxine Sodium 100 mcg PO DAILY 01/26/18 01/26/18 History Lisinopril [Prinivil] 10 mg PO DAILY 01/26/18 01/26/18 History Lubiprostone [Amitiza] 24 mcg PO BID 01/26/18 01/26/18 History Magnesium Hydroxide [Milk of 30 ml PO DAILY PRN 01/26/18 01/26/18 History Magnesia] Meloxicam [Meloxicam] 7.5 mg PO DAILY 01/26/18 01/26/18 History Menthol [Biofreeze] 1 applicatio TP Q12H PRN 01/26/18 01/26/18 History Metoclopramide [Reglan] 5 mg PO DAILY 01/26/18 01/26/18 History Mirtazapine [Remeron] 45 mg PO HS 01/26/18 01/26/18 History Multivit-Min/FA/Lycopen/Lutein 1 tab PO DAILY 01/26/18 01/26/18 History [Centrum Silver Tablet] Naloxegol Oxalate [Movantik] 25 mg PO DAILY 01/26/18 01/26/18 History Neomycn/Bacitrc/Polymyx/Pramox 1 applicatio TP BID PRN 01/26/18 01/26/18 History [Neosporin + Pain Relief Oint] Nortriptyline [Pamelor] 25 mg PO HS 01/26/18 01/26/18 History Nystatin [Nystop] 1 applicatio TOP PRN PRN 01/26/18 01/26/18 History [place]-3/Dha/Epa/Fish Oil [Fish Oil 1,000 mg PO DAILY 01/26/18 01/26/18 History 1,000 mg Softgel] Ondansetron Odt [Zofran Odt Tablet] 4 mg PO BID 01/26/18 01/26/18 History Oxycodone HCl/Acetaminophen 1 tab PO QID 01/26/18 01/26/18 History [Endocet 7.5-325 mg Tablet] Peg 3350 238 G Bottle [Miralax] 17 gm PO DAILY 01/26/18 01/26/18 History Petrolatum,White [Vaseline] 1 applicatio TP BID 01/26/18 01/26/18 History Polyvinyl Alcohol [Artificial 1 drop EACH EYE TID 01/26/18 01/26/18 History Tears] Promethazine Plain Liq [Phenergan 6.25 - 12.5 mg PO Q4H PRN 01/26/18 01/26/18 History Elixir] Propylene Glycol [Lubricant Eye 1 applicatio EACH EYE HS 01/26/18 01/26/18 History Drops] Saline 0.65% Nasal [place] [Deep Sea 2 spray EA NOSTRIL PRN PRN 01/26/18 01/26/18 History Nasal Moisturizing [place]] Sennosides [Senna] 8.6 mg PO BID 01/26/18 01/26/18 History Trolamine Salicylate/Aloe Vera 1 applicatio TP Q4H PRN 01/26/18 01/26/18 History [Aspercreme 10% Cream] Umeclidinium [place] [Incruse 1 puff IH DAILY 01/26/18 01/26/18 History Ellipta] Vit C/E/Zn/Coppr/Lutein/Zeaxan 1 cap PO BID 01/26/18 01/26/18 History [Preservision Areds 2 Softgel] Vortioxetine [Trintellix] 10 mg PO PM 01/26/18 01/26/18 History Allergies Allergy/AdvReac Type Severity Reaction Status Date / Time aspirin Allergy Verified 01/26/18 15:55 azithromycin Allergy Verified 01/26/18 15:55 erythromycin base Allergy Verified 01/26/18 15:55 iron Allergy Verified 01/26/18 15:55 Exam Vital Signs: Temperature 97.7 F 01/27/18 08:00 Pulse Rate 84 01/27/18 08:00 Respiratory Rate 20 01/27/18 09:30 Blood Pressure 125/73 01/27/18 08:00 Pulse Oximetry 97 01/27/18 09:30 Height/Weight/BMI: Height 5 ft 3 in Weight 149 lb 11.102 oz Body Mass Index 26.5 Comments: sitting in day room, watching TV. - Constitutional Present: no acute distress, well nourished, well developed, cooperative - Routine HEENT Exam Head: Present: normocephalic, atraumatic Eye: Present: PERRL. Absent: conjunctival icterus ENT: Present: mucous membranes moist - Routine Neck Exam Present: supple, full ROM, trachea midline - Routine Chest/Breast/Axilla Exam Chest wall: Absent: pacemaker - Routine Respiratory Exam Present: decreased breath sounds, CTA bilaterally. Absent: respiratory distress , wheezes - Routine Cardiovascular Exam Present: RRR, S1, S2 - Routine Abdominal Exam Present: soft, normoactive bowel sounds, non distended, non tender - Routine Extremities Exam Present: no edema, full ROM, pulses intact - Routine Back/Spine/Pelvis Exam Back/Spine: Present: full ROM, kyphosis - Routine Skin Exam Present: intact, dry, warm Comments: Afebrile. - Routine Neurological Exam Present: alert, oriented X3, moving all extremities, hearing grossly intact, normal speech - Routine Psychiatric Exam Present: normal affect, cooperative Results - Labs CBC & Chem 7: 01/26/18 15:49 01/26/18 15:49 Microbiology Results: Microbiology 01/26/18 22:03 Urine, Voided (Cc/notcc) Urine Culture - Preliminary Culture Initiated - Results Pending Assessment and Plan Assessment and Plan: Assessment: Severe anxiety with reported panic attacks (POA). Benzo dependency (POA). Hypernatremia - NA 146 (POA). CHF. CAD. COPD. Chronic night oxygen at 2L. Constipation. Anemia. Depression. Hypothyroidism. B12 deficiency. Insomnia. Hypertension. Macular degeneration. Chronic pain. Chronic back pain. Dry eyes. Allergic rhinitis. History of CVA. History of alcohol dependence. Plan - 01/27/18: Agree with admission to [facility] under the care of the psychiatric team for further evaluation and treatment. Hospitalist service consulted for medical management. Labs obtained in ED revealed mild hypernatremia (Na 146). Encourage oral intake. Will recheck on 01/29/18. Chronic anemia with history of B12 deficiency. Hgb stable (Hgb 11.7). Will check B12 level. Continue home medications. 2L oxygen at night baseline. Will complete [facility] admission work up - obtain B12, TSH, folate. Provide safe and supportive environment. Upon discharge, patient's care will be returned to her PCP, Dr. Saunders. Resuscitation Status: Full Code - Time spent with patient Time with patient PN: 50 minutes - Physician Narrative Physician: other (Dr. Thomas) Narrative: Date: 01/27/18 Time: 1432 Pt reports being a bit anxious, medically stable, will follow along with psych for medical management. Lungs CTAB. Hospital Course Summary Disclaimer: The visit summary below is not to be considered part of the above Progress Note. Hospital Course: Plan - 01/27/18: Agree with admission to [facility] under the care of the psychiatric team for further evaluation and treatment. Hospitalist service consulted for medical management. Labs obtained in ED revealed mild hypernatremia (Na 146). Encourage oral intake. Will recheck on 01/29/18. Chronic anemia with history of B12 deficiency. Hgb stable (Hgb 11.7). Will check B12 level. Continue home medications. 2L oxygen at night baseline. Will complete [facility] admission work up - obtain B12, TSH, folate. Provide safe and supportive environment. Upon discharge, patient's care will be returned to her PCP, Dr. Saunders.
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
[2018-01-27] MEDS: ALBUTEROL 2.5mg/3ml (0.083%) NEB AEROSOL SCH ×2 (11:30→19:40)
[2018-01-27] MEDS: CLOTRIMAZOLE/BETAMETHASONE CREAM 15gm TOP SCH ×2 (12:47→20:22)
[2018-01-27] MEDS: HYDROCORTISONE 1% CREAM 28.35gm TOP SCH ×2 (12:47→20:22)
[2018-01-27] MEDS: BIOTIN 10 MG PO SCH (12:48)
[2018-01-27] MEDS: REFRESH CELLUVISC 1% Eye Drops 0.4ml EACH EYE SCH (20:15)
[2018-01-27] MEDS: MIRTAZAPINE 45 MG TABLET PO SCH (20:17)
[2018-01-27] MEDS: MENTHOL TOP PRN (20:26)
[2018-01-27] MEDS: CAMPHOR TOP PRN (20:26)
[2018-01-28] MEDS: MENTHOL TOP PRN ×2 (00:01→20:36)
[2018-01-28] MEDS: CAMPHOR TOP PRN ×2 (00:01→20:36)
[2018-01-28] MEDS: ARFORMOTEROL NEB 15mcg/2ml AEROSOL SCH ×2 (07:15→20:10)
[2018-01-28] MEDS: BUDESONIDE INH.SOLN 0.25mg/2ml NEB AEROSOL SCH ×2 (07:15→19:40)
--- NOTE | 2018-01-28 08:58 | Neuropsych Progress Note ---
[facility] Subjective Date: 01/28/18 - Sujective/Severity of Illness Medications: Albuterol Sulfate (Proventil Neb (0.083%)) 2.5 mg AEROSOL Q4H PRN PRN Reason: Shortness of air/wheezing Albuterol Sulfate (Proventil Neb (0.083%)) 2.5 mg AEROSOL BID [facility] Last Admin: 01/27/18 19:40 Dose: 2.5 mg Arformoterol Tartrate (Brovana Neb) 15 mcg AEROSOL RTBID [facility] Last Admin: 01/28/18 07:15 Dose: 15 mcg Artificial Tears (Refresh Classic) 1 drop EACH EYE TID [facility] Last Admin: 01/27/18 20:19 Dose: 1 drop Artificial Tears (Refresh Celluvisc) 1 drop EACH EYE HS [facility] Last Admin: 01/27/18 20:15 Dose: 1 drop Aspirin (Asa) 81 mg PO DAILY [facility] Last Admin: 01/27/18 09:23 Dose: 81 mg Benzocaine (Orajel) 1 applic MM PRN PRN PRN Reason: PRN orders Betamethasone Dipropionate (Diprolene) 1 applic TOP BID [facility] Last Admin: 01/27/18 20:22 Dose: 1 applic Betamethasone/Clotrimazole (Lotrisone Cream) 1 applic TOP BID [facility] Last Admin: 01/27/18 20:22 Dose: 1 applic Budesonide (Pulmicort Inhalation) 0.25 mg AEROSOL RTBID [facility] Last Admin: 01/28/18 07:15 Dose: 0.25 mg Camphor/Menthol/Phenol (Mentholatum Original Ointment) 1 applic TOP Q12H PRN Last Admin: 01/28/18 00:01 Dose: 1 applic Cholecalciferol (Vit. D-3) 4,000 unit PO DAILY [facility] Last Admin: 01/27/18 09:26 Dose: 4,000 unit Cyanocobalamin (Vit. B-12) 1,000 mcg PO DAILY [facility] Last Admin: 01/27/18 09:27 Dose: 1,000 mcg Dapsone (Aczone) 25 mg PO DAILY [facility] Last Admin: 01/27/18 09:29 Dose: 25 mg Fentanyl (Duragesic Patch) 75 mcg TD Q72H [facility] Last Admin: 01/26/18 20:22 Dose: 75 mcg Furosemide (Lasix 40 Mg Tab) 40 mg PO DAILY [facility] Last Admin: 01/27/18 09:21 Dose: 40 mg Haloperidol (Haldol) 0.5 mg PO Q6H PRN PRN Reason: Extreme agitation Haloperidol Lactate (Haldol) 0.5 mg IM Q6H PRN PRN Reason: Extreme agitation Hydrocortisone (Cortizone-10 Cream) 1 applic TOP BID [facility] Last Admin: 01/27/18 20:22 Dose: 1 applic Ibuprofen (Motrin) 400 mg PO Q8H PRN PRN Reason: Pain Levothyroxine Sodium (Synthroid) 100 mcg PO ACB [facility] Last Admin: 01/27/18 09:21 Dose: 100 mcg Lisinopril (Prinivil) 10 mg PO DAILY [facility] Last Admin: 01/27/18 09:21 Dose: 10 mg Lorazepam (Ativan) 0.5 mg PO Q6H PRN PRN Reason: Extreme agitation Lorazepam (Ativan Inj) 0.5 mg IM Q6H PRN PRN Reason: Extreme agitation Lorazepam (Ativan) 0.5 mg PO TID [facility] Last Admin: 01/27/18 20:16 Dose: 0.5 mg Lubiprostone (Amitiza) 24 mcg PO BID [facility] Last Admin: 01/27/18 20:17 Dose: 24 mcg Magnesium Hydroxide (Mom) 30 ml PO DAILY PRN PRN Reason: Constipation Meloxicam (Mobic) 7.5 mg PO DAILY [facility] Last Admin: 01/27/18 09:26 Dose: 7.5 mg Mirtazapine (Remeron) 45 mg PO HS [facility] Last Admin: 01/27/18 20:17 Dose: 45 mg Multivitamins/Minerals (Therapeutic - M) 1 tab PO DAILY [facility] Last Admin: 01/27/18 09:26 Dose: 1 tab Naloxegol (Movantik) 25 mg PO DAILY [facility] Last Admin: 01/27/18 09:28 Dose: 25 mg Neomycin/Polymyxin/Bacitr/Pramoxine (Neosporin Plus) 1 applic TP BID PRN PRN Reason: PRN orders Non-Formulary Medication (Biotin [Biotin]) 10 mg PO DAILY [facility] Last Admin: 01/27/18 12:48 Dose: Not Given Nystatin (Mycostatin) 1 applic TP PRN PRN Last Admin: 01/26/18 21:59 Dose: 1 applic Iikgs-1-Axrr Ethyl Esters (Lovaza) 1 gm PO DAILY [facility] Last Admin: 01/27/18 09:29 Dose: 1 gm Ondansetron HCl (Zofran Odt Tablet) 4 mg PO BID [facility] Last Admin: 01/27/18 20:18 Dose: 4 mg Oxycodone/Acetaminophen (Percocet 7.5/325) 1 tab PO QID [facility] Last Admin: 01/27/18 20:18 Dose: 1 tab Polyethylene Glycol (Miralax) 17 gm PO DAILY [facility] Last Admin: 01/27/18 09:25 Dose: 17 gm Senna (Senna Lax) 8.6 mg PO BID [facility] Last Admin: 01/27/18 20:19 Dose: 8.6 mg Sodium Chloride (Deep Sea Nasal Moisturizing [place]) 2 spray EA NOSTRIL PRN PRN PRN Reason: Dry nasal passages Vortioxetine (Trintellix) 10 mg PO DAILY [facility] Subjective: Pt seen and chart examined. Nursing reports pt is doing well. Some anxiety at times. Sleeping and eating well. On face to face the pt states her depression is mild. She reports she has some anxiety at times. Tolerating decrease in Ativan. Denies S/I. Tolerating meds Start Time: 08:30 Stop Time: 08:45 Mental Status Exam Vitals: Last Vital Signs Temp 98.7 F 01/27/18 19:50 Pulse 75 01/27/18 19:50 Resp 14 01/28/18 07:15 BP 119/59 01/27/18 19:50 Pulse Ox 96 01/28/18 07:15 Height: 1.6 m Weight: 67.9 kg - Mental Status Exam Muscle Strength/Tone: Normal Dressing: Casual Grooming: Good Attitude: Cooperative Motor Activity: Normal Eye Contact: Good Speech: Normal Volume: Normal Rhythm: Appropriate Rhythm Orientation: Oriented X4 Mood: Depressed Rate of Thoughts: Appropriate Rate Thought Organization: Organized Associations: Intact Abstract Reasoning: Intact, able to abstract Thought Content: Hopelessness Perception/Psychotic: Perception Normal Language: Naming Intact Fund of Knowledge: Appropriate Memory: Grossly Intact Suicidal Ideation: None Homicidal Ideation: None Insight: Fair Judgement: Fair Impulse Control: Fair - Laboratory Result Diagrams: 01/28/18 08:12 01/28/18 08:12 Laboratory Results - last 24 hr 01/28/18 01/28/18 08:12 08:12 WBC 7.1 RBC 3.69 L Hgb 11.2 L Hct 35.2 L MCV 95.4 MCH 30.4 MCHC 31.8 RDW Std Deviation 41.4 Plt Count 307 MPV 8.9 L Immature Gran % (Auto) 0.1 Neut % (Auto) 55.5 Lymph % (Auto) 34.3 [place] % (Auto) 6.3 Eos % (Auto) 3.2 Baso % (Auto) 0.6 Neut # (Auto) 3.9 Lymph # (Auto) 2.4 [place] # (Auto) 0.5 Eos # (Auto) 0.2 Baso # (Auto) 0.0 Abs Immat Gran (auto) 0.01 Turbidity < 20 Sodium 145 H Potassium 4.1 Chloride 108 H Carbon Dioxide 27 Anion Gap 10 BUN 17.0 Creatinine 1.0 GFR Calculation 54 BUN/Creatinine Ratio 17 Glucose 98 Calculated Osmolality 281 H Calcium 8.5 Icterus Index < 2 Specimen Hemolysis < 15 Assessment and Plan (1) MDD (major depressive disorder), recurrent severe, without psychosis Current visit: Yes Status: Acute (2) SHELTON (generalized anxiety disorder) Current visit: Yes Status: Acute Hospital Course Summary Disclaimer: The visit summary below is not to be considered part of the above Progress Note. Hospital Course: Plan - 01/27/18: Agree with admission to [facility] unit under the care of the psychiatric team for further evaluation and treatment. Hospitalist service consulted for medical management. Labs obtained in ED revealed mild hypernatremia (Na 146). Encourage oral intake. Will recheck on 01/29/18. Chronic anemia with history of B12 deficiency. Hgb stable (Hgb 11.7). Will check B12 level. Continue home medications. 2L oxygen at night baseline. Will complete [facility] admission work up - obtain B12, TSH, folate. Provide safe and supportive environment. Upon discharge, patient's care will be returned to her PCP, Dr. Saunders. 01/28/18 Psych note Pt is doing fairly well.
[2018-01-28] MEDS: LEVOTHYROXINE 100 MCG TABLET PO SCH (09:19)
[2018-01-28] MEDS: NALOXEGOL 12.5 MG TABLET PO SCH (09:20)
[2018-01-28] MEDS: CYANOCOBALAMIN (B-12) 500mcg TABLET PO SCH (09:21)
[2018-01-28] MEDS: DAPSONE 100 MG TABLET PO SCH (09:21)
[2018-01-28] MEDS: MULTI-VITAMIN + MINERAL TABLET PO SCH (09:21)
[2018-01-28] MEDS: FUROSEMIDE 40 MG TABLET PO SCH (09:21)
[2018-01-28] MEDS: LISINOPRIL 10 MG TABLET PO SCH (09:21)
[2018-01-28] MEDS: LUBIPROSTONE 24 MCG CAPSULE PO SCH ×2 (09:21→20:03)
[2018-01-28] MEDS: POLYETHYL GLYCOL 3350 17gm PACKET PO SCH (09:21)
[2018-01-28] MEDS: ASPIRIN 81 MG CHEWABLE TABLET PO SCH (09:21)
[2018-01-28] MEDS: VORTIOXETINE 10 MG TABLET PO SCH (09:23)
[2018-01-28] MEDS: OXYCODONE/APAP 7.5 MG/325 MG TABLET PO SCH ×4 (09:23→20:03)
[2018-01-28] MEDS: ONDANSETRON ODT 4 MG TABLET PO SCH ×2 (09:24→20:03)
[2018-01-28] MEDS: SENNOSIDES 8.6 MG TABLET PO SCH ×2 (09:24→20:03)
[2018-01-28] MEDS: OMEGA-3 ACID ESTERS 1 GM CAPSULE PO SCH (09:24)
[2018-01-28] MEDS: MELOXICAM 7.5 MG TABLET PO SCH (09:24)
[2018-01-28] MEDS: REFRESH CLASSIC Eye Drops 0.4ml EACH EYE SCH ×3 (09:24→20:08)
[2018-01-28] MEDS: CLOTRIMAZOLE/BETAMETHASONE CREAM 15gm TOP SCH ×2 (09:25→20:30)
[2018-01-28] MEDS: HYDROCORTISONE 1% CREAM 28.35gm TOP SCH ×2 (09:26→20:35)
[2018-01-28] MEDS: BETAMETHASONE DIP 0.05% TOP SCH ×2 (09:27→20:36)
[2018-01-28] MEDS: LORazepam 1 MG TABLET PO SCH ×2 (09:30→14:49)
[2018-01-28] MEDS: BIOTIN 10 MG PO SCH (09:50)
[2018-01-28] MEDS: ALBUTEROL 2.5mg/3ml (0.083%) NEB AEROSOL SCH ×2 (14:25→19:40)
[2018-01-28] MEDS: MIRTAZAPINE 45 MG TABLET PO SCH (20:03)
[2018-01-28] MEDS: LORazepam 0.5 MG TABLET PO SCH (20:16)
[2018-01-28] MEDS: REFRESH CELLUVISC 1% Eye Drops 0.4ml EACH EYE SCH (20:58)
[2018-01-29] MEDS: ARFORMOTEROL NEB 15mcg/2ml AEROSOL SCH ×2 (06:40→20:58)
[2018-01-29] MEDS: BUDESONIDE INH.SOLN 0.25mg/2ml NEB AEROSOL SCH ×2 (06:40→20:58)
[2018-01-29] MEDS: ALBUTEROL 2.5mg/3ml (0.083%) NEB AEROSOL SCH ×2 (08:45→20:59)
[2018-01-29] MEDS: LORazepam 0.5 MG TABLET PO SCH ×3 (09:54→20:13)
[2018-01-29] MEDS: LEVOTHYROXINE 100 MCG TABLET PO SCH (09:54)
[2018-01-29] MEDS: ASPIRIN 81 MG CHEWABLE TABLET PO SCH (09:54)
[2018-01-29] MEDS: NALOXEGOL 12.5 MG TABLET PO SCH (09:54)
[2018-01-29] MEDS: SENNOSIDES 8.6 MG TABLET PO SCH ×2 (09:55→20:15)
[2018-01-29] MEDS: MULTI-VITAMIN + MINERAL TABLET PO SCH (09:55)
[2018-01-29] MEDS: LISINOPRIL 10 MG TABLET PO SCH (09:55)
[2018-01-29] MEDS: OMEGA-3 ACID ESTERS 1 GM CAPSULE PO SCH (09:55)
[2018-01-29] MEDS: VORTIOXETINE 10 MG TABLET PO SCH (09:55)
[2018-01-29] MEDS: FUROSEMIDE 40 MG TABLET PO SCH (09:56)
[2018-01-29] MEDS: DAPSONE 100 MG TABLET PO SCH (09:56)
[2018-01-29] MEDS: MELOXICAM 7.5 MG TABLET PO SCH (09:56)
[2018-01-29] MEDS: LUBIPROSTONE 24 MCG CAPSULE PO SCH ×2 (09:56→20:14)
[2018-01-29] MEDS: CYANOCOBALAMIN (B-12) 500mcg TABLET PO SCH (09:56)
[2018-01-29] MEDS: ONDANSETRON ODT 4 MG TABLET PO SCH ×2 (09:56→20:14)
[2018-01-29] MEDS: REFRESH CLASSIC Eye Drops 0.4ml EACH EYE SCH ×3 (09:57→20:42)
[2018-01-29] MEDS: HYDROCORTISONE 1% CREAM 28.35gm TOP SCH ×2 (09:57→20:40)
[2018-01-29] MEDS: OXYCODONE/APAP 7.5 MG/325 MG TABLET PO SCH ×4 (09:57→20:14)
[2018-01-29] MEDS: POLYETHYL GLYCOL 3350 17gm PACKET PO SCH (09:58)
[2018-01-29] MEDS: BETAMETHASONE DIP 0.05% TOP SCH ×2 (09:59→20:37)
[2018-01-29] MEDS: BIOTIN 10 MG PO SCH (09:59)
[2018-01-29] MEDS: CLOTRIMAZOLE/BETAMETHASONE CREAM 15gm TOP SCH ×2 (09:59→20:41)
--- NOTE | 2018-01-29 11:59 | Neuropsych Progress Note ---
[facility] Subjective Date: 01/29/18 - Sujective/Severity of Illness Medications: Albuterol Sulfate (Proventil Neb (0.083%)) 2.5 mg AEROSOL Q4H PRN PRN Reason: Shortness of air/wheezing Albuterol Sulfate (Proventil Neb (0.083%)) 2.5 mg AEROSOL BID [facility] Last Admin: 01/29/18 08:45 Dose: 2.5 mg Arformoterol Tartrate (Brovana Neb) 15 mcg AEROSOL RTBID [facility] Last Admin: 01/29/18 06:40 Dose: 15 mcg Artificial Tears (Refresh Classic) 1 drop EACH EYE TID [facility] Last Admin: 01/29/18 09:57 Dose: 1 drop Artificial Tears (Refresh Celluvisc) 1 drop EACH EYE HS [facility] Last Admin: 01/28/18 20:58 Dose: Not Given Aspirin (Asa) 81 mg PO DAILY [facility] Last Admin: 01/29/18 09:54 Dose: 81 mg Benzocaine (Orajel) 1 applic MM PRN PRN PRN Reason: PRN orders Betamethasone Dipropionate (Diprolene) 1 applic TOP BID [facility] Last Admin: 01/29/18 09:59 Dose: 1 applic Betamethasone/Clotrimazole (Lotrisone Cream) 1 applic TOP BID [facility] Last Admin: 01/29/18 09:59 Dose: 1 applic Budesonide (Pulmicort Inhalation) 0.25 mg AEROSOL RTBID [facility] Last Admin: 01/29/18 06:40 Dose: 0.25 mg Camphor/Menthol/Phenol (Mentholatum Original Ointment) 1 applic TOP Q12H PRN Last Admin: 01/28/18 20:36 Dose: 1 applic Cholecalciferol (Vit. D-3) 4,000 unit PO DAILY [facility] Last Admin: 01/29/18 09:55 Dose: 4,000 unit Cyanocobalamin (Vit. B-12) 1,000 mcg PO DAILY [facility] Last Admin: 01/29/18 09:56 Dose: 1,000 mcg Dapsone (Aczone) 25 mg PO DAILY [facility] Last Admin: 01/29/18 09:56 Dose: 25 mg Fentanyl (Duragesic Patch) 75 mcg TD Q72H [facility] Last Admin: 01/26/18 20:22 Dose: 75 mcg Fentanyl Citrate (Duragesic Patch Removal) 1 removal TD Q3D [facility] Furosemide (Lasix 40 Mg Tab) 40 mg PO DAILY [facility] Last Admin: 01/29/18 09:56 Dose: 40 mg Haloperidol (Haldol) 0.5 mg PO Q6H PRN PRN Reason: Extreme agitation Haloperidol Lactate (Haldol) 0.5 mg IM Q6H PRN PRN Reason: Extreme agitation Hydrocortisone (Cortizone-10 Cream) 1 applic TOP BID [facility] Last Admin: 01/29/18 09:57 Dose: 1 applic Ibuprofen (Motrin) 400 mg PO Q8H PRN PRN Reason: Pain Levothyroxine Sodium (Synthroid) 100 mcg PO ACB [facility] Last Admin: 01/29/18 09:54 Dose: 100 mcg Lisinopril (Prinivil) 10 mg PO DAILY [facility] Last Admin: 01/29/18 09:55 Dose: 10 mg Lorazepam (Ativan) 0.5 mg PO Q6H PRN PRN Reason: Extreme agitation Lorazepam (Ativan Inj) 0.5 mg IM Q6H PRN PRN Reason: Extreme agitation Lorazepam (Ativan) 0.5 mg PO TID [facility] Last Admin: 01/29/18 09:54 Dose: 0.5 mg Lubiprostone (Amitiza) 24 mcg PO BID [facility] Last Admin: 01/29/18 09:56 Dose: 24 mcg Magnesium Hydroxide (Mom) 30 ml PO DAILY PRN PRN Reason: Constipation Meloxicam (Mobic) 7.5 mg PO WB [facility] Mirtazapine (Remeron) 45 mg PO HS [facility] Last Admin: 01/28/18 20:03 Dose: 45 mg Multivitamins/Minerals (Therapeutic - M) 1 tab PO DAILY [facility] Last Admin: 01/29/18 09:55 Dose: 1 tab Naloxegol (Movantik) 25 mg PO DAILY [facility] Last Admin: 01/29/18 09:54 Dose: 25 mg Neomycin/Polymyxin/Bacitr/Pramoxine (Neosporin Plus) 1 applic TP BID PRN PRN Reason: PRN orders Non-Formulary Medication (Biotin [Biotin]) 10 mg PO DAILY [facility] Last Admin: 01/29/18 09:59 Dose: Not Given Nystatin (Mycostatin) 1 applic TP PRN PRN Last Admin: 01/26/18 21:59 Dose: 1 applic Cyuyr-9-Ejte Ethyl Esters (Lovaza) 1 gm PO DAILY [facility] Last Admin: 01/29/18 09:55 Dose: 1 gm Ondansetron HCl (Zofran Odt Tablet) 4 mg PO BID [facility] Last Admin: 01/29/18 09:56 Dose: 4 mg Oxycodone/Acetaminophen (Percocet 7.5/325) 1 tab PO QID [facility] Last Admin: 01/29/18 09:57 Dose: 1 tab Polyethylene Glycol (Miralax) 17 gm PO DAILY [facility] Last Admin: 01/29/18 09:58 Dose: 17 gm Senna (Senna Lax) 8.6 mg PO BID [facility] Last Admin: 01/29/18 09:55 Dose: 8.6 mg Sodium Chloride (Deep Sea Nasal Moisturizing [place]) 2 spray EA NOSTRIL PRN PRN PRN Reason: Dry nasal passages Vortioxetine (Trintellix) 10 mg PO DAILY [facility] Last Admin: 01/29/18 09:55 Dose: 10 mg Subjective: Patient seen and chart reviewed. Case discussed with treatment team. On interview, patient is pleasant and engaging, though frequently tearful. She states her mood is "fair" but reports feeling depressed and anxious all the time. She feels that she is more tearful here because there are less distractions and she has been thinking about her difficult past. She agrees that therapy may be beneficial in this regard. She is ruminative about being lonely and feeling disconnected from her family though she states she has friends at [place]. She shares with me a history of alcohol and Valium addiction, 30+ years ago. Her son has stated that she recently stopped participating in a 12-step program and things have gone downhill since then. Patient denies any SI, HI or AVH. Patient denies any adverse side effects related to psychotropic medications. Nursing staff report patient is frequently tearful but has not had any other significant behavioral difficulties. Patient has been adherent with medications. She has been participating in group. Patient slept 8 hours overnight. VSS. Patient is eating well. Psychotropic PRNs required in the past 24 hours: none. Discussed concerns with Ativan use given age and addiction history and she understands. Agrees that a long-term goal should be to taper Ativan and use another means to better control anxiety. Discussed risks/benefits of Abilify as augmentation for antidepressant and she agrees to start trial today. Start Time: 11:20 Stop Time: 11:40 Mental Status Exam Vitals: Last Vital Signs Temp 98.7 F 01/29/18 09:35 Pulse 90 01/29/18 09:35 Resp 16 01/29/18 11:08 BP 168/69 H 01/29/18 09:35 Pulse Ox 99 01/29/18 09:35 Height: 1.6 m Weight: 67.9 kg - Mental Status Exam Muscle Strength/Tone: Normal Dressing: Casual Grooming: Good Attitude: Cooperative Motor Activity: Normal Eye Contact: Good Speech: Normal Volume: Normal Rhythm: Appropriate Rhythm Sensory: Alert Orientation: Oriented X4 Mood: Depressed Affect: Sad, Tearful Rate of Thoughts: Appropriate Rate Thought Organization: Organized Associations: Intact Abstract Reasoning: Intact, able to abstract Thought Content: Ruminations, Hopelessness, Helplessness Perception/Psychotic: Perception Normal Language: Naming Intact Fund of Knowledge: Appropriate Memory: Grossly Intact Suicidal Ideation: Denies Homicidal Ideation: Denies Insight: Fair Judgement: Fair Impulse Control: Fair - Laboratory Result Diagrams: 01/28/18 08:12 01/28/18 08:12 Laboratory Results - last 24 hr 01/28/18 08:12 Vitamin B12 788 Folate 14.7 Assessment and Plan (1) MDD (major depressive disorder), recurrent severe, without psychosis Current visit: Yes Status: Acute (2) SHELTON (generalized anxiety disorder) Current visit: Yes Status: Acute Start Abilify 2mg PO today. Hospital Course Summary Disclaimer: The visit summary below is not to be considered part of the above Progress Note. Hospital Course: Plan - 01/27/18: Agree with admission to [facility] under the care of the psychiatric team for further evaluation and treatment. Hospitalist service consulted for medical management. Labs obtained in ED revealed mild hypernatremia (Na 146). Encourage oral intake. Will recheck on 01/29/18. Chronic anemia with history of B12 deficiency. Hgb stable (Hgb 11.7). Will check B12 level. Continue home medications. 2L oxygen at night baseline. Will complete [facility] admission work up - obtain B12, TSH, folate. Provide safe and supportive environment. Upon discharge, patient's care will be returned to her PCP, Dr. Saunders. 01/28/18 Psych note Pt is doing fairly well. 01/29/18 Psych: Discussed risks/benefits of Abilify and obtained informed consent. Start Abilify 2mg PO today.
[2018-01-29] MEDS: ARIPiprazole 2 MG TABLET PO SCH (14:13)
[2018-01-29] MEDS: MIRTAZAPINE 45 MG TABLET PO SCH (20:14)
[2018-01-29] MEDS: MENTHOL TOP PRN (20:43)
[2018-01-29] MEDS: CAMPHOR TOP PRN (20:43)
[2018-01-29] MEDS: REFRESH CELLUVISC 1% Eye Drops 0.4ml EACH EYE SCH (20:48)
[2018-01-30] MEDS: LEVOTHYROXINE 100 MCG TABLET PO SCH (06:16)
[2018-01-30] MEDS: BUDESONIDE INH.SOLN 0.25mg/2ml NEB AEROSOL SCH ×2 (07:41→20:05)
[2018-01-30] MEDS: ARFORMOTEROL NEB 15mcg/2ml AEROSOL SCH ×2 (07:41→21:15)
[2018-01-30] MEDS: MELOXICAM 7.5 MG TABLET PO SCH (07:58)
[2018-01-30] MEDS: ARIPiprazole 2 MG TABLET PO SCH ×2 (07:58→10:54)
[2018-01-30] MEDS: ASPIRIN 81 MG CHEWABLE TABLET PO SCH (07:59)
[2018-01-30] MEDS: DAPSONE 100 MG TABLET PO SCH (08:00)
[2018-01-30] MEDS: CYANOCOBALAMIN (B-12) 500mcg TABLET PO SCH (08:00)
[2018-01-30] MEDS: LORazepam 0.5 MG TABLET PO SCH ×3 (08:02→20:22)
[2018-01-30] MEDS: LUBIPROSTONE 24 MCG CAPSULE PO SCH ×2 (08:02→20:22)
[2018-01-30] MEDS: FUROSEMIDE 40 MG TABLET PO SCH (08:02)
[2018-01-30] MEDS: LISINOPRIL 10 MG TABLET PO SCH (08:02)
[2018-01-30] MEDS: OXYCODONE/APAP 7.5 MG/325 MG TABLET PO SCH ×4 (08:03→20:22)
[2018-01-30] MEDS: ONDANSETRON ODT 4 MG TABLET PO SCH ×2 (08:03→20:22)
[2018-01-30] MEDS: OMEGA-3 ACID ESTERS 1 GM CAPSULE PO SCH (08:03)
[2018-01-30] MEDS: MULTI-VITAMIN + MINERAL TABLET PO SCH (08:03)
[2018-01-30] MEDS: POLYETHYL GLYCOL 3350 17gm PACKET PO SCH (08:03)
[2018-01-30] MEDS: REFRESH CLASSIC Eye Drops 0.4ml EACH EYE SCH ×3 (08:03→20:24)
[2018-01-30] MEDS: NALOXEGOL 12.5 MG TABLET PO SCH (08:03)
[2018-01-30] MEDS: VORTIOXETINE 10 MG TABLET PO SCH (08:04)
[2018-01-30] MEDS: HYDROCORTISONE 1% CREAM 28.35gm TOP SCH ×2 (08:05→20:23)
[2018-01-30] MEDS: BETAMETHASONE DIP 0.05% TOP SCH ×2 (08:06→20:23)
[2018-01-30] MEDS: CLOTRIMAZOLE/BETAMETHASONE CREAM 15gm TOP SCH ×2 (08:06→20:24)
[2018-01-30] MEDS: BIOTIN 10 MG PO SCH (08:06)
[2018-01-30] MEDS: CAMPHOR TOP PRN ×2 (09:04→20:29)
[2018-01-30] MEDS: MENTHOL TOP PRN ×2 (09:04→20:29)
[2018-01-30] MEDS: ALBUTEROL 2.5mg/3ml (0.083%) NEB AEROSOL SCH ×2 (10:27→20:05)
[2018-01-30] MEDS: SENNOSIDES 8.6 MG TABLET PO SCH ×2 (10:54→20:22)
--- NOTE | 2018-01-30 18:04 | Neuropsych Progress Note ---
[facility] Subjective Date: 02/01/18 - Sujective/Severity of Illness Medications: Albuterol Sulfate (Proventil Neb (0.083%)) 2.5 mg AEROSOL Q4H PRN PRN Reason: Shortness of air/wheezing Albuterol Sulfate (Proventil Neb (0.083%)) 2.5 mg AEROSOL BID [facility], [facility] Last Admin: 01/30/18 10:27 Dose: 2.5 mg Arformoterol Tartrate (Brovana Neb) 15 mcg AEROSOL RTBID [facility], [facility] Last Admin: 01/30/18 07:41 Dose: 15 mcg Aripiprazole (Abilify 2 Mg) 2 mg PO DAILY [facility], [facility] Last Admin: 01/30/18 10:54 Dose: Not Given Artificial Tears (Refresh Classic) 1 drop EACH EYE TID [facility], [facility] Last Admin: 01/30/18 15:39 Dose: 1 drop Artificial Tears (Refresh Celluvisc) 1 drop EACH EYE HS [facility], [facility] Last Admin: 01/29/18 20:48 Dose: Not Given Aspirin (Asa) 81 mg PO DAILY [facility] Last Admin: 01/30/18 07:59 Dose: 81 mg Benzocaine (Orajel) 1 applic MM PRN PRN PRN Reason: PRN orders Betamethasone Dipropionate (Diprolene) 1 applic TOP BID [facility], [facility] Last Admin: 01/30/18 08:06 Dose: 1 applic Betamethasone/Clotrimazole (Lotrisone Cream) 1 applic TOP BID [facility] Last Admin: 01/30/18 08:06 Dose: 1 applic Budesonide (Pulmicort Inhalation) 0.25 mg AEROSOL RTBID [facility] Last Admin: 01/30/18 07:41 Dose: 0.25 mg Camphor/Menthol/Phenol (Mentholatum Original Ointment) 1 applic TOP Q6H PRN Last Admin: 01/30/18 09:04 Dose: 1 applic Cholecalciferol (Vit. D-3) 4,000 unit PO DAILY [facility] Last Admin: 01/30/18 07:59 Dose: 4,000 unit Cyanocobalamin (Vit. B-12) 1,000 mcg PO DAILY [facility] Last Admin: 01/30/18 08:00 Dose: 1,000 mcg Dapsone (Aczone) 25 mg PO DAILY [facility] Last Admin: 01/30/18 08:00 Dose: 25 mg Fentanyl (Duragesic Patch) 75 mcg TD Q72H [facility] Last Admin: 01/29/18 19:01 Dose: 75 mcg Fentanyl Citrate (Duragesic Patch Removal) 1 removal TD Q3D [facility] Last Admin: 01/29/18 19:12 Dose: Not Given Furosemide (Lasix 40 Mg Tab) 40 mg PO DAILY [facility] Last Admin: 01/30/18 08:02 Dose: 40 mg Haloperidol (Haldol) 0.5 mg PO Q6H PRN PRN Reason: Extreme agitation Haloperidol Lactate (Haldol) 0.5 mg IM Q6H PRN PRN Reason: Extreme agitation Hydrocortisone (Cortizone-10 Cream) 1 applic TOP BID [facility] Last Admin: 01/30/18 08:05 Dose: 1 applic Ibuprofen (Motrin) 400 mg PO Q8H PRN PRN Reason: Pain Levothyroxine Sodium (Synthroid) 100 mcg PO ACB [facility] Last Admin: 01/30/18 06:16 Dose: 100 mcg Lisinopril (Prinivil) 10 mg PO DAILY [facility] Last Admin: 01/30/18 08:02 Dose: 10 mg Lorazepam (Ativan) 0.5 mg PO Q6H PRN PRN Reason: Extreme agitation Lorazepam (Ativan Inj) 0.5 mg IM Q6H PRN PRN Reason: Extreme agitation Lorazepam (Ativan) 0.5 mg PO TID [facility] Last Admin: 01/30/18 15:39 Dose: 0.5 mg Lubiprostone (Amitiza) 24 mcg PO BID [facility] Last Admin: 01/30/18 08:02 Dose: 24 mcg Magnesium Hydroxide (Mom) 30 ml PO DAILY PRN PRN Reason: Constipation Meloxicam (Mobic) 7.5 mg PO WB [facility] Last Admin: 01/30/18 07:58 Dose: 7.5 mg Mirtazapine (Remeron) 45 mg PO HS [facility] Last Admin: 01/29/18 20:14 Dose: 45 mg Multivitamins/Minerals (Therapeutic - M) 1 tab PO DAILY [facility] Last Admin: 01/30/18 08:03 Dose: 1 tab Naloxegol (Movantik) 25 mg PO DAILY [facility] Last Admin: 01/30/18 08:03 Dose: 25 mg Neomycin/Polymyxin/Bacitr/Pramoxine (Neosporin Plus) 1 applic TP BID PRN PRN Reason: PRN orders Non-Formulary Medication (Biotin [Biotin]) 10 mg PO DAILY [facility] Last Admin: 01/30/18 08:06 Dose: Not Given Nystatin (Mycostatin) 1 applic TP PRN PRN Last Admin: 01/30/18 09:04 Dose: 1 applic Squpq-[id number] Ethyl Esters (Lovaza) 1 gm PO DAILY [facility] Last Admin: 01/30/18 08:03 Dose: 1 gm Ondansetron HCl (Zofran Odt Tablet) 4 mg PO BID [facility] Last Admin: 01/30/18 08:03 Dose: 4 mg Oxycodone/Acetaminophen (Percocet 7.5/325) 1 tab PO QID [facility] Last Admin: 01/30/18 17:23 Dose: 1 tab Polyethylene Glycol (Miralax) 17 gm PO DAILY [facility] Last Admin: 01/30/18 08:03 Dose: 17 gm Senna (Senna Lax) 8.6 mg PO BID [facility] Last Admin: 01/30/18 10:54 Dose: Not Given Sodium Chloride (Deep Sea Nasal Moisturizing [place]) 2 spray EA NOSTRIL PRN PRN PRN Reason: Dry nasal passages Vortioxetine (Trintellix) 10 mg PO DAILY [facility] Last Admin: 01/30/18 08:04 Dose: 10 mg Subjective: Patient seen and chart reviewed. Case discussed with treatment team. On interview, patient is pleasant and engaging. She report that her mood is better though she still has some anxiety, and inquires whether we can increase Abilify as she thinks it has been helpful. Affect is brighter and patient has willingly engaged in f/u plans for aftercare with . She feels that she is ready to leave the hospital and continue outpatient care. Patient denies any SI, HI or AVH. Patient denies any adverse side effects related to psychotropic medications. Denies any akathisia or insomnia related to Abilify, again discussed symptoms and to let me know if this occurred with increased dose. Nursing staff report patient has not had any other significant behavioral difficulties. Patient has been adherent with medications. She has been participating in group. Patient slept 7 hours overnight. VSS. Patient is eating well. Psychotropic PRNs required in the past 24 hours: none. Start Time: 12:40 Stop Time: 13:00 Mental Status Exam Vitals: Last Vital Signs Temp 97.5 F 01/30/18 16:00 Pulse 76 01/30/18 16:00 Resp 16 01/30/18 16:00 BP 129/66 01/30/18 16:00 Pulse Ox 98 01/30/18 16:00 Height: 1.6 m Weight: 67.9 kg - Mental Status Exam Muscle Strength/Tone: Normal Dressing: Casual Grooming: Good Attitude: Cooperative Motor Activity: Normal Eye Contact: Good Speech: Normal Volume: Normal Rhythm: Appropriate Rhythm Orientation: Oriented X4 Mood: Neutral Affect: Relaxed (though complains of anxiety) Rate of Thoughts: Appropriate Rate Thought Organization: Organized Associations: Intact Abstract Reasoning: Intact, able to abstract Thought Content: Normal Perception/Psychotic: Perception Normal Language: Naming Intact Fund of Knowledge: Appropriate Memory: Grossly Intact Suicidal Ideation: Denies Homicidal Ideation: Denies Insight: Fair Judgement: Fair Impulse Control: Fair - Laboratory Result Diagrams: 01/28/18 08:12 01/28/18 08:12 Laboratory Results - last 24 hr 01/30/18 07:20 Triglycerides 175 H Cholesterol 211 H LDL Cholesterol, Calc 134.0 VLDL Cholesterol 35.0 H HDL Cholesterol 42 Cholesterol/HDL Ratio 5.0 H Assessment and Plan (1) MDD (major depressive disorder), recurrent severe, without psychosis Current visit: Yes Status: Acute (2) SHELTON (generalized anxiety disorder) Current visit: Yes Status: Acute Plan to increase Abilify to 5mg PO daily as adjunctive treatment for antidepressant. Patient feels ready to leave tomorrow and continue outpatient psychiatric care. Recommended long-term goal should be to taper off Ativan, simplify med regimen. Hospital Course Summary Disclaimer: The visit summary below is not to be considered part of the above Progress Note. Hospital Course: Plan - 01/27/18: Agree with admission to [facility] under the care of the psychiatric team for further evaluation and treatment. Hospitalist service consulted for medical management. Labs obtained in ED revealed mild hypernatremia (Na 146). Encourage oral intake. Will recheck on 01/29/18. Chronic anemia with history of B12 deficiency. Hgb stable (Hgb 11.7). Will check B12 level. Continue home medications. 2L oxygen at night baseline. Will complete [facility] admission work up - obtain B12, TSH, folate. Provide safe and supportive environment. Upon discharge, patient's care will be returned to her PCP, Dr. Saunders. 01/28/18 Psych note Pt is doing fairly well. 01/29/18 Psych: Discussed risks/benefits of Abilify and obtained informed consent. Start Abilify 2mg PO today. 02/01/18 Psych: Plan to increase Abilify to 5mg PO daily as adjunctive treatment for antidepressant. Patient feels ready to leave tomorrow and continue outpatient psychiatric care. Recommended long-term goal should be to taper off Ativan, simplify med regimen.
[2018-01-30] MEDS: MIRTAZAPINE 45 MG TABLET PO SCH (20:22)
[2018-01-30] MEDS: REFRESH CELLUVISC 1% Eye Drops 0.4ml EACH EYE SCH (20:24)
[2018-01-31] MEDS: BUDESONIDE INH.SOLN 0.25mg/2ml NEB AEROSOL SCH ×2 (07:10→19:10)
[2018-01-31] MEDS: ALBUTEROL 2.5mg/3ml (0.083%) NEB AEROSOL SCH ×2 (07:14→19:10)
[2018-01-31] MEDS: ARIPiprazole 2 MG TABLET PO SCH (08:52)
[2018-01-31] MEDS: NALOXEGOL 12.5 MG TABLET PO SCH (08:52)
[2018-01-31] MEDS: SENNOSIDES 8.6 MG TABLET PO SCH ×2 (08:53→20:27)
[2018-01-31] MEDS: CYANOCOBALAMIN (B-12) 500mcg TABLET PO SCH (08:53)
[2018-01-31] MEDS: LUBIPROSTONE 24 MCG CAPSULE PO SCH ×2 (08:53→20:26)
[2018-01-31] MEDS: ASPIRIN 81 MG CHEWABLE TABLET PO SCH (08:53)
[2018-01-31] MEDS: MULTI-VITAMIN + MINERAL TABLET PO SCH (08:53)
[2018-01-31] MEDS: ONDANSETRON ODT 4 MG TABLET PO SCH ×2 (08:54→20:26)
[2018-01-31] MEDS: VORTIOXETINE 10 MG TABLET PO SCH (08:54)
[2018-01-31] MEDS: OMEGA-3 ACID ESTERS 1 GM CAPSULE PO SCH (08:54)
[2018-01-31] MEDS: LORazepam 0.5 MG TABLET PO SCH ×3 (08:55→20:26)
[2018-01-31] MEDS: DAPSONE 100 MG TABLET PO SCH (08:55)
[2018-01-31] MEDS: OXYCODONE/APAP 7.5 MG/325 MG TABLET PO SCH ×4 (08:56→20:26)
[2018-01-31] MEDS: MELOXICAM 7.5 MG TABLET PO SCH (08:56)
[2018-01-31] MEDS: POLYETHYL GLYCOL 3350 17gm PACKET PO SCH (08:57)
[2018-01-31] MEDS: LISINOPRIL 10 MG TABLET PO SCH (08:57)
[2018-01-31] MEDS: FUROSEMIDE 40 MG TABLET PO SCH (08:57)
[2018-01-31] MEDS: LEVOTHYROXINE 100 MCG TABLET PO SCH (08:59)
[2018-01-31] MEDS: HYDROCORTISONE 1% CREAM 28.35gm TOP SCH ×2 (09:10→20:25)
[2018-01-31] MEDS: REFRESH CLASSIC Eye Drops 0.4ml EACH EYE SCH ×3 (09:13→20:27)
[2018-01-31] MEDS: BETAMETHASONE DIP 0.05% TOP SCH ×2 (09:14→20:24)
[2018-01-31] MEDS: CLOTRIMAZOLE/BETAMETHASONE CREAM 15gm TOP SCH ×2 (09:14→20:25)
[2018-01-31] MEDS: BIOTIN 10 MG PO SCH (09:14)
[2018-01-31] MEDS: ARFORMOTEROL NEB 15mcg/2ml AEROSOL SCH ×2 (10:00→19:25)
[2018-01-31] MEDS: REFRESH CELLUVISC 1% Eye Drops 0.4ml EACH EYE SCH (20:24)
[2018-01-31] MEDS: MIRTAZAPINE 45 MG TABLET PO SCH (20:26)
[2018-02-01] MEDS: BUDESONIDE INH.SOLN 0.25mg/2ml NEB AEROSOL SCH ×2 (07:12→19:15)
[2018-02-01] MEDS: ARFORMOTEROL NEB 15mcg/2ml AEROSOL SCH ×2 (07:13→19:15)
[2018-02-01] MEDS: LEVOTHYROXINE 100 MCG TABLET PO SCH (08:15)
[2018-02-01] MEDS: LUBIPROSTONE 24 MCG CAPSULE PO SCH ×2 (08:16→20:29)
[2018-02-01] MEDS: MULTI-VITAMIN + MINERAL TABLET PO SCH (08:16)
[2018-02-01] MEDS: ARIPiprazole 2 MG TABLET PO SCH (08:16)
[2018-02-01] MEDS: DAPSONE 100 MG TABLET PO SCH (08:17)
[2018-02-01] MEDS: ASPIRIN 81 MG CHEWABLE TABLET PO SCH (08:17)
[2018-02-01] MEDS: LORazepam 0.5 MG TABLET PO SCH ×3 (08:18→20:29)
[2018-02-01] MEDS: ONDANSETRON ODT 4 MG TABLET PO SCH ×3 (08:19→22:13)
[2018-02-01] MEDS: NALOXEGOL 12.5 MG TABLET PO SCH (08:19)
[2018-02-01] MEDS: VORTIOXETINE 10 MG TABLET PO SCH (08:19)
[2018-02-01] MEDS: MELOXICAM 7.5 MG TABLET PO SCH (08:20)
[2018-02-01] MEDS: FUROSEMIDE 40 MG TABLET PO SCH (08:20)
[2018-02-01] MEDS: OXYCODONE/APAP 7.5 MG/325 MG TABLET PO SCH ×4 (08:20→20:30)
[2018-02-01] MEDS: OMEGA-3 ACID ESTERS 1 GM CAPSULE PO SCH (08:20)
[2018-02-01] MEDS: BETAMETHASONE DIP 0.05% TOP SCH ×2 (08:21→21:23)
[2018-02-01] MEDS: LISINOPRIL 10 MG TABLET PO SCH (08:21)
[2018-02-01] MEDS: CYANOCOBALAMIN (B-12) 500mcg TABLET PO SCH (08:21)
[2018-02-01] MEDS: BIOTIN 10 MG PO SCH (08:22)
[2018-02-01] MEDS: CLOTRIMAZOLE/BETAMETHASONE CREAM 15gm TOP SCH ×2 (08:25→22:43)
[2018-02-01] MEDS: HYDROCORTISONE 1% CREAM 28.35gm TOP SCH ×2 (08:25→21:24)
[2018-02-01] MEDS: POLYETHYL GLYCOL 3350 17gm PACKET PO SCH (08:26)
[2018-02-01] MEDS: REFRESH CLASSIC Eye Drops 0.4ml EACH EYE SCH ×3 (08:26→20:31)
[2018-02-01] MEDS: SENNOSIDES 8.6 MG TABLET PO SCH ×2 (08:26→20:38)
[2018-02-01] MEDS: MENTHOL TOP PRN (11:05)
[2018-02-01] MEDS: CAMPHOR TOP PRN (11:05)
--- NOTE | 2018-02-01 13:29 | Progress Note ---
- Date 02/01/18 Subjective: Patient is seen while resting in bed, preparing for an afternoon nap. She reports that she is feeling a little better with regard to her mood since starting the Abilify a few days ago. She denies any complaints or concerns. No chest pain, shortness of breath, abdominal pain, nausea, vomiting or dysuria. Her appetite is stable and bowels are moving. Dr. Rene continues to taper ativan and recommends avoid benzos. Objective Vital signs: Temperature 97.6 F 02/01/18 08:00 Pulse Rate 83 02/01/18 08:00 Respiratory Rate 18 02/01/18 08:00 Blood Pressure 152/67 H 02/01/18 08:00 Pulse Oximetry 94 02/01/18 08:00 Height/Weight/BMI: Height 5 ft 3 in Weight 149 lb 11.102 oz Body Mass Index 26.5 - Constitutional Present: no acute distress, well nourished, well developed, cooperative - Routine HEENT Exam Head: Present: normocephalic, atraumatic Eye: Present: PERRL. Absent: conjunctival icterus ENT: Present: mucous membranes moist, oropharynx clear - Routine Respiratory Exam Present: CTA bilaterally. Absent: respiratory distress, wheezes - Routine Cardiovascular Exam Present: RRR, S1, S2 - Routine Abdominal Exam Present: soft, normoactive bowel sounds, non distended - Routine Extremities Exam Present: no edema, full ROM, pulses intact - Routine Back/Spine/Pelvis Exam Back/Spine: Present: full ROM. Absent: vertebral tenderness - Routine Musculoskeletal Exam Musculoskeletal: Present: no clubbing or cyanosis, no tenderness - Routine Skin Exam Present: intact, dry, warm Comments: Afebrile. - Routine Neurological Exam Present: alert, moving all extremities, hearing grossly intact, normal speech - Routine Lymphatic Exam Lymphatic: Absent: lymphedema - Routine Psychiatric Exam Present: cooperative Results - Labs CBC & Chem 7: 01/28/18 08:12 01/28/18 08:12 Microbiology Results: Microbiology 01/26/18 22:03 Urine, Voided (Cc/notcc) Urine Culture - Final No Growth After 2 Days Assessment and Plan Assessment and Plan: Assessment: Severe anxiety with reported panic attacks (POA). Benzo dependency (POA). Hypernatremia - NA 146 (POA). CHF. CAD. COPD. Chronic night oxygen at 2L. Constipation. Anemia. Depression. Hypothyroidism. B12 deficiency. Insomnia. Hypertension. Macular degeneration. Chronic pain. Chronic back pain. Dry eyes. Allergic rhinitis. History of CVA. History of alcohol dependence. Plan - 02/01 Overall, the patient is doing well and is medically stable. Improved mood reported with addition of Abilify. Continue psychiatric care per Dr. Rene. Continue to taper ativan per psych. Slight improvement regarding hypernatremia with recent labs. Continue to encourage oral intake. B12 stable. Cholesterol elevated (211). Would recommend outpatient follow up once discharged with initiation of Lipitor prior to discharge. Provide safe and supportive environment. Recheck labs in AM to monitor blood count, electrolytes and renal function. Resuscitation Status: Full Code - Time spent with patient Time with patient PN: 25 minutes - Physician Narrative Narrative: Date: 02/01/18 Time: 1325 Hospital Course Summary Disclaimer: The visit summary below is not to be considered part of the above Progress Note. Hospital Course: Plan - 01/27/18: Agree with admission to [facility] under the care of the psychiatric team for further evaluation and treatment. Hospitalist service consulted for medical management. Labs obtained in ED revealed mild hypernatremia (Na 146). Encourage oral intake. Will recheck on 01/29/18. Chronic anemia with history of B12 deficiency. Hgb stable (Hgb 11.7). Will check B12 level. Continue home medications. 2L oxygen at night baseline. Will complete [facility] admission work up - obtain B12, TSH, folate. Provide safe and supportive environment. Upon discharge, patient's care will be returned to her PCP, Dr. Saunders. 01/28/18 Psych note Pt is doing fairly well. 01/29/18 Psych: Discussed risks/benefits of Abilify and obtained informed consent. Start Abilify 2mg PO today. Plan - 02/01 Overall, the patient is doing well and is medically stable. Improved mood reported with addition of Abilify. Continue psychiatric care per Dr. Rene. Continue to taper ativan per psych. Slight improvement regarding hypernatremia with recent labs. Continue to encourage oral intake. B12 stable. Cholesterol elevated (211). Would recommend outpatient follow up once discharged with initiation of Lipitor prior to discharge. Provide safe and supportive environment. Recheck labs in AM to monitor blood count, electrolytes and renal function.
[2018-02-01] MEDS ORDERED: ARIPiprazole 5 MG TABLET PO SCH (13:45)
--- NOTE | 2018-02-01 14:06 | Extended Care Facility Orders ---
Admission Orders Admit to:: [facility] Allergies/Adverse Reactions: Allergies aspirin Allergy (Verified 01/26/18 15:55) azithromycin Allergy (Verified 01/26/18 15:55) erythromycin base Allergy (Verified 01/26/18 15:55) iron Allergy (Verified 01/26/18 15:55) Admitting Diagnosis: depression Admitting Physician: Freda Horton MD Attending Physician: Freda Horton MD Code Status: Full Code Anticiapted Length of Stay: greater than 30 days Rehab Potential: fair Rehab Prognosis: fair Diet: 01/26/18 Breakfast Regular Diet [DIET] Diet Modifications: May use Facility Protocol or Standing Orders: Yes May have flu vaccine: Yes Evaluations/Treatment: Psychiatric Senior Care Certification: I certify that SNF services are required to be given on an Inpatient basis because of the patients need for detention care on a continuing basis for the condition(s) for which he/she received inpatient hospital services prior to his/her transfer to the SNF. SNF inpatient care is necessary for the following reasons Indication for Senior Care: Not Applicable - Additional Information In Event of Arrest: Start CPR,call 911,send patient to the ER Resident is Aware of Diagnosis: Yes Referrals: Aundrea Maloney [facility] [Other] (Aundrea Maloney on 02/08/18 at 2:00 pm for Therapy. [facility] [address] [place] [id number]) [facility] [Other] ([facility] does Intake appts. for Med Management by walk-in only. Mon-Wed. 8-3:30, Th. 11-3:30, and Fri. 8-2:30. Please bring Photo ID and Insurance cards to this appt. [facility] [address] [place] [address]) Darvin Saunders MD [Primary Care Provider] - (Dr. Roya Saunders will see patient on rounds at the facility for Hosp. follow-up. )
[2018-02-01] MEDS: ALBUTEROL 2.5mg/3ml (0.083%) NEB AEROSOL SCH (19:40)
[2018-02-01] MEDS: MIRTAZAPINE 45 MG TABLET PO SCH (20:30)
[2018-02-01] MEDS: REFRESH CELLUVISC 1% Eye Drops 0.4ml EACH EYE SCH (20:36)
[2018-02-02] MEDS: LEVOTHYROXINE 100 MCG TABLET PO SCH (07:06)
[2018-02-02] MEDS: ARFORMOTEROL NEB 15mcg/2ml AEROSOL SCH (07:57)
[2018-02-02] MEDS: BUDESONIDE INH.SOLN 0.25mg/2ml NEB AEROSOL SCH (07:57)
[2018-02-02] MEDS: ALBUTEROL 2.5mg/3ml (0.083%) NEB AEROSOL SCH (07:58)
[2018-02-02 08:47] VITALS: BP 151/69; PULSE 87; TEMP 98
[2018-02-02] MEDS: NALOXEGOL 12.5 MG TABLET PO SCH (08:55)
[2018-02-02] MEDS: MULTI-VITAMIN + MINERAL TABLET PO SCH (08:55)
[2018-02-02] MEDS: MELOXICAM 7.5 MG TABLET PO SCH (08:56)
[2018-02-02] MEDS: ASPIRIN 81 MG CHEWABLE TABLET PO SCH (08:56)
[2018-02-02] MEDS: FUROSEMIDE 40 MG TABLET PO SCH (08:57)
[2018-02-02] MEDS: CYANOCOBALAMIN (B-12) 500mcg TABLET PO SCH (08:57)
[2018-02-02] MEDS: DAPSONE 100 MG TABLET PO SCH (08:58)
[2018-02-02] MEDS: LISINOPRIL 10 MG TABLET PO SCH (08:59)
[2018-02-02] MEDS: LORazepam 0.5 MG TABLET PO SCH (08:59)
[2018-02-02] MEDS: LUBIPROSTONE 24 MCG CAPSULE PO SCH (08:59)
[2018-02-02] MEDS ORDERED: ARIPiprazole 5 MG TABLET PO SCH (09:00)
[2018-02-02] MEDS: OMEGA-3 ACID ESTERS 1 GM CAPSULE PO SCH (09:00)
[2018-02-02] MEDS: REFRESH CLASSIC Eye Drops 0.4ml EACH EYE SCH (09:00)
[2018-02-02] MEDS: VORTIOXETINE 10 MG TABLET PO SCH (09:00)
[2018-02-02] MEDS: ONDANSETRON ODT 4 MG TABLET PO SCH (09:00)
[2018-02-02] MEDS: OXYCODONE/APAP 7.5 MG/325 MG TABLET PO SCH ×2 (09:00→12:08)
[2018-02-02 09:04] VITALS: O2SAT 97
[2018-02-02] MEDS: POLYETHYL GLYCOL 3350 17gm PACKET PO SCH (09:05)
[2018-02-02] MEDS: SENNOSIDES 8.6 MG TABLET PO SCH (09:18)
[2018-02-02] MEDS: HYDROCORTISONE 1% CREAM 28.35gm TOP SCH (09:19)
[2018-02-02] MEDS: CLOTRIMAZOLE/BETAMETHASONE CREAM 15gm TOP SCH (09:19)
[2018-02-02] MEDS: BETAMETHASONE DIP 0.05% TOP SCH (09:20)
[2018-02-02] MEDS: BIOTIN 10 MG PO SCH (09:20)
--- NOTE | 2018-02-02 11:17 | Neuropsych Progress Note ---
[facility] Subjective Date: 02/02/18 - Sujective/Severity of Illness Medications: Albuterol Sulfate (Proventil Neb (0.083%)) 2.5 mg AEROSOL Q4H PRN PRN Reason: Shortness of air/wheezing Albuterol Sulfate (Proventil Neb (0.083%)) 2.5 mg AEROSOL BID [facility] Last Admin: 02/02/18 07:58 Dose: 2.5 mg Arformoterol Tartrate (Brovana Neb) 15 mcg AEROSOL RTBID [facility] Last Admin: 02/02/18 07:57 Dose: 15 mcg Aripiprazole (Abilify 5 Mg) 5 mg PO DAILY [facility] Last Admin: 02/02/18 08:56 Dose: 5 mg Artificial Tears (Refresh Celluvisc) 1 drop EACH EYE HS [facility] Last Admin: 02/01/18 20:36 Dose: 1 drop Artificial Tears (Refresh Classic) 1 drop EACH EYE TID [facility] Last Admin: 02/02/18 09:00 Dose: 1 drop Aspirin (Asa) 81 mg PO DAILY [facility] Last Admin: 02/02/18 08:56 Dose: 81 mg Benzocaine (Orajel) 1 applic MM PRN PRN PRN Reason: PRN orders Betamethasone Dipropionate (Diprolene) 1 applic TOP BID [facility] Last Admin: 02/02/18 09:20 Dose: 1 applic Betamethasone/Clotrimazole (Lotrisone Cream) 1 applic TOP BID [facility] Last Admin: 02/02/18 09:19 Dose: 1 applic Budesonide (Pulmicort Inhalation) 0.25 mg AEROSOL RTBID [facility] Last Admin: 02/02/18 07:57 Dose: 0.25 mg Camphor/Menthol/Phenol (Mentholatum Original Ointment) 1 applic TOP Q6H PRN Last Admin: 02/01/18 11:05 Dose: 1 applic Cholecalciferol (Vit. D-3) 4,000 unit PO DAILY [facility] Last Admin: 02/02/18 08:55 Dose: 4,000 unit Cyanocobalamin (Vit. B-12) 1,000 mcg PO DAILY [facility] Last Admin: 02/02/18 08:57 Dose: 1,000 mcg Dapsone (Aczone) 25 mg PO DAILY [facility] Last Admin: 02/02/18 08:58 Dose: 25 mg Fentanyl (Duragesic Patch) 75 mcg TD Q72H [facility] Last Admin: 02/01/18 18:11 Dose: 75 mcg Fentanyl Citrate (Duragesic Patch Removal) 1 removal TD Q3D [facility] Last Admin: 02/01/18 18:12 Dose: 1 removal Furosemide (Lasix 40 Mg Tab) 40 mg PO DAILY [facility] Last Admin: 02/02/18 08:57 Dose: 40 mg Hydrocortisone (Cortizone-10 Cream) 1 applic TOP BID [facility] Last Admin: 02/02/18 09:19 Dose: Not Given Ibuprofen (Motrin) 400 mg PO Q8H PRN PRN Reason: Pain Levothyroxine Sodium (Synthroid) 100 mcg PO ACB [facility] Last Admin: 02/02/18 07:06 Dose: 100 mcg Lisinopril (Prinivil) 10 mg PO DAILY [facility] Last Admin: 02/02/18 08:59 Dose: 10 mg Lorazepam (Ativan) 0.5 mg PO Q6H PRN PRN Reason: Extreme agitation Lorazepam (Ativan Inj) 0.5 mg IM Q6H PRN PRN Reason: Extreme agitation Lorazepam (Ativan) 0.5 mg PO TID [facility] Last Admin: 02/02/18 08:59 Dose: 0.5 mg Lubiprostone (Amitiza) 24 mcg PO BID [facility] Last Admin: 02/02/18 08:59 Dose: 24 mcg Magnesium Hydroxide (Mom) 30 ml PO DAILY PRN PRN Reason: Constipation Meloxicam (Mobic) 7.5 mg PO WB [facility] Last Admin: 02/02/18 08:56 Dose: 7.5 mg Mirtazapine (Remeron) 45 mg PO HS [facility] Last Admin: 02/01/18 20:30 Dose: 45 mg Multivitamins/Minerals (Therapeutic - M) 1 tab PO DAILY [facility] Last Admin: 02/02/18 08:55 Dose: 1 tab Naloxegol (Movantik) 25 mg PO DAILY [facility] Last Admin: 02/02/18 08:55 Dose: 25 mg Neomycin/Polymyxin/Bacitr/Pramoxine (Neosporin Plus) 1 applic TP BID PRN PRN Reason: PRN orders Non-Formulary Medication (Biotin [Biotin]) 10 mg PO DAILY [facility] Last Admin: 02/02/18 09:20 Dose: Not Given Nystatin (Mycostatin) 1 applic TP PRN PRN Last Admin: 01/31/18 20:28 Dose: 1 applic [id number] Ethyl Esters (Lovaza) 1 gm PO DAILY [facility] Last Admin: 02/02/18 09:00 Dose: 1 gm Ondansetron HCl (Zofran Odt Tablet) 4 mg PO BID [facility] Last Admin: 02/02/18 09:00 Dose: 4 mg Oxycodone/Acetaminophen (Percocet 7.5/325) 1 tab PO QID [facility] Last Admin: 02/02/18 09:00 Dose: 1 tab Polyethylene Glycol (Miralax) 17 gm PO DAILY [facility] Last Admin: 02/02/18 09:05 Dose: Not Given Senna (Senna Lax) 8.6 mg PO BID [facility] Last Admin: 02/02/18 09:18 Dose: Not Given Sodium Chloride (Deep Sea Nasal Moisturizing [place]) 2 spray EA NOSTRIL PRN PRN PRN Reason: Dry nasal passages Vortioxetine (Trintellix) 10 mg PO DAILY [facility] Last Admin: 02/02/18 09:00 Dose: 10 mg Subjective: Patient seen and chart reviewed. Case discussed with treatment team. On interview, patient is pleasant and engaging. She report that her mood and anxiety are better. She states that she would like to come back here if she ever has any more difficulties. Patient denies any SI, HI or AVH. Patient denies any adverse side effects related to psychotropic medications. Denies any akathisia or insomnia related to Abilify, again discussed symptoms and to let doctor know if this occurred with increased dose. Nursing staff report patient has not had any other significant behavioral difficulties. Patient has been adherent with medications. She has been participating in group. Patient slept 8 hours overnight. VSS. Patient is eating well. Psychotropic PRNs required in the past 24 hours: none. Start Time: 12:00 Stop Time: 12:20 Mental Status Exam Vitals: Last Vital Signs Temp 98.0 F 02/02/18 08:00 Pulse 87 02/02/18 08:00 Resp 20 02/02/18 08:59 BP 151/69 H 02/02/18 08:00 Pulse Ox 97 02/02/18 08:15 Height: 1.6 m Weight: 67.9 kg - Mental Status Exam Muscle Strength/Tone: Normal Dressing: Casual Grooming: Good Attitude: Cooperative Motor Activity: Normal Eye Contact: Good Speech: Normal Volume: Normal Rhythm: Appropriate Rhythm Orientation: Oriented X4 Mood: Euthymic Affect: Relaxed Rate of Thoughts: Appropriate Rate Thought Organization: Organized Associations: Intact Abstract Reasoning: Intact, able to abstract Thought Content: Normal Perception/Psychotic: Perception Normal Language: Naming Intact Fund of Knowledge: Appropriate Memory: Grossly Intact Suicidal Ideation: Denies Homicidal Ideation: Denies Insight: Fair Judgement: Fair Impulse Control: Good - Laboratory Result Diagrams: 02/02/18 07:02 02/02/18 07:02 Laboratory Results - last 24 hr 02/02/18 02/02/18 07:02 07:02 WBC 7.5 RBC 3.79 L Hgb 11.3 L Hct 36.4 MCV 96.0 MCH 29.8 MCHC 31.0 RDW Std Deviation 42.2 Plt Count 281 MPV 8.9 L Immature Gran % (Auto) 0.1 Neut % (Auto) 51.3 Lymph % (Auto) 37.8 [place] % (Auto) 6.0 Eos % (Auto) 4.3 H Baso % (Auto) 0.5 Neut # (Auto) 3.9 Lymph # (Auto) 2.8 [place] # (Auto) 0.5 Eos # (Auto) 0.3 Baso # (Auto) 0.0 Abs Immat Gran (auto) 0.01 Turbidity < 20 Sodium 145 H Potassium 4.8 Chloride 108 H Carbon Dioxide 27 Anion Gap 10 BUN 21.0 H Creatinine 1.1 GFR Calculation 49 BUN/Creatinine Ratio 19 Glucose 93 Calculated Osmolality 282 H Calcium 8.6 Icterus Index < 2 Specimen Hemolysis < 15 Assessment and Plan (1) MDD (major depressive disorder), recurrent severe, without psychosis Status: Chronic (2) SHELTON (generalized anxiety disorder) Status: Chronic Discharge to home today. Patient to f/u for outpatient therapy and med management at [facility]. Recommend long-term goal of tapering/discontinuing benzodiazepines. Hospital Course Summary Disclaimer: The visit summary below is not to be considered part of the above Progress Note. Hospital Course: Plan - 01/27/18: Agree with admission to [facility] under the care of the psychiatric team for further evaluation and treatment. Hospitalist service consulted for medical management. Labs obtained in ED revealed mild hypernatremia (Na 146). Encourage oral intake. Will recheck on 01/29/18. Chronic anemia with history of B12 deficiency. Hgb stable (Hgb 11.7). Will check B12 level. Continue home medications. 2L oxygen at night baseline. Will complete [facility] admission work up - obtain B12, TSH, folate. Provide safe and supportive environment. Upon discharge, patient's care will be returned to her PCP, Dr. Saunders. 01/28/18 Psych note Pt is doing fairly well. 01/29/18 Psych: Discussed risks/benefits of Abilify and obtained informed consent. Start Abilify 2mg PO today. 02/01/18 Psych: Plan to increase Abilify to 5mg PO daily as adjunctive treatment for antidepressant. Patient feels ready to leave tomorrow and continue outpatient psychiatric care. Recommended long-term goal should be to taper off Ativan, simplify med regimen. 02/02/18 Psych: Discharge to home today. Patient to f/u for outpatient therapy and med management at [facility]. Recommend long-term goal of tapering/ discontinuing benzodiazepines.
[2018-02-02 13:23] VITALS: RESP 18
== END 2018-02-02 13:15 | DRG 885 ==
LOC: ED 15:27 → GEN 18:23
PROVIDERS: ADMIT Psychiatry & Neurology Psychiatry; ATTEND Psychiatry & Neurology Psychiatry